=== PATIENT | male | born 1985 | race Hispanic/Latino ===

== ENCOUNTER 2020-02-16 19:15 | Emergency (ER) | payer BC, OTHER ==
--- OUTSIDE RECORDS SUMMARY | 2020-02-16 19:18 | XMS REPORT | Summary of Care ---
:1985 Author Organization [facility] Address [address] [place] [id number] Care Team Providers Name Role Phone Pcp, Does Not Have A Primary Care Provider Reason for Visit Reason Comments Fever All symptoms started Sunday afternoon. Sore Throat Cough Shortness of Breath Chills Headache Fatigue Exposure Pt states he works at the [employer] and was informed yesterday that a whole shift tested positiv e. Encounter Details Date Type Department Care Team Description 02/11/2020 Urgent Care [facility] Family Lucero Berman, LUCIA [address] [place] [address] [place] [address] Fever, unspecified fever cause (Primary Dx); [facility] [place] [address], Acute Care Clinic Sore throat; [address] [place] [address] Cough; Drive SOB (shortness of breath) [place] [address] Allergies Active Allergy Reactions Severity Noted Date Comments Amoxicillin Hives 02/27/2016 Penicillins Hives 02/27/2016 documented as of this encounter (statuses as of 02/11/2020) Medications Medication Sig Dispensed Refills Start Date End Date Status ALBUTEROL INHALE Inhale 2 Puffs as 0 Active needed for Other (Wheezing). traMADOL (ULTRAM) Take 1 tablet by mouth every 6 (six) hours as needed for Pain (scale 4-6). Miguel Johansen PA-C / Nicolás Kellogg MD 20 tablet 0 0 02/27/2016 Active 50 mg tablet [facility]# [id number] [facility]# [id number] Or Lic.# [id number] [facility]# [id number] omeprazole Take 1 capsule by 30 capsule 0 03/06/2016 Active (PRILOSEC) 40 mg mouth daily. capsule benzonatate 200 mg Take 1 capsule by 30 capsule 0 02/11/2020 0 02/21/2020 Active capsuleIndications: mouth 3 (three) Cough times daily as needed for Cough for up to 10 days. albuterol 90 Inhale 2 Puffs 8.5 g 0 02/11/2020 03/12/2020 Active mcg/actuation every 6 (six) inhalerIndications: hours as needed SOB (shortness of for Wheezing or breath) Shortness of Breath for up to 30 days. documented as of this encounter (statuses as of 02/11/2020) Active Problems No known active problemsdocumented as of this encounter (statuses as of 02/11/2020) Social History Tobacco Use Types Packs/Day Years Used Date Never Smoker Smokeless Tobacco: Never Used Sex Assigned at Date Recorded Not on file Job Start Date Occupation Industry Not on file Not on file Not on file Travel History Travel Start Travel End No recent travel history available. COVID-19 Exposure Response Date Recorded In the last month, have you been in contact with Yes 02/11/2020 9:13 AM CDT someone who was confirmed or suspected to have Coronavirus / COVID-19? documented as of this encounter Last Filed Vital Signs Vital Sign Reading Time Taken Comments Blood Pressure 131/85 02/11/2020 9:15 AM CDT Pulse 73 02/11/2020 9:15 AM CDT Temperature 37.2 C (98.9 F) 02/11/2020 9:15 AM CDT Respiratory Rate 20 02/11/2020 9:15 AM CDT Oxygen Saturation 96% 02/11/2020 9:15 AM CDT Inhaled Oxygen Concentration - - Weight 120.2 kg (265 lb) 02/11/2020 9:15 AM CDT Height 170.2 cm (5' 7") 02/11/2020 9:15 AM CDT Body Mass Index 41.5 02/11/2020 9:15 AM CDT documented in this encounter Progress Notes Ana Tavarez MA - 02/11/2020 9:00 AM CDT Zafar Guerin Jr. is a 34 year old male Chief Complaint Patient presents with Fever All symptoms started Sunday afternoon. 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 Vitals: 02/11/20 0915 BP: 131/85 Pulse: 73 Resp: 20 Temp: 37.2 C (98.9 F) SpO2: 96% Weight: 265 lb (120.2 kg) Height: 5' 7" (1.702 m) [email or web address] [id number] - [place] [address] [address] [facility] [email or web address] All Vitals taken, allergies and all medications reviewed, fall risk assessed. Pain level 0. Ana Tavarez MA Patient educated on plan of care for visit, swabbing technique, risks and benefits of test and length of time to receive results. Verbal consent obtained to perform test. CDC Fact Sheet for Patients nCoV Diagnostic Panel dated 11/09/2019 provided. Candy Contreras PA-C - 02/11/2020 9:00 AM CDT Cc: Chief Complaint Patient presents with Fever All symptoms started Sunday afternoon. Sore Throat Cough Shortness of Breath Chills Headache Fatigue Exposure Pt states he works at the [employer] and was informed yesterday that a whole shift tested positive. Zafar Guerin Jr. is a 34 year old male. HPI Patient presents with 4 day hx of cough, sore throat, fever (101.7F), sob, chills, body aches, fatigue, headache and staying about the same. He tried otc meds with relief. He has a hx of asthma, PNA, bronchitis. Has had exposure at work but not sure if in direct contact with positive covid employee Allergies Zafar is allergic to amoxicillin and pcn [penicillins]. Medications Outpatient Medications Prior to Visit Medication Sig Dispense Refill omeprazole (PRILOSEC) 40 mg capsule Take 1 capsule by mouth daily. 30 capsule 0 ALBUTEROL INHALE Inhale 2 Puffs as needed for Other (Wheezing). traMADOL (ULTRAM) 50 mg tablet Take 1 tablet by mouth every 6 (six) hours as needed for Pain (scale 4-6). Miguel Johansen PA-C / Nicolás Kellogg MD [facility]# [id number] [facility]# [id number] Or Lic.# [id number] NPI# [id number] 20 tablet 0 No facility-administered medications prior to visit. Histories History reviewed. No pertinent past medical history. History reviewed. No pertinent surgical history. Social History Socioeconomic History Marital status: Single Spouse name: Not on file Number of children: Not on file Years of education: Not on file Highest education level: Not on file Occupational History Not on file Social Needs Financial resource strain: Not on file Food insecurity: Worry: Not on file Inability: Not on file Transportation needs: Medical: Not on file Non-medical: Not on file Tobacco Use Smoking status: Not on file Substance and Sexual Activity Alcohol use: Not on file Drug use: Not on file Sexual activity: Not on file Lifestyle Physical activity: Days per week: Not on file Minutes per session: Not on file Stress: Not on file Relationships Social connections: Talks on phone: Not on file Gets together: Not on file Attends caodaism service: Not on file Active member of club or organization: Not on file Attends meetings of clubs or organizations: Not on file Relationship status: Not on file Intimate partner violence: Fear of current or ex partner: Not on file Emotionally abused: Not on file Physically abused: Not on file Forced sexual activity: Not on file Other Topics Concern Not on file Social History Narrative Not on file History reviewed. No pertinent family history. Review of Systems Constitutional: Positive for chills and fatigue. Negative for fever. HENT: Positive for sore throat. Negative for ear pain. Respiratory: Positive for cough and shortness of breath. Cardiovascular: Negative for chest pain and palpitations. Gastrointestinal: Negative. Genitourinary: Negative for dysuria and frequency. Musculoskeletal: Negative for myalgias. Skin: Negative for rash. Neurological: Positive for headaches. Psychiatric/Behavioral: The patient is not nervous/anxious. All other systems reviewed and are negative. Vital Signs BP 131/85 | Pulse 73 | Temp 37.2 C (98.9 F) | Resp 20 | Ht 5' 7" (1.702 m) | Wt 265 lb (120.2 kg) | SpO2 96% | BMI 41.50 kg/m Physical Exam Constitutional: He is oriented to person, place, and time. He appears well- developed and well-nourished. HENT: Right Ear: External ear normal. Left Ear: External ear normal. Nose: Nose normal. Mouth/Throat: Oropharynx is clear and moist. No oropharyngeal exudate. Neck: Normal range of motion. Cardiovascular: Normal rate and regular rhythm. Pulmonary/Chest: Effort normal and breath sounds normal. Abdominal: Soft. There is no tenderness. Musculoskeletal: Normal range of motion. Neurological: He is alert and oriented to person, place, and time. Psychiatric: He has a normal mood and affect. His behavior is normal. Judgment and thought content normal. Nursing note and vitals reviewed. Assessment/Plan 1. Fever, unspecified fever cause - COVID-19 (PCR MOLECULAR TESTING) 2. Sore throat - COVID-19 (PCR MOLECULAR TESTING) 3. Cough - COVID-19 (PCR MOLECULAR TESTING) - benzonatate 200 mg capsule; Take 1 capsule by mouth 3 (three) times daily as needed for Cough for up to 10 days. Dispense: 30 capsule; Refill: 0 4. SOB (shortness of breath) - COVID-19 (PCR MOLECULAR TESTING) - albuterol 90 mcg/actuation inhaler; Inhale 2 Puffs every 6 (six) hours as needed for Wheezing or Shortness of Breath for up to 30 days. Dispense: 8.5 g; Refill: 0 ER warnings and home care instructions given Return if symptoms worsen or fail to improve. You visited a COVID 19 clinic today and were tested for COVID 19. We are still awaiting results. At this time, we recommend that you remain in self quarantine along with those in your immediate household until the results are back. This process is taking approximately 72 hours. We will contact you with the results and instructions upon their receipt. Until you receive your results, please follow the advice you received in your AVS and the CDC document on what to do if you are sick with COVID. Please stay inside and preferably in one room. Avoid close contact with your family and neighbors to prevent further spread. Wear a face mask if in the presence of someone else. Do not share household items such as dishes and toiletries. Be sure to clean your space thoroughly and wash your hands frequently. You should self-quarantine until you no longer have a fever without taking fever reducing medications for 3 days and are at least 10 days from your first symptoms. Wear a mask in public subsequently until it has been greater than 14 days from your first symptom. Most people feel better within 7-14 days. If your symptoms are worsening and you feel very short of breath and you have difficulty performing basic tasks such as walking to the bathroom or preparing food, we would like you to contact the [facility] at [phone] or toll free to talk with a nurse or, if your symptoms are urgent, go to the nearest Emergency Room. Please wear a face mask and call prior to going to a healthcare facility. documented in this encounter Plan of Treatment Name Type Priority Associated Diagnoses Order S chedule COVID-19 (PCR MOLECULAR LAB Routine Fever, unspecifie d fever Ordered: 02/11/2020 TESTING) cause Sore throat Cough SOB (shortness of breath) Health Maintenance Due Date Last Done Comments VARICELLA VACCINES (1 of 2 - 1987 2-dose childhood series) DTaP,Tdap,and Td Vaccines ( - 1997 Tdap) Depression Screening 1998 INFLUENZA VACCINE (Season Ended) 2020 PNEUMOCOCCAL 0-64 YEARS COMBINED Aged Out No longer eligible based on SERIES patient's age to complete this topic documented as of this encounter Results Not on filedocumented in this encounter Visit Diagnoses Diagnosis Fever, unspecified fever cause - Primary Sore throat Acute pharyngitis Cough SOB (shortness of breath) Shortness of breath documented in this encounter Insurance Payer Benefit Plan Subscriber ID Effective Dates Phone Address Type / Group [facility] [id number] 2018-Faith [phone] [address] P[place] [id number] [place] [address] [phone] (Work) documented as of this encounter
--- OUTSIDE RECORDS SUMMARY | 2020-02-16 19:18 | XMS REPORT | Continuity of Care Document ---
:1985 Author Organization [facility] t Address [address] [place] [address] Care Team Providers Name Role Phone Pob1, [facility] Attending Clinician Unavailable Problems This patient has no known problems. Allergies, Adverse Reactions, Alerts This patient has no known allergies or adverse reactions. Medications This patient has no known medications. Procedures This patient has no known procedures. Encounters Start End Encounter Admission Attending Care Care Encounter Source Date/Time Date/Time Type Type Clinicians Facility Department ID 2020-02-11 2020-02-11 Urgent Pob1, Acute [facility] [id number] 09:04:57 09:42:48 [facility] [id number] [place] [id number] Mel [phone] [address] Results This patient has no known results.
[2020-02-16] MEDS ORDERED: NA CHLORIDE 0.9% 2,000 ML ONE (19:58)
[2020-02-16 20:34] LABS: Absolute Lymphocytes (CBC) 1.2 K/uL (0.7-4.9); Basophils % 0.6 % (0-1.3); Hematocrit 46.3 % (39.6-49.0); Lymphocytes % 18.6 % (15.3-44.8); MPV 8.3 fL (7.6-11.3); RBC Red Blood Cell Count 5.71 M/uL (4.33-5.43)
[2020-02-16 20:50] LABS: Protime INR 1.11
[2020-02-16 20:56] LABS: ALT/SGPT 94 U/L (12-78); AST/SGOT 58 U/L (15-37); Albumin 3.9 g/dL (3.4-5.0); Alkaline Phosphatase 99 U/L (45-117); BUN Blood Urea Nitrogen 15 mg/dL (7-18); Bicarbonate 26 mmol/L (21-32); Bilirubin Direct < 0.1 mg/dL (0-0.2); Bilirubin Total 0.4 mg/dL (0.2-1.0); CKMB Creatine Kinase MB < 1.0 ng/mL (0.3-3.6); Creatine Phosphokinase 173 U/L (39-308); Ferritin 413.5 ng/mL (26-388); Glucose Level 92 mg/dL (74-106); Lipase 133 U/L (73-393); Potassium 3.7 mmol/L (3.5-5.1); Protein, Total 8.7 g/dL (6.4-8.2); Sodium Level 138 mmol/L (136-145)
--- NOTE | 2020-02-16 21:08 | RAD REPORT ---
EXAM DESCRIPTION: RAD - Chest Single View - 02/16/2020 9:01 pm CLINICAL HISTORY: SOB Chest pain. COMPARISON: CHEST SINGLE VIEW dated 03/25/2010; CHEST PA AND LAT 2 VIEW dated 10/17/2007 FINDINGS: Portable technique limits examination quality. The lungs are grossly clear. The heart is normal in size. No displaced fractures. IMPRESSION: No acute intrathoracic process suspected.
--- NOTE | 2020-02-16 21:50 | EDPHYS ---
Physician Documentation [facility] Name: Zafar uGerin Jr Age: 34 yrs Sex: Male : 1985 Arrival Date: 02/16/2020 Time: 19:21 Bed 6 Private MD: ED Physician David Palomares HPI: 02/15 21:24 This 34 yrs old Male presents to ER via Ambulatory with complaints of snw Breathing Difficulty. 21:24 The patient has shortness of breath at rest. Onset: The symptoms/episode began/occurred snw gradually, 1.5 week(s) ago, and became worse and became persistent. Duration: The symptoms are continuous. Associated signs and symptoms: Pertinent positives: non-productive cough, fever, vomiting. Severity of symptoms: At their worst the symptoms were moderate in the emergency department the symptoms are unchanged. The patient has not experienced similar symptoms in the past. The patient has been recently seen by a physician: with similar presenting complaints, and apparently given a diagnosis of CoVid 19. Historical: - Allergies: 19:38 PENICILLINS; ca1 19:38 Amoxicillin; ca1 - Home Meds: 19:38 benzonatate oral oral [Active]; Albuterol Inhl [Active]; ca1 - PMHx: 19:38 None; ca1 - PSHx: 19:38 None; ca1 - Immunization history:: Adult Immunizations up to date. - Social history:: Smoking status: Patient denies any tobacco usage or history of. ROS: 21:24 Eyes: Negative for injury, pain, redness, and discharge, ENT: Negative for injury, snw pain, and discharge, Neck: Negative for injury, pain, and swelling, Cardiovascular: Negative for chest pain, palpitations, and edema. 21:24 Back: Negative for injury and pain, : Negative for injury, bleeding, discharge, and swelling, MS/Extremity: Negative for injury and deformity, Skin: Negative for injury, rash, and discoloration, Neuro: Negative for headache, weakness, numbness, tingling, and seizure, Psych: Negative for depression, anxiety, suicide ideation, homicidal ideation, and hallucinations. 21:24 Constitutional: Positive for body aches, fatigue, fever, malaise, poor PO intake. 21:24 Respiratory: Positive for cough, dyspnea on exertion, shortness of breath. 21:24 Abdomen/GI: Positive for nausea, vomiting. Exam: 21:22 Head/Face: Normocephalic, atraumatic. Eyes: Pupils equal round and reactive to light, snw extra-ocular motions intact. Lids and lashes normal. Conjunctiva and sclera are non-icteric and not injected. Cornea within normal limits. Periorbital areas with no swelling, redness, or edema. ENT: Nares patent. No nasal discharge, no septal abnormalities noted. Tympanic membranes are normal and external auditory canals are clear. Oropharynx with no redness, swelling, or masses, exudates, or evidence of obstruction, uvula midline. Mucous membranes moist. Neck: Trachea midline, no thyromegaly or masses palpated, and no cervical lymphadenopathy. Supple, full range of motion without nuchal rigidity, or vertebral point tenderness. No Meningismus. Chest/axilla: Normal chest wall appearance and motion. Nontender with no deformity. No lesions are appreciated. 21:22 Back: No spinal tenderness. No costovertebral tenderness. Full range of motion. Skin: Warm, dry with normal turgor. Normal color with no rashes, no lesions, and no evidence of cellulitis. MS/ Extremity: Pulses equal, no cyanosis. Neurovascular intact. Full, normal range of motion. Neuro: Awake and alert, GCS 15, oriented to person, place, time, and situation. Cranial nerves II-XII grossly intact. Motor strength 5/5 in all extremities. Sensory grossly intact. Cerebellar exam normal. Normal gait. Psych: Awake, alert, with orientation to person, place and time. Behavior, mood, and affect are within normal limits. 21:22 Constitutional: The patient appears alert, awake, anxious, febrile, obese, uncomfortable. 21:22 Cardiovascular: Rate: tachycardic, Rhythm: regular. 21:22 Respiratory: the patient does not display signs of respiratory distress, Respirations: shallow respirations, tachypnea, persistent cough, Breath sounds: bronchial sounds, that are moderate, are heard diffusely, Respiratory rate: 24 21:22 Abdomen/GI: Inspection: abdomen appears normal, obese Bowel sounds: normal, Palpation: abdomen is soft and non-tender. Vital Signs: 19:32 BP 123 / 80; Pulse 105; Resp 22; Temp 100.5(O); Pulse Ox 95% on R/A; Weight 120.2 kg ca1 (R); Height 5 ft. 7 in. (170.18 cm) (R); Pain 3/10; 20:26 BP 116 / 66; Pulse 87; Resp 21 S; Pulse Ox 96% on 2 lpm NC; jd3 21:11 BP 110 / 77; Pulse 83; Resp 19 S; Pulse Ox 98% on 2 lpm NC; jd3 21:58 Pulse 85; Resp 19 S; Pulse Ox 98% on R/A; jd3 22:49 Temp 99.0(O); jd3 19:32 Body Mass Index 41.50 (120.20 kg, 170.18 cm) ca1 MDM: 20:22 Patient medically screened. snw 21:25 Data reviewed: vital signs, nurses notes, lab test result(s), radiologic studies. Data snw interpreted: Pulse oximetry: on room air is 98 %. Interpretation: normal. Counseling: I had a detailed discussion with the patient and/or guardian regarding: the historical points, exam findings, and any diagnostic results supporting the discharge/admit diagnosis, lab results, radiology results, the need for outpatient follow up, to return to the emergency department if symptoms worsen or persist or if there are any questions or concerns that arise at home. Response to treatment: the patient's symptoms have mildly improved after treatment. Physician consultation: Ryan Sandhu was called at 21:27, was contacted at 21:27, regarding admission, to the medical/surgical unit. and will see patient in ED, shortly. 02/15 19:48 Order name: Basic Metabolic Panel; Complete Time: 20:58 snw 02/15 19:48 Order name: Blood Culture Adult (2) snw 02/15 19:48 Order name: CBC with Diff; Complete Time: 20:41 snw 02/15 19:48 Order name: Ckmb; Complete Time: 20:58 snw 02/15 19:48 Order name: CPK; Complete Time: 20:58 snw 02/15 19:48 Order name: Lactate; Complete Time: 21:07 snw 02/15 19:48 Order name: LFT's; Complete Time: 20:58 snw 02/15 19:48 Order name: Lipase; Complete Time: 20:58 snw 02/15 19:48 Order name: Procalcitonin; Complete Time: 21:18 snw 02/15 19:48 Order name: Protime (+inr); Complete Time: 20:58 snw 02/15 19:48 Order name: Ptt, Activated; Complete Time: 20:58 snw 02/15 19:48 Order name: Chest Single View XRAY; Complete Time: 21:14 snw 02/15 19:48 Order name: COVID-19 snw 02/15 19:48 Order name: Ferritin; Complete Time: 20:58 snw 02/15 19:48 Order name: Accucheck; Complete Time: 20:22 snw 02/15 19:48 Order name: Cardiac monitoring; Complete Time: 20:22 snw 02/15 19:48 Order name: IV Saline Lock - Large Bore; Complete Time: 20:22 snw 02/15 19:48 Order name: Labs collected and sent; Complete Time: 20:22 snw 02/15 19:48 Order name: O2 Per Protocol; Complete Time: 19:49 snw 02/15 19:48 Order name: O2 Sat Monitoring; Complete Time: 19:49 snw Administered Medications: 19:50 Not Given (Duplicate Order): NS 0.9% (30 ml/kg) 30 ml/kg IV at bolus once; Sepsis snw Protocol 20:22 Drug: NS 0.9% 1000 ml Route: IV; Rate: 1 bolus; Site: right antecubital; jd3 21:20 Follow up: Response: No adverse reaction; IV Status: Completed infusion; IV Intake: jd3 1000ml 20:23 Drug: NS 0.9% 1000 ml Route: IV; Rate: 1 bolus; Site: right antecubital; jd3 22:50 Follow up: Response: No adverse reaction; IV Status: Completed infusion; IV Intake: jd3 1000ml Disposition: 02/16 06:40 Co-signature as Attending Physician, David Palomares MD. [email or web address] Disposition: 02/16/20 21:49 Discharged to Home. Impression: Acute upper respiratory infection, unspecified - CoVid 19 positive, Fever presenting with conditions classified elsewhere. - Condition is Stable. - Discharge Instructions: Upper Respiratory Infection, Adult, Viral Respiratory Infection, Rehydration, Adult. - Work release form, Medication Reconciliation Form, Thank You Letter, Antibiotic Education, Prescription Opioid Use form. - Follow up: Emergency Department; When: As needed; Reason: Trouble breathing, Worsening of condition. Follow up: Private Physician; When: 1 week; Reason: Recheck today's complaints, Continuance of care, Re-evaluation by your physician. - Notes: Continue Issac and Kristin Hughes as directed. Signatures: Dispatcher [employer] EDMS Tsering Garces, PHOTORADIO OPERATOR-C PHOTORADIO OPERATOR-Csnw Beto Lopez RN RN jd3 Miranda Patel MD MD ma2 Michelle Ahuja RN RN ca1 David Palomares MD MD [email or web address] Corrections: (The following items were deleted from the chart) 02/15 20:22 19:48 EKG - Nurse/Tech ordered. snw jd3 22:49 21:49 02/16/2020 21:49 Discharged to Home. Impression: Acute upper respiratory jd3 infection, unspecified - CoVid 19 positive; Fever presenting with conditions classified elsewhere. Condition is Stable. Forms are Medication Reconciliation Form, Thank You Letter, Antibiotic Education, Prescription Opioid Use. Follow up: Emergency Department; When: As needed; Reason: Trouble breathing, Worsening of condition. Follow up: Private Physician; When: 1 week; Reason: Recheck today's complaints, Continuance of care, Re-evaluation by your physician. w
--- NOTE | 2020-02-16 21:50 | ER ---
Nurse's Notes [facility] Name: Zafar Guerin Jr Age: 34 yrs Sex: Male : 1985 Arrival Date: 02/16/2020 Time: 19:21 Bed 6 Private MD: Diagnosis: Acute upper respiratory infection, unspecified-CoVid 19 positive;Fever presenting with conditions classified elsewhere Presentation: 02/15 19:32 Chief complaint: Patient states: "I tested positive for Covid on Sunday. My cough is ca1 getting worse that I throw up, I get really short of breath with exertion, and I am having chest pains and tightness" Reports Htemp 101.7. 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 Coronavirus screen: Surgical mask placed on patient. Patient moved to private room, placed in contact and droplet isolation with eye protection until further assessment. Patient reports a cough. Patient reports shortness of breath or difficulty breathing. Patient reports a measured and/or subjective temperature greater than 100.4F. Patient denies travel on a cruise ship or to a country the [facility] currently lists as an affected area. Patient denies contact with known and/or suspected case of COVID-19. Prior COVID test collected on: Swabbed on February 10. Resulted February 12. Tested at [facility] [place]. Ebola Screen: Patient negative for fever greater than or equal to 101.5 degrees Fahrenheit, and additional compatible Ebola Virus Disease symptoms Patient denies exposure to infectious person. Patient denies travel to an Ebola-affected area in the 21 days before illness onset. No symptoms or risks identified at this time. Initial Sepsis Screen: Does the patient meet any 2 criteria? RR > 20 per min. HR > 90 bpm. Yes Does the patient have a suspected source of infection? Yes: Productive cough/pneumonia. Risk Assessment: Do you want to hurt yourself or someone else? Patient reports no desire to harm self or others. Onset of symptoms was February 16, 2020. 19:32 Method Of Arrival: Ambulatory ca1 19:32 Acuity: NUBIA 2 ca1 Triage Assessment: 20:26 Respiratory: Onset: The symptoms/episode began/occurred at an unknown time. the patient jkalyn has moderate shortness of breath. Historical: - Allergies: 19:38 PENICILLINS; ca1 19:38 Amoxicillin; ca1 - Home Meds: 19:38 benzonatate oral oral [Active]; Albuterol Inhl [Active]; ca1 - PMHx: 19:38 None; ca1 - PSHx: 19:38 None; ca1 - Immunization history:: Adult Immunizations up to date. - Social history:: Smoking status: Patient denies any tobacco usage or history of. Screenin:26 Abuse screen: Denies threats or abuse. Nutritional screening: No deficits noted. jd3 Tuberculosis screening: No symptoms or risk factors identified. Fall Risk Ambulatory Aid- None/Bed Rest/Nurse Assist (0 pts). Gait- Normal/Bed Rest/Wheelchair (0 pts) Mental Status- Oriented to own ability (0 pts). Total Gallagher Fall Scale indicates No Risk (0-24 pts). Assessment: 20:24 General: Appears uncomfortable, Behavior is calm, cooperative, appropriate for age. jd3 Pain: Complains of pain in chest Quality of pain is described as pressure. Neuro: Level of Consciousness is awake, alert, obeys commands, Oriented to person, place, time, situation. Cardiovascular: Capillary refill < 3 seconds Patient's skin is warm and dry. Rhythm is sinus tachycardia. Respiratory: Reports shortness of breath at rest cough that is non-productive, persistent Airway is patent Respiratory effort is labored, Respiratory pattern is symmetrical, tachypnea Breath sounds are diminished bilaterally. GI: Abdomen is round non-distended, Reports nausea, Patient currently denies abdominal pain. : No signs and/or symptoms were reported regarding the genitourinary system. EENT: No signs and/or symptoms were reported regarding the EENT system. Derm: Skin is intact, Skin is dry, Skin is normal, Skin temperature is warm. Musculoskeletal: Circulation, motion, and sensation intact. Range of motion: intact in all extremities. 21:11 Reassessment: Patient appears in no apparent distress at this time. No changes from jd3 previously documented assessment. Patient and/or family updated on plan of care and expected duration. Pain level reassessed. 21:22 Reassessment: hospitalist at bedside, awaiting disposition. jd3 21:57 Reassessment: Patient appears in no apparent distress at this time. Patient and/or [facility] family updated on plan of care and expected duration. Pain level reassessed. Patient is alert, oriented x 3, equal unlabored respirations, skin warm/dry/pink. awaiting fluid infusion prior to discharge Patient states feeling better. Vital Signs: 19:32 BP 123 / 80; Pulse 105; Resp 22; Temp 100.5(O); Pulse Ox 95% on R/A; Weight 120.2 kg ca1 (R); Height 5 ft. 7 in. (170.18 cm) (R); Pain 3/10; 20:26 BP 116 / 66; Pulse 87; Resp 21 S; Pulse Ox 96% on 2 lpm NC; jd3 21:11 BP 110 / 77; Pulse 83; Resp 19 S; Pulse Ox 98% on 2 lpm NC; jd3 21:58 Pulse 85; Resp 19 S; Pulse Ox 98% on R/A; jd3 22:49 Temp 99.0(O); jd3 19:32 Body Mass Index 41.50 (120.20 kg, 170.18 cm) ca1 ED Course: 19:21 Patient arrived in ED. ag3 19:37 Triage completed. ca1 19:38 Arm band placed on right wrist. ca1 19:40 Tsering Garces FNP-C is PHCP. snw 19:40 David Palomares MD is Attending Physician. snw 20:03 Beto Lopez RN is Primary Nurse. jd3 20:23 Inserted saline lock: 18 gauge in right antecubital area, using aseptic technique. jd3 Blood collected. placed by Tsering PALOMO. 20:26 Patient has correct armband on for positive identification. Placed in gown. Bed in low jd3 position. Call light in reach. Side rails up X 1. personnel monitor on. Pulse ox on. NIBP on. 21:02 Chest Single View XRAY In Process Unspecified. EDMS 22:48 No provider procedures requiring assistance completed. IV discontinued, intact, jd3 bleeding controlled, No redness/swelling at site. Pressure dressing applied. Administered Medications: 19:50 Not Given (Duplicate Order): NS 0.9% (30 ml/kg) 30 ml/kg IV at bolus once; Sepsis snw Protocol 20:22 Drug: NS 0.9% 1000 ml Route: IV; Rate: 1 bolus; Site: right antecubital; jd3 21:20 Follow up: Response: No adverse reaction; IV Status: Completed infusion; IV Intake: jd3 1000ml 20:23 Drug: NS 0.9% 1000 ml Route: IV; Rate: 1 bolus; Site: right antecubital; jd3 22:50 Follow up: Response: No adverse reaction; IV Status: Completed infusion; IV Intake: jd3 1000ml Intake: 21:20 IV: 1000ml; Total: 1000ml. jd3 22:50 IV: 1000ml; Total: 2000ml. jd3 Outcome: 21:49 Discharge ordered by MD. collazo 22:48 Discharged to home ambulatory. jd3 22:48 Condition: stable 22:48 Discharge instructions given to patient, Instructed on discharge instructions, follow up and referral plans. Demonstrated understanding of instructions, follow-up care. 22:49 Patient left the ED. jd3 Addendum: 02/24/2020 15:21 Addendum: Other Pt notified of positive COVID result by Dr. Rodríguez. Pt reports this is s s his second positive test and has been in contact with the health department. Signatures: Dispatcher [employer] EDNY Tsering Garces, PER-C TOW PICKER-Connie Metz RN RN ss Beto Lopez RN RN jCarine Foster ag3 Michelle Ahuja RN RN ca1 Corrections: (The following items were deleted from the chart) 02/15 19:37 19:32 Initial Sepsis Screen: Does the patient meet any 2 criteria? No. Patient's ca1 initial sepsis screen is negative. Does the patient have a suspected source of infection? No. Patient's initial sepsis screen is negative. ca1 19:37 19:32 Acuity: NUBIA 3 ca1 ca1
--- NOTE | 2020-02-16 22:36 | P.CNS ---
Date of Consult: 02/16/20 34-year-old presents to the ED with a complaint of coughing spells and shortness of breath. He recently tested positive for Covid 19. His girlfriend has been hospitalized due to Covid infection. Patient reports an episode of fever this morning. Chest x-ray in the ED shows no acute infiltrate. Patient reported his symptoms had improved after a few hours in the ED. He is not requiring oxygen. His oxygen saturations 98% on room air. He is not septic. Benefit of hospitalization is very minimal at this time. His clinical condition does not warrant admission at this time.
[2020-02-16 23:21] VITALS: BP 110/77; O2SAT 98
[2020-02-16 23:23] VITALS: TEMP 99
== END 2020-02-16 22:49 | disposition home or self-care (01) ==
LOC: ER 19:15
DX: U07.1 COVID-19 (principal); J06.9 Acute upper respiratory infection, unspecified; Z88.0 Allergy status to penicillin; Z88.1 Allergy status to other antibiotic agents
CPT/HCPCS: 96361; 87040 ×2; 85025; 80048; 36415; 82550; 85610; 80076; 83605; 85730; 82553; 82728; 83690; 84145; 71045; 96360; 99284; U0002; J7030

== ENCOUNTER 2021-06-18 07:31 | Emergency (ER) | payer BC, SELFPAY ==
[2021-06-18] MEDS ORDERED: LIDOCAINE 1% MPF 5 ML VIAL ONE (08:21)
[2021-06-18] MEDS ORDERED: BUPIVACAINE 0.5% PF 10 ML VIAL ONE (08:21)
--- NOTE | 2021-06-18 08:28 | EDPHYS ---
Physician Documentation [facility] Name: Zafar Guerin Jr Age: 35 yrs Sex: Male : 1985 Arrival Date: 06/18/2021 Time: 07:33 Bed 13 Private MD: ED Physician Miranda Patel HPI: 06/18 07:50 This 35 yrs old Male presents to ER via Ambulatory with complaints of Foreign cp Body - In Toe. 07:50 The patient or guardian reports the patient has a suspected foreign body, of the right cp foot. The reported likely foreign body is sliver of wood. 07:50 Onset: The symptoms/episode began/occurred 2 day(s) ago. cp 07:50 Current symptoms: pain, in the area of the foreign body. Treatment Prior to Arrival: cp none. Historical: - Allergies: 07:41 Amoxicillin; aa5 07:41 PENICILLINS; aa5 - PMHx: 07:41 Asthma; aa5 - PSHx: 07:41 Ear tubes; aa5 - Immunization history:: Client reports having NOT received the Covid vaccine. Last tetanus immunization: unknown. - Social history:: Smoking status: Patient denies any tobacco usage or history of. ROS: 07:10 Constitutional: Negative for fever. cp 07:10 Skin: Positive for foreign body sensation plantar surface of right small toe. 07:10 All other systems are negative. Exam: 07:15 Constitutional: The patient appears in no acute distress, alert, awake, non-toxic, well cp developed, well nourished. 07:15 Head/Face: Normocephalic, atraumatic. cp 07:15 Chest/axilla: Inspection: normal. 07:15 Cardiovascular: Rate: normal. 07:15 Respiratory: the patient does not display signs of respiratory distress, Respirations: normal. 07:15 Skin: superficial wooden sliver noted plantar surface at base of right fifth toe. Vital Signs: 07:40 Pulse 84; Resp 18 S; Temp 97.2(TE); Pulse Ox 97% on R/A; Weight 126.1 kg (R); Height 5 aa5 ft. 7 in. (170.18 cm) (R); 07:44 BP 153 / 106; Pulse 85; Resp 16; Pulse Ox 100% on R/A; dh3 07:40 Body Mass Index 43.54 (126.10 kg, 170.18 cm) aa5 Procedures: 08:30 Foreign Body Removal: sliver of wood, from the plantar surface base of right fifth toe, cp by using a hemostat, needle. MDM: 07:42 Patient medically screened. cp 08:28 Data reviewed: vital signs, nurses notes, and as a result, I will discharge patient. cp 08:28 Counseling: I had a detailed discussion with the patient and/or guardian regarding: the cp historical points, exam findings, and any diagnostic results supporting the discharge/admit diagnosis, to return to the emergency department if symptoms worsen or persist or if there are any questions or concerns that arise at home. Special discussion: I discussed in detail with the patient the higher chance of wound infection based on his presenting history. 06/18 07:43 Order name: Dressing - Wound; Complete Time: 08:09 cp 06/18 07:43 Order name: Gloves, Sterile; Complete Time: 08:09 cp 06/18 07:43 Order name: Setup Suture Tray; Complete Time: 08:02 cp Administered Medications: No medications were administered Disposition: 08:30 Chart complete. cp 17:31 Co-signature as Attending Physician, Miranda Patel MD PA/DOCUMENT PHOTOGRAPHER's history reviewed, ma2 patient interviewed, and examined. I agree with assessment and care plan and confirm the diagnosis (es) above. Disposition Summary: 06/18/21 08:28 Discharge Ordered Location: Home cp Problem: new cp Symptoms: have improved cp Condition: Stable cp Diagnosis - Superficial foreign body of toe - splinter, right fifth toe cp Followup: cp - With: Private Physician - When: 1 - 2 days - Reason: Worsening of condition Discharge Instructions: - Discharge Summary Sheet cp - Hand or Foot Foreign Body, Adult cp Forms: - Medication Reconciliation Form cp - Thank You Letter cp - Antibiotic Education cp - Prescription Opioid Use cp - Work release form eb Prescriptions: - Cephalexin 500 mg Oral Capsule - take 1 capsule by ORAL route every 8 hours for 10 days; 30 capsule; Refills: 0, cp Product Selection Permitted - Ibuprofen 800 mg Oral Tablet - take 1 tablet by ORAL route every 8 hours As needed take with food; 30 tablet; cp Refills: 0, Product Selection Permitted Signatures: Tiffanie Jensen RN RN aa5 Richard Lewis PA PA cp Miranda Patel MD MD ma2 Corrections: (The following items were deleted from the chart) 17:06/17 07:10 Skin: Positive for foreign body sensation plantar surface of right small cp toe, cp 06/18 17:06/17 07:10 Constitutional: Negative for fever, cp cp 06/18 17:06/17 07:10 All other systems are negative, cp cp
--- NOTE | 2021-06-18 08:28 | ER ---
Nurse's Notes [facility] Name: Zafar Guerin Jr Age: 35 yrs Sex: Male : 1985 Arrival Date: 06/18/2021 Time: 07:33 Bed 13 Private MD: Diagnosis: Superficial foreign body of toe-splinter, right fifth toe Presentation: 06/18 07:39 Chief complaint: Patient states: "I had a splinter on my boot and when I went to step aa5 it got into my toe and it's been there for about 2 days now". Reports FB to right foot. Onset of symptoms was May 2021. 07:39 Acuity: NUBIA 4 aa5 07:40 Coronavirus screen: At this time, the client does not indicate any symptoms associated aa5 with coronavirus-19. Ebola Screen: No symptoms or risks identified at this time. Initial Sepsis Screen: Does the patient meet any 2 criteria? No. Patient's initial sepsis screen is negative. Does the patient have a suspected source of infection? No. Patient's initial sepsis screen is negative. Risk Assessment: Do you want to hurt yourself or someone else? Patient reports no desire to harm self or others. 07:40 Method Of Arrival: Ambulatory aa5 Historical: - Allergies: 07:41 Amoxicillin; aa5 07:41 PENICILLINS; aa5 - PMHx: 07:41 Asthma; aa5 - PSHx: 07:41 Ear tubes; aa5 - Immunization history:: Client reports having NOT received the Covid vaccine. Last tetanus immunization: unknown. - Social history:: Smoking status: Patient denies any tobacco usage or history of. Vital Signs: 07:40 Pulse 84; Resp 18 S; Temp 97.2(TE); Pulse Ox 97% on R/A; Weight 126.1 kg (R); Height 5 aa5 ft. 7 in. (170.18 cm) (R); 07:44 BP 153 / 106; Pulse 85; Resp 16; Pulse Ox 100% on R/A; dh3 07:40 Body Mass Index 43.54 (126.10 kg, 170.18 cm) aa5 ED Course: 07:33 Patient arrived in ED. ds1 07:37 Richard Lewis PA is PHCP. cp 07:37 Miranda Patel MD is Attending Physician. cp 07:39 Arm band placed on. aa5 07:40 Triage completed. aa5 07:51 Ross Lord, RN is Primary Nurse. ae4 Administered Medications: No medications were administered Outcome: 08:28 Discharge ordered by . cp 08:55 Patient left the ED. ae4 Signatures: Ghada Good ds1 Tiffanie Jensen, RN RN aa5 Richard Lewis PA PA Radha Prater [facility] Ross Lord, RN RN ae4
[2021-06-18 08:58] VITALS: TEMP 97.2
[2021-06-18 09:00] VITALS: BP 153/106; O2SAT 100
== END 2021-06-18 08:55 | disposition home or self-care (01) ==
LOC: ER 07:31
DX: S90.454A Superficial foreign body, right lesser toe(s), initial encounter (principal); X58.XXXA Exposure to other specified factors, initial encounter; Y93.9 Activity, unspecified; Y92.9 Unspecified place or not applicable; Z88.0 Allergy status to penicillin; Z88.1 Allergy status to other antibiotic agents
CPT/HCPCS: 99281

== ENCOUNTER 2022-05-16 13:28 | Emergency (ER) | payer SELFPAY ==
--- OUTSIDE RECORDS SUMMARY | 2022-05-16 13:34 | XMS REPORT | Continuity of Care Document ---
:1985 Author Organization [facility] t Address [address] [place] [address] Care Team Providers Name Role Phone Pcp, Patient Does Not Have A Primary Care Physician [phone] HAWA MCGEE Attending Clinician Unavailable Radha Hughes RN Attending Clinician Unavailable Only, Jose Db Test Attending Clinician Unavailable Enrique Thorne MD Attending Clinician ENRIQUE THORNE Attending Clinician Unavailable Hawa Mcgee MD Attending Clinician Peg Mooney Attending Clinician Doctor Unassigned, [place] Attending Clinician Unavailable Broderick RYAN, Marisel Ng Attending Clinician Unavailable Campos Bermudez MD Attending Clinician Chris Downey MD Attending Clinician Monty Milner MD Attending Clinician Brenda Perez Attending Clinician Corona Reed DO Attending Clinician Provider, [facility] Attending Clinician Unavailable Aneyesenia ALBARADO Brenda Attending Clinician BRENDA HILL Attending Clinician Unavailable [facility] Attending Clinician Unavailable Jaimee Alejo Attending Clinician JAIMEE MANDUJANO Attending Clinician Unavailable HAWA MCGEE Admitting Clinician Unavailable Juanah MD, Monty Admitting Clinician Payers Payer Name Policy Type Policy Number Effective Date Expiration Date Elicia bach [facility] [id number] 2018 00:00:00 Problems Condition Condition Condition Status Onset Resolution Last Treating Co mments Source Name Details Category Date Date Treatment Clinician Date IBD IBD Disease Active Univers (inflammat (inflammat 03-01 it [place] disease[place] disease[place] 00 Med[place] Branch Acute Acute Disease Active Univers appendicit appendicit 02-28 it y of is is 00:00: 00 Medical Branch Morbid Morbid Disease Active Univers obesity obesity 02-28 [place] of with body with body [place] mass index mass index 00 Me dical of of Branch 40.0-49.9 40.0-49.9 No known No known Disease Unive rs active active ity of problems problems [facility] [place] [facility] Allergies, Adverse Reactions, Alerts Allergy Allergy Status Severity Reaction(s) Onset Inactive Treating Comm ents Source Name Type Date Date Clinician IODINE Drug Active Hives Univers AND Class 7-05 ity of IODIDE 00:00: [place] CONTAINI 00 Medical Branch PRODUCTS Iodine Propensi Active Hives Univers And ty to 02-28 ity of Iodide adverse 00:00: [place] Containi reaction 00 Medica l s Branch Products AMOXICIL DRUG Active Hives Univers AMANDO INGREDI - ity of 00:00: [place] 00 Medical Branch PENICILL Drug Active Hives Univers INS Class 7-03 ity of 00:00: [place] 00 Medical Branch Amoxicil Propensi Active Hives Univer s amando ty to 02-26 ity of adverse 00:00: [place] reaction 00 Medical s Branch Penicill Propensi Active Hives Univer s ins ty to 02-26 ity of adverse 00:00: [place] reaction 00 Medical s Branch Social History Social Habit Start Date Stop Date Quantity Comments Source Exposure to Yes University of SARS-CoV-2 [place] [facility] (event) Branch Tobacco use and 2021-04-14 2021-04-14 Never used Universit y of exposure 00:00:00 00:00:00 [facility] [place] [facility] Alcohol intake 2021-04-14 2021-04-14 Current drinker Unive rsity of 00:00:00 00:00:00 of alcohol [place] [facility] (finding) Branch History SDOH 2021-02-28 2021-02-28 21 University o f Education 00:00:00 00:00:00 [facility] [place] [facility] Sex [birth year] Universit y of 00:00:00 00:00:00 [facility] [place] [facility] Smoking Status Start Date Stop Date Source Never smoker [facility] Branch Medications Ordered Filled Start Stop Current Ordering Indication Dosage Frequency Signature Comments Components Source Medication Medication Date Date Medication? Clinician (SIG) Name Name predniSONE 2020- No [id number] 40mg Take 2 Univers 20 mg 03-04- tablets by ity of tablet 00:00: 04:59 mouth [place] 00 :00 daily for Medical 4 days. Branch predniSONE 2020- No [id number] 40mg Take 2 Univers 20 mg 03-04-14 tablets by ity of tablet 00:00: 04:59 mouth [place] 00 :00 daily for Medical 4 days. Branch predniSONE 2020- No [id number] 40mg Take 2 Univers 20 mg 03-04-14 tablets by ity of tablet 00:00: 04:59 mouth [place] 00 :00 daily for Medical 4 days. Branch ALBUTEROL Yes 2{puff} Inhale 2 U nivers INHALE 7-08 Puffs as ity of 20:37: needed for [place] [address] Other Medical (Wheezing) Branch . ALBUTEROL Yes 2{puff} Inhale 2 U nivers INHALE 7-08 Puffs as ity of 20:37: needed for [place] [address] Other Medical (Wheezing) Branch . ALBUTEROL Yes 2{puff} Inhale 2 U nivers INHALE 7-08 Puffs as ity of 20:37: needed for [place] [address] Other Medical (Wheezing) Branch . ALBUTEROL Yes 2{puff} Inhale 2 U nivers INHALE 7-08 Puffs as ity of 20:37: needed for [place] [address] Other Medical (Wheezing) Branch . ALBUTEROL Yes 2{puff} Inhale 2 U nivers INHALE 7-08 Puffs as ity of 20:37: needed for [place] 21 Other Medical (Wheezing) Branch . ALBUTEROL Yes 2{puff} Inhale 2 U nivers INHALE 7-08 Puffs as ity of 20:37: needed for [place] 21 Other Medical (Wheezing) Branch . ALBUTEROL Yes 2{puff} Inhale 2 U nivers INHALE 7-08 Puffs as ity of 20:37: needed for [place] 21 Other Medical (Wheezing) Branch . ALBUTEROL Yes 2{puff} Inhale 2 U nivers INHALE 7-08 Puffs as ity of 20:37: needed for [place] 21 Other Medical (Wheezing) Branch . ALBUTEROL Yes 2{puff} Inhale 2 U nivers INHALE 7-08 Puffs as ity of 20:37: needed for [place] 21 Other Medical (Wheezing) Branch . ALBUTEROL Yes 2{puff} Inhale 2 U nivers INHALE 7-08 Puffs as ity of 20:37: needed for [place] 21 Other Medical (Wheezing) Branch . ALBUTEROL Yes 2{puff} Inhale 2 U nivers INHALE 7-08 Puffs as ity of 20:37: needed for [place] 21 Other Medical (Wheezing) Branch . ciprofloxac 2020- No [id number] 500mg Take 1 Univers in HCl 500 7-16 tablet by ity of mg tablet 00:00: 04:59 mouth [place] 00 :00 every 12 Medical (twelve) Branch hours for 7 days. ciprofloxac 2020- No [id number] 500mg Take 1 Univers in HCl 500 03-03-16 tablet by ity of mg tablet 00:00: 04:59 mouth [place] 00 :00 every 12 Medical (twelve) Branch hours for 7 days. ciprofloxac 2020- No [id number] 500mg Take 1 Univers in HCl 500 7-16 tablet by ity of mg tablet 00:00: 04:59 mouth [place] 00 :00 every 12 Medical (twelve) Branch hours for 7 days. ciprofloxac 2020- No [id number] 500mg Take 1 Univers in HCl 500 708 07-16 tablet by ity of mg tablet 00:00: 04:59 mouth [place] 00 :00 every 12 Medical (twelve) Branch hours for 7 days. ciprofloxac 2020- No [id number] 500mg Take 1 Univers in HCl 500 03-03-16 tablet by ity of mg tablet 00:00: 04:59 mouth [place] 00 :00 every 12 Medical (twelve) Branch hours for 7 days. ciprofloxac 2020- No [id number] 500mg Take 1 Univers in HCl 500 03-0316 tablet by ity of mg tablet 00:00: 04:59 mouth [place] 00 :00 every 12 Medical (twelve) Branch hours for 7 days. predniSONE 2020-2020- No [id number] 30mg Take 3 Univers 10 mg 03-03-14 tablets by ity of tablet 00:00: 04:59 mouth [place] 00 :00 daily for Medical 5 days. [place] predniSONE 2020- No [id number] 20mg Take 1 Univers 20 mg 03-03-14 tablet by ity of tablet 00:00: 04:59 mouth [place] 00 :00 daily for Medical 5 days. Branch predniSONE 2020- No [id number] 10mg Take 1 Univers 10 mg 03-03-14 tablet by ity of tablet 00:00: 04:59 mouth [place] 00 :00 daily for Medical 5 days. [place] predniSONE 2020- No [id number] 30mg Take 3 Univers 10 mg 03-03-14 tablets by ity of tablet 00:00: 04:59 mouth [place] 00 :00 daily for Medical 5 days. Branch predniSONE 2020- No [id number] 20mg Take 1 Univers 20 mg 03-03-14 tablet by ity of tablet 00:00: 04:59 mouth [place] 00 :00 daily for Medical 5 days. Branch predniSONE 2020- No [id number] 10mg Take 1 Univers 10 mg -04 02-14 tablet by ity of tablet 00:00: 04:59 mouth [place] 00 :00 daily for Medical 5 days. Branch predniSONE 2020- No [id number] 30mg Take 3 Univers 10 mg -04 02-14 tablets by ity of tablet 00:00: 04:59 mouth [place] 00 :00 daily for Medical 5 days. Branch predniSONE 2020- No [id number] 20mg Take 1 Univers 20 mg 03-03 tablet by ity of tablet 00:00: 04:59 mouth [place] 00 :00 daily for Medical 5 days. Branch predniSONE 2020- No [id number] 10mg Take 1 Univers 10 mg 03-03 tablet by ity of tablet 00:00: 04:59 mouth [place] 00 :00 daily for Medical 5 days. Branch predniSONE Yes 40mg 40 mg, Unive rs (DELTASONE) 7-07 Oral, ity of tablet 40 20:15: DAILY, [place] mg 00 First dose Medical on Sun03/02/21 at 1515, Until Discontinu ed, Routine morpHINE Yes 4mg 4 mg, Slow Uni vers injection 4 03-02 IV Push, ity of mg 02:04: Q4HPRN, [place] 31 Starting Medical 03/01/21 Branch at 2104, Until Discontinu ed, Routine, Pain (scale 7-10) pantoprazol Yes 40mg 40 mg, Univ ers e 7-06 Oral, ity of (PROTONIX) 14:00: DAILY, [place] EC tablet 00 First dose Medi alison 40 mg on Sun03/01/21 at 0900, Until Discontinu ed, Routine NaCl 0.9% Yes 1000mL at 125 [facility] ers (NS) IV 7-06 mL/hr, IV ity of infusion 01:15: Infusion, [place] 1,000 mL 00 CONTINUOUS Medic al , Starting [place] Sun02/28/21 at 2015, Until Discontinu ed, Routine ondansetron Yes 4mg 4 mg, Slow Univers (ZOFRAN 7- IV Push, ity of (PF)) 01:03: Q6HPRN, [place] injection 4 59 Starting Medi alison mg Sun02/28/21 Branch at 2002, Until Discontinu ed, Routine, Nausea and Vomiting (N/V) morpHINE 2020- No 4mg 4 mg, Slow Un neil injection 4 03-01 07-07 IV Push, ity of mg 01:03: 01:02 Q4RN, [place] 56 :56 Starting Medical [facility] 02/28/21 Branch at 2002, Until Sun03/01/21 at 2001, Routine, Pain (scale 7-10) HYDROcodone 2020- No 1{tbl} 1 tablet, Univers -acetaminop 03-01 Oral, ity of hen (NORCO 01:03: 01:02 Q6HPRN, [place] 5) 5-325 mg 51 :51 Starting Medi alison tablet 1 Sun02/28/21 Branc h tablet at 2002, Until Sun03/02/21 at 2001, Routine, Pain (scale 4-6) acetaminoph Yes 650mg 650 mg, Un neil en 03-01 Oral, ity of (TYLENOL) 01:03: Q6HPRN, [place] tablet 650 47 Starting Medic al mg Sun02/28/21 Branch at 2002, Until Discontinu ed, Routine, Pain (scale 1-3) metroNIDAZO Yes 500mg 500 mg, IV Univers LE in NaCl 03-01 Infusion, ity of (iso-os) 01:00: Q8H ABX, [place] (FLAGYL 00 First dose Medica l I.V.) RTU on Sun [place] IV infusion 02/28/21 at 500 mg 1999, Until Discontinu ed, 100 mL
Reas on for Anti-Infec tive: Documented Infection< br>Documen lien Infection Site: Abdominal< br>Dura tion of Therapy: Other (see Comments) ciprofloxac Yes 400mg 400 mg, IV Univers in in 5 % 03-01 Piggyback, ity of dextrose 01:00: Administer [place] (CIPRO) 00 over 60 Medical piggyback Minutes, Branch 400 mg Q12H ABX, First dose on Sun02/28/21 at 1999, Until Discontinu ed, MERI
Re ason for Anti-Infec tive: Documented Infection< br>Documen lien Infection Site: Abdominal< br>Duratio n of Therapy: Other (see Comments) diphenhydrA 2020- No 25mg 25 mg, Uni vers MINE 02-28 07-05 Slow IV ity of (BENADRYL) 22:11: 22:11 Push, [place] injection 00 :00 ONCE, 1 Medical 25 mg dose, [facility] 02/28/21 at 1715, STAT methylpredn 2020- No 125mg 125 mg, U nivers isolone sod 02-28 Slow IV ity of succ 22:10: 22:11 Push, [place] (SOLU-MEDRO 00 :00 ONCE, 1 Medic al L) dose, [facility] injection 02/28/21 at 125 mg 1715, STAT iopamidol 2020- No [id number] 120mL 120 mL, Univers (ISOVUE 02-28 Intravenou ity o f 370-500 mL) 21:51: 21:51 s, ONCE, 1 [place] injection 00 :00 dose, Mon Medic al 120 mL 02/28/21 at Branch 1700, Routine ondansetron 2020- No 4mg 4 mg, Slow Univers (ZOFRAN 02-02 IV Push, ity of (PF)) 01:15: 00:15 ONCE, 1 [place] injection 4 00 :00 dose, Tue Med ical mg 02/01/21 at Branch 2015, MERI NaCl 0.9% 2020- No 1000mL at 999 Uni vers (NS) bolus 02-02- mL/hr, ity of infusion 00:15: 01:09 1,000 mL, [place] 1,000 mL 00 :00 IV Medical Infusion, [place] ONCE, 1 dose, 02/01/21 at 1915, MERI ondansetron 2020-0 Yes [id number] 4mg Take 1 Univers (ZOFRAN -08 tablet by ity of ODT) 4 mg 00:00: mouth [place] disintegrat 00 every 8 Medic al ing tablet (eight) Branch hours as needed for Nausea and Vomiting (N/V). ondansetron 2020- No [id number] 4mg Take 1 Univers (ZOFRAN 02-01-08 tablet by ity of ODT) 4 mg 00:00: 00:00 mouth [place] disintegrat 00 :00 every 8 Medic al ing tablet (eight) Branch hours as needed for Nausea and Vomiting (N/V). methylPREDN 2020-0 Yes [id number] Take by Univers ISolone 5-25 mouth ity of (MEDROL, 00:00: SEE-INSTRU [place] SAMUEL,) 4 mg 00 CTIONS. Medica l tablets follow Branch package directions polymyxin B 2020-0 Yes [id number] 1[drp] Place 1 Univers sulf-trimet 5-25 Drop in ity o f hoprim 00:00: right eye [place] 10,000 00 every 4 Medical unit- 1 (four) Branch mg/mL hours. ophthalmic drops methylPREDN 2020-0 Yes [id number] Take by Univers ISolone 5-25 mouth ity of (MEDROL, 00:00: SEE-INSTRU [place] SAMUEL,) 4 mg 00 CTIONS. Medica l tablets follow Branch package directions polymyxin B 2020-0 Yes [id number] 1[drp] Place 1 Univers sulf-trimet 5-25 Drop in ity o f hoprim 00:00: right eye [place] 10,000 00 every 4 Medical unit- 1 (four) Branch mg/mL hours. ophthalmic drops polymyxin B 2020-0 Yes [id number] 1[drp] Place 1 Univers sulf-trimet 5-25 Drop in ity o f hoprim 00:00: right eye [place] 10,000 00 every 4 Medical unit- 1 (four) Branch mg/mL hours. ophthalmic drops polymyxin B 2020-0 Yes [id number] 1[drp] Place 1 Univers sulf-trimet 5-25 Drop in ity o f hoprim 00:00: right eye [place] 10,000 00 every 4 Medical unit- 1 (four) Branch mg/mL hours. ophthalmic drops polymyxin B 2020-0 Yes [id number] 1[drp] Place 1 Univers sulf-trimet 5-25 Drop in ity o f hoprim 00:00: right eye [place] 10,000 00 every 4 Medical unit- 1 (four) Branch mg/mL hours. ophthalmic drops polymyxin B 2020-0 Yes [id number] 1[drp] Place 1 Univers sulf-trimet 5-25 Drop in ity o f hoprim 00:00: right eye [place] 10,000 00 every 4 Medical unit- 1 (four) Branch mg/mL hours. ophthalmic drops polymyxin B 2021-0 Yes [id number] 1[drp] Place 1 Univers sulf-trimet 5-25 Drop in ity o f hoprim 00:00: right eye [place] 10,000 00 every 4 Medical unit- 1 (four) Branch mg/mL hours. ophthalmic drops polymyxin B 2020-0 Yes [id number] 1[drp] Place 1 Univers sulf-trimet 5-25 Drop in ity o f hoprim 00:00: right eye [place] 10,000 00 every 4 Medical unit- 1 (four) Branch mg/mL hours. ophthalmic drops polymyxin B 2020-0 Yes [id number] 1[drp] Place 1 Univers sulf-trimet 5-25 Drop in ity o f hoprim 00:00: right eye [place] 10,000 00 every 4 Medical unit- 1 (four) Branch mg/mL hours. ophthalmic drops polymyxin B 2020-0 Yes [id number] 1[drp] Place 1 Univers sulf-trimet 5-25 Drop in ity o f hoprim 00:00: right eye [place] 10,000 00 every 4 Medical unit- 1 (four) Branch mg/mL hours. ophthalmic drops polymyxin B 2020-0 Yes [id number] 1[drp] Place 1 Univers sulf-trimet 5-25 Drop in ity o f hoprim 00:00: right eye [place] 10,000 00 every 4 Medical unit- 1 (four) Branch mg/mL hours. ophthalmic drops polymyxin B 2020- Yes [id number] 1[drp] Place 1 Univers sulf-trimet 5-25 Drop in ity o f hoprim 00:00: right eye [place] 10,000 00 every 4 Medical unit- 1 (four) Branch mg/mL hours. ophthalmic drops polymyxin B 2020-0 Yes [id number] 1[drp] Place 1 Univers sulf-trimet 5-25 Drop in ity o f hoprim 00:00: right eye [place] 10,000 00 every 4 Medical unit- 1 (four) Branch mg/mL hours. ophthalmic drops methylPREDN 2020- No [id number] Take by Univers ISolone 5-25 07-08 mouth ity of (MEDROL, 00:00: 00:00 [place]INSTRU [place] SAM[place]EL,) 4 mg 00 :00 CTIONS. Medica l tablets follow Branch package directions clindamycin 2020- No [id number] 300mg Take 2 Univers 150 mg 5-25 06-02 capsules ity of capsule 00:00: 04:59 by mouth 4 [place] 00 :00 (four) Medical times Branch daily for 7 days. olopatadine 2019-08 2020- No [id number] 1[drp] Place 1 Univers (PATANOL) 09-01 Drop in ity of 0.1 % 00:00: 05:59 both eyes [place] ophthalmic 00 :00 2 (two) Medica l solution times Branch daily for 30 days. levocetiriz 2019-08- No [id number] 5mg Take 1 Univers ine 5 mg 09-01 tablet by ity o f tablet 00:00: 05:59 mouth [place] 00 :00 every Medical evening Branch for 30 days. fluticasone 2019-08- No [id number] 2{spray Use 2 Univers propionate 09-01 } Sprays in ity of 50 00:00: 05:59 each [place] mcg/actuati 00 :00 nostril Medic al on nasal daily for Branch spray 30 days. ALBUTEROL 2019-0 Yes 2{puff} Inhale 2 U nivers INHALE 6-17 Puffs as ity of 14:17: needed for [place] [address] Other Medical (Wheezing) Branch . ALBUTEROL 2019-0 Yes 2{puff} Inhale 2 U nivers INHALE 6-17 Puffs as ity of 14:17: needed for [place] [address] Other Medical (Wheezing) Branch . ALBUTEROL 2019-0 Yes 2{puff} Inhale 2 U nivers INHALE 6-17 Puffs as ity of 14:17: needed for [place] [address] Other Medical (Wheezing) Branch . ALBUTEROL 2020-0 Yes 2{puff} Inhale 2 U nivers INHALE 6-17 Puffs as ity of 14:17: needed for [place] [address] Other Medical (Wheezing) Branch . ALBUTEROL 2020-0 Yes 2{puff} Inhale 2 U nivers INHALE 6-17 Puffs as ity of 14:17: needed for [place] [address] Other Medical (Wheezing) Branch . albuterol 2019- 2020- No [id number] 2{puff} Inhale 2 Univers 90 6-17 07-18 Puffs ity of mcg/actuati 00:00: 04:59 every 6 [place] on inhaler 00 :00 (six) Medical hours as Branch needed for Wheezing or Shortness of Breath for up to 30 days. benzonatate 0 2020- No [id number] 200mg Take 1 Univers 200 mg 6-17 06-28 capsule by ity of capsule 00:00: 04:59 mouth 3 [place] 00 :00 (three) Medical times Branch daily as needed for Cough for up to 10 days. omeprazole 2015-0 Yes 40mg Take 1 Unive rs (PRILOSEC) 7-11 capsule by ity of 40 mg 00:00: mouth [place] capsule 00 daily. Medical Branch omeprazole 0 Yes 40mg Take 1 Unive rs (PRILOSEC) 7-11 capsule by ity of 40 mg 00:00: mouth [place] capsule 00 daily. Medical Branch omeprazole 0 Yes 40mg Take 1 Unive rs (PRILOSEC) 7-11 capsule by ity of 40 mg 00:00: mouth [place] capsule 00 daily. Medical Branch omeprazole 0 Yes 40mg Take 1 Unive rs (PRILOSEC) 7-11 capsule by ity of 40 mg 00:00: mouth [place] capsule 00 daily. Medical Branch omeprazole 0 Yes 40mg Take 1 Unive rs (PRILOSEC) 7-11 capsule by ity of 40 mg 00:00: mouth [place] capsule 00 daily. Medical Branch omeprazole 0 Yes 40mg Take 1 Unive rs (PRILOSEC) 7-11 capsule by ity of 40 mg 00:00: mouth [place] capsule 00 daily. Medical Branch omeprazole 0 Yes 40mg Take 1 Unive rs (PRILOSEC) 7-11 capsule by ity of 40 mg 00:00: mouth [place] capsule 00 daily. Medical Branch omeprazole 0 Yes 40mg Take 1 Unive rs (PRILOSEC) 7-11 capsule by ity of 40 mg 00:00: mouth [place] capsule 00 daily. Medical Branch omeprazole 2015-0 Yes 40mg Take 1 Unive rs (PRILOSEC) 7-11 capsule by ity of 40 mg 00:00: mouth [place] capsule 00 daily. Medical Branch omeprazole 0 Yes 40mg Take 1 Unive rs (PRILOSEC) 7-11 capsule by ity of 40 mg 00:00: mouth [place] capsule 00 daily. Medical Branch omeprazole 2015-0 Yes 40mg Take 1 Unive rs (PRILOSEC) 7-11 capsule by ity of 40 mg 00:00: mouth [place] capsule 00 daily. Medical Branch omeprazole 2016-0 Yes 40mg Take 1 Unive rs (PRILOSEC) 7-11 capsule by ity of 40 mg 00:00: mouth [place] capsule 00 daily. Medical Branch omeprazole [id number] Yes 40mg Take 1 Unive rs (PRILOSEC) 7-11 capsule by ity of 40 mg 00:00: mouth [place] capsule 00 daily. Medical Branch omeprazole 0 Yes 40mg Take 1 Unive rs (PRILOSEC) 7-11 capsule by ity of 40 mg 00:00: mouth [place] capsule 00 daily. Medical Branch omeprazole 0 Yes 40mg Take 1 Unive rs (PRILOSEC) 7-11 capsule by ity of 40 mg 00:00: mouth [place] capsule 00 daily. Medical Branch omeprazole 0 Yes 40mg Take 1 Unive rs (PRILOSEC) 7-11 capsule by ity of 40 mg 00:00: mouth [place] capsule 00 daily. Medical Branch traMADOL 0 Yes 50mg Take 1 Univers (ULTRAM) 50 7-03 tablet by ity of mg tablet 00:00: mouth [place] 00 every 6 Medical (six) Branch hours as needed for Pain (scale 4-6). Miguel Johansen PA-C / Nicolás Kellogg MD VIVIANA# [id number] DPS# [id number] x Lic.# [id number] NPI# [id number] traMADOL 2016-0 Yes 50mg Take 1 Univers (ULTRAM) 50 7-03 tablet by ity of mg tablet 00:00: mouth [place] 00 every 6 Medical (six) Branch hours as needed for Pain (scale 4-6). Miguel Johansen PA-C / Nicolás Kellogg MD VIVIANA# [id number] DPS# [id number] x Lic.# [id number] NPI# [id number] traMADOL 2016-0 Yes 50mg Take 1 Univers (ULTRAM) 50 7-03 tablet by ity of mg tablet 00:00: mouth [place] 00 every 6 Medical (six) Branch hours as needed for Pain (scale 4-6). Miguel Johansen PA-C / Nicolás Kellogg MD VIVIANA# [id number] DPS# [id number] x Lic.# [id number] NPI# [id number] traMADOL 2016-0 Yes 50mg Take 1 Univers (ULTRAM) 50 7-03 tablet by ity of mg tablet 00:00: mouth [place] 00 every 6 Medical (six) Branch hours as needed for Pain (scale 4-6). Miguel Johansen PA-C / Nicolás Kellogg MD VIVIANA# [id number] DPS# [id number] x Lic.# [id number] NPI# [id number] traMADOL 2016-0 Yes 50mg Take 1 Univers (ULTRAM) 50 7-03 tablet by ity of mg tablet 00:00: mouth [place] 00 every 6 Medical (six) Branch hours as needed for Pain (scale 4-6). Miguel Johansen PA-C / Nicolás Kellogg MD VIVIANA# [id number] DPS# [id number] x Lic.# [id number] NPI# [id number] traMADOL 2016-0 Yes 50mg Take 1 Univers (ULTRAM) 50 7-03 tablet by ity of mg tablet 00:00: mouth [place] 00 every 6 Medical (six) Branch hours as needed for Pain (scale 4-6). Miguel Johansen PA-C / Nicolás Kellogg MD VIVIANA# [id number] DPS# [id number] x Lic.# [id number] NPI# [id number] traMADOL 2016-0 Yes 50mg Take 1 Univers (ULTRAM) 50 7-03 tablet by ity of mg tablet 00:00: mouth [place] 00 every 6 Medical (six) Branch hours as needed for Pain (scale 4-6). Miguel Johansen PA-C / Nicolás Kellogg MD VIVIANA# [id number] DPS# [id number] x Lic.# [id number] NPI# [id number] traMADOL 2016-0 Yes 50mg Take 1 Univers (ULTRAM) 50 7-03 tablet by ity of mg tablet 00:00: mouth [place] 00 every 6 Medical (six) Branch hours as needed for Pain (scale 4-6). Miguel Johansen PA-C / Nicolás Kellogg MD VIVIANA# [id number] DPS# [id number] x Lic.# [id number] NPI# [id number] traMADOL 2016-0 Yes 50mg Take 1 Univers (ULTRAM) 50 7-03 tablet by ity of mg tablet 00:00: mouth [place] 00 every 6 Medical (six) Branch hours as needed for Pain (scale 4-6). Miguel Johansen PA-C / Nicolás Kellogg MD VIVIANA# [id number] DPS# [id number] x Lic.# [id number] NPI# [id number] traMADOL 2016-0 Yes 50mg Take 1 Univers (ULTRAM) 50 7-03 tablet by ity of mg tablet 00:00: mouth [place] 00 every 6 Medical (six) Branch hours as needed for Pain (scale 4-6). Miguel Johansen PA-C / Nicolás Kellogg MD VIVIANA# [id number] DPS# [id number] x Lic.# [id number] NPI# [id number] traMADOL 2016-0 Yes 50mg Take 1 Univers (ULTRAM) 50 7-03 tablet by ity of mg tablet 00:00: mouth [place] 00 every 6 Medical (six) Branch hours as needed for Pain (scale 4-6). Miguel Johansen PA-C / Nicolás Kellogg MD VIVIANA# [id number] DPS# [id number] x Lic.# [id number] NPI# [id number] traMADOL 2016-0 Yes 50mg Take 1 Univers (ULTRAM) 50 7-03 tablet by ity of mg tablet 00:00: mouth [place] 00 every 6 Medical (six) Branch hours as needed for Pain (scale 4-6). Nicolás Zelaya PA-C, MD VIVIANA# [id number] DPS# [id number] x Lic.# [id number] NPI# [id number] traMADOL 2016-0 Yes 50mg Take 1 Univers (ULTRAM) 50 7-03 tablet by ity of mg tablet 00:00: mouth [place] 00 every 6 Medical (six) Branch hours as needed for Pain (scale 4-6). Miguel Johansen PA-C / Nicolás Kellogg MD VIVIANA# [id number] DPS# [id number] x Lic.# [id number] NPI# [id number] traMADOL 2016-0 Yes 50mg Take 1 Univers (ULTRAM) 50 7-03 tablet by ity of mg tablet 00:00: mouth [place] 00 every 6 Medical (six) Branch hours as needed for Pain (scale 4-6). Miguel Johansen PA-C / Nicolás Kellogg MD VIVIANA# [id number] DPS# [id number] x Lic.# [id number] NPI# [id number] traMADOL 2016-0 Yes 50mg Take 1 Univers (ULTRAM) 50 7-03 tablet by ity of mg tablet 00:00: mouth [place] 00 every 6 Medical (six) Branch hours as needed for Pain (scale 4-6). iMguel Johansen PA-C / Nicolás Kellogg MD VIVIANA# [id number] DPS# [id number] x Lic.# [id number] NPI# [id number] traMADOL 2016-0 Yes 50mg Take 1 Univers (ULTRAM) 50 7-03 tablet by ity of mg tablet 00:00: mouth [place] 00 every 6 Medical (six) Branch hours as needed for Pain (scale 4-6). Miguel Johansen PA-C / Nicolás Kellogg MD VIVIANA# [id number] DPS# [id number] x Lic.# [id number] NPI# [id number] Vital Signs Vital Name Observation Time Observation Value Comments Source Systolic blood 2021-03-10 130 mm[Hg] University of pressure 14:31:00 [facility] [place] [facility] Diastolic blood 2021-03-10 88 mm[Hg] [place] o pressure 14:31:00 [place] [facility] Heart rate 2021-03-10 80 /min University 14:31:00 [facility] Body temperature 2021-03-10 36.78 Tami [facility] 14:31:00 [facility] Respiratory rate 2021-03-10 20 /min University 14:31:00 [facility] Body height 2021-03-10 167.6 cm University 14:31:00 [facility] Body weight 2021-03-10 128.549 kg University 14:31:00 [facility] BMI 2021-03-10 45.74 kg/m2 [facility] 14:31:00 [facility] Oxygen saturation 2021-03-10 98 /min [facility] Arterial blood 14:31:00 [facility] by Pulse oximetry Branch Systolic blood 2021-03-03 132 mm[Hg] University of pressure 17:20:00 [facility] Diastolic blood 2021-03-03 94 mm[Hg] University o f pressure 17:20:00 [facility] Heart rate 2021-03-03 73 /min University of 17:20:00 [facility] Body temperature 2021-03-03 36.17 Tami University of 17:20:00 [facility] Respiratory rate 2021-03-03 20 /min University of 17:20:00 [facility] Oxygen saturation 2021-03-03 95 /min University of in Arterial blood 17:20:00 [facility] by Pulse oximetry Branch Body height 2021-03-01 170 cm University of 02:44:00 [facility] Body weight 2021-03-01 127 kg University of 02:44:00 [facility] BMI 2021-03-01 43.94 kg/m2 University of 02:44:00 [facility] Systolic blood 2021-02-02 137 mm[Hg] University of pressure 00:20:00 [facility] Diastolic blood 2021-02-02 84 mm[Hg] University o f pressure 00:20:00 [facility] Heart rate 2021-02-02 80 /min University of 00:20:00 [facility] Respiratory rate 2021-02-02 16 /min University of 00:20:00 [facility] Oxygen saturation 2021-02-02 97 /min [place] of in Arterial blood 00:20:00 [facility] by Pulse oximetry [place] Body temperature 2021-02-01 37.28 Tami University of 23:52:00 [facility] Body height 2021-02-01 172.7 cm University of 23:52:00 [facility] Body weight 2021-02-01 120.203 kg University of 23:52:00 [facility] BMI 2021-02-01 40.29 kg/m2 University of 23:52:00 [facility] Systolic blood 2021-01-18 184 mm[Hg] Just got done University o f pressure 14:52:00 drinking a [facility] Diastolic blood 2021-01-18 103 mm[Hg] Just got done University of pressure 14:52:00 drinking a [facility] Heart rate 2021-01-18 71 /min University of 14:52:00 [facility] Body temperature 2021-01-18 36.78 Tami University of 14:52:00 [facility] Respiratory rate 2021-01-18 18 /min University of 14:52:00 [facility] Body weight 2021-01-18 124.739 kg University of 14:52:00 [facility] BMI 2021-01-18 43.07 kg/m2 University of 14:52:00 [facility] Oxygen saturation 2021-01-18 100 /min University of in Arterial blood 14:52:00 [facility] Systolic blood 2020-07-02 140 mm[Hg] University of pressure 14:31:00 [facility] Diastolic blood 2020-07-02 99 mm[Hg] University o f pressure 14:31:00 [facility] Heart rate 2020-07-02 66 /min University of 14:29:00 [facility] Body temperature 2020-07-02 36.83 Tami University of 14:29:00 [facility] Respiratory rate 2020-07-02 18 /min University of 14:29:00 [facility] Body height 2020-07-02 170.2 cm University of 14:29:00 [facility] Body weight 2020-07-02 124.739 kg University of 14:29:00 [facility] BMI 2020-07-02 43.07 kg/m2 University of 14:29:00 [facility] Oxygen saturation 2020-07-02 97 /min University of in Arterial blood 14:29:00 [place] [facility] Systolic blood 2020-07-02 140 mm[Hg] University of pressure 14:31:00 [facility] Diastolic blood 2020-07-02 99 mm[Hg] University o f pressure 14:31:00 [facility] Heart rate 2020-07-02 66 /min University of 14:29:00 [facility] Body temperature 2020-07-02 36.83 Tami University of 14:29:00 [facility] Respiratory rate 2020-07-02 18 /min University of 14:29:00 [facility] Body height 2020-07-02 170.2 cm University of 14:29:00 [facility] Body weight 2020-07-02 124.739 kg University of 14:29:00 [facility] BMI 2020-07-02 43.07 kg/m2 University of 14:29:00 [facility] Oxygen saturation 2020-07-02 97 /min University of in Arterial blood 14:29:00 [place] [facility] Systolic blood 2020-02-11 131 mm[Hg] University of pressure 14:15:00 [facility] Diastolic blood 2020-02-11 85 mm[Hg] University o f pressure 14:15:00 [facility] Heart rate 2020-02-11 73 /min University of 14:15:00 [facility] Body temperature 2020-02-11 37.17 Tami University of 14:15:00 [facility] Respiratory rate 2020-02-11 20 /min University of 14:15:00 [facility] Body height 2020-02-11 170.2 cm University of 14:15:00 [facility] Body weight 2020-02-11 120.203 kg University of 14:15:00 [facility] BMI 2020-02-11 41.50 kg/m2 University of 14:15:00 [facility] Oxygen saturation 2020-02-11 96 /min University of in Arterial blood 14:15:00 [facility]ison by Pulse oximetry Branch Systolic blood 2020-02-11 131 mm[Hg] University of pressure 14:15:00 [facility] Diastolic blood 2020-02-11 85 mm[Hg] University o f pressure 14:15:00 [facility] Heart rate 2020-02-11 73 /min University of 14:15:00 [facility] Body temperature 2020-02-11 37.17 Tami University of 14:15:00 [facility] Respiratory rate 2020-02-11 20 /min University of 14:15:00 [facility] Body height 2020-02-11 170.2 cm University of 14:15:00 [facility] Body weight 2020-02-11 120.203 kg University of 14:15:00 [facility] BMI 2020-02-11 41.50 kg/m2 University of 14:15:00 [facility] Oxygen saturation 2020-02-11 96 /min University of in Arterial blood 14:15:00 [facility] Pulse oximetry Branch Procedures Procedure Date / Time Performing Clinician Source Performed WORKERS COMPENSATION 2021-03-10 05:01:00 Doctor Unassigned, [facility] [place] [facility] BASIC METABOLIC PANEL 2021-03-03 08:44:00 Pamela Lindsey [facility] (NA, K, CL, CO2, GLUCOSE, Medica l Branch BUN, CREATININE, CA) CBC WITH DIFF 2021-03-03 08:44:00 Pamela Lindsey [place] o [facility] COMP. METABOLIC PANEL 2021-03-02 08:30:00 Pamela Lindsey [facility] ([id number]) Medical [place] CBC WITH DIFF 2021-03-02 08:30:00 Conchita Lindseyherine [facility] FECES CULTURE 2021-03-01 19:10:00 Suki [facility] OCCULT (GUAIAC) BLOOD 2021-03-01 19:10:00 Suki [facility] FECAL LEUKOCYTES 2021-03-01 19:10:00 Suki [facility] LIPID PANEL ([id number])(TOTAL 2021-03-01 07:28:00 Shayan [facility] CHOLESTEROL, [facility] TRIGLYCERIDES, HDL) GLYCOSYLATED HEMOGLOBIN 2021-03-01 07:28:00 Shayan [facility] (A1C) [facility] HEPATITIS B SURFACE 2021-03-01 07:28:00 [facility] ANT[facility]ODY [facility] HEPATITIS B SURFACE 2021-03-01 07:28:00 [facility] ANTIGEN [facility] HCV ANTIBODY 2021-03-01 07:28:00 Shayan [facility] HAV ANTIBODY (IGG AND 2021-03-01 07:28:00 [facility] IGM) [facility] HEPATIC FUNCTION PANEL 2021-03-01 07:03:00 [facility] ([id number] (ALB,T.PRO,BILI Medical Branch T,BU/BC,ALT,AST,ALK PHOS) BASIC METABOLIC PANEL 2021-03-01 07:03:00 Shayan [facility] (NA, K, CL, CO2, GLUCOSE, Medica l Branch BUN, CREATININE, CA) CBC WITH DIFF 2021-03-01 07:03:00 Shayan [facility] PROTHROMBIN TIME / INR 2021-03-01 07:03:00 [facility] 2021-03-01 07:03:00 Shayan [facility] THRMPLAS PENNY Medical Branch COVID-19 (ID NOW RAPID 2021-02-28 23:45:00 Campos Bermudez [facility] TESTING) Medical Branch LAB ONLY COVID 2021-02-28 23:45:00 Campos Bermudez [facility] INTERPRETATION [facility] CT ABDOMEN PELVIS W 2021-02-28 21:59:05 Campos Bermudez [facility] CONTRAST Medical Branch CBC WITH DIFF 2021-02-28 21:23:00 Campos Bermudez [facility] URINALYSIS 2021-02-28 21:23:00 Aidan Campos [facility] LIPASE 2021-02-28 21:22:00 Aidan [facility] HEPATIC FUNCTION PANEL 2021-02-28 21:22:00 Campos Bermudez [facility] ([id number]) (ALB,T.PRO,BILI Medical Branch T,BU/BC,ALT,AST,ALK PHOS) BASIC METABOLIC PANEL 2021-02-28 21:22:00 Campos Bermudez [facility] (NA, K, CL, CO2, GLUCOSE, Medica l Branch BUN, CREATININE, CA) CONSENT/REFUSAL FOR 2021-02-28 20:18:27 Doctor Dane [facility] DIAGNOSIS AND TREATMENT [place] [facility] LIPASE 2021-02-02 00:14:00 Brenda Cristobal [facility] MAGNESIUM 2021-02-02 00:14:00 Brenda Cristobal [facility] COMP. METABOLIC PANEL 2021-02-02 00:14:00 Brenda Cristobal [facility] ([id number]) Medical Branch CBC WITH DIFF 2021-02-02 00:14:00 Brenda Cristobal [facility] CONSENT/REFUSAL FOR 2021-02-01 23:47:04 Doctor Dane [facility] DIAGNOSIS AND TREATMENT [place] [facility] CONSENT/REFUSAL FOR 2021-01-18 14:48:47 Doctor Dane [facility] DIAGNOSIS AND TREATMENT [place] [facility] Encounters Start End Encounter Admission Attending Care Care Encounter Source Date/Time Date/Time Type Type Clinicians Facility Department ID 2021-06-27 Outpatient EVERARDO [facility] [id number] Univers 10:31:32 HAWA itstar [facility] 2021-06-27 Emergency [facility] [id number] Univers 06:04:08 ity of [facility] 2021-06-26 Emergency [facility] [id number] Univers 23:59:53 ity of [facility] 2021-06-26 Emergency [facility] [id number] Univers 21:06:42 ity [facility] 2021-05-02 2021-05-02 Telephone RANULFO Hughes [id number] Univers 00:00:00 00:00:00 Radha RAMIREZ [id number] i ty of [facility] 4.2.7.2.686 Aron as [phone] [address] 2021-05-01 2021-05-01 Laboratory Only, Ang Db Test [facility] 1.2.8 40.114 [id number] Univers 19:42:58 19:52:58 Only Enrique Thorne [facility] [id number] ity [facility] 4.2.7.2.686 Aron as Cassius?Blea [phone] [address] Medical Office Building 2021-05-01 2021-05-01 Outpatient [facility] [id number] Univers 19:40:00 19:40:00 [id number] [facility] 2021-05-01 2021-05-01 [facility] [id number] Univers 19:40:00 19:40:00 ENRIQUE [facility] 2021-04-15 2021-04-15 Outpatient [facility] [id number] Univers 08:30:00 08:30:00 [id number] [facility] 2021-04-15 2021-04-15 Outpatient R [facility] [id number] Univers 08:30:00 08:30:00 HAWA star [facility] 2021-04-15 2021-04-15 Telephone Everardo [facility] 1.2.840.114 [id number] Univers 00:00:00 00:00:00 Hawa Sharpe 350.1.13.10 i [place] [phone] Ms dical nal [address] [facility] 2021-03-14 2021-03-14 Prep For [facility] 1.2.840.114 [id number] Univers 00:00:00 00:00:00 Surgery Peg [place] [id number] [place]y [place] [phone] Ms dical nal [address] [facility] 2021-03-10 2021-03-10 Office [facility] [id number] Univers 08:49:19 09:34:06 Visit Hawa Sharpe 350.1.13.10 i [place] [phone] [facility] [address] [facility] 2021-03-10 2021-03-10 Outpatient [facility] [id number] Univers 08:30:00 08:30:00 HAWA [id number] [facility] 2021-03-10 2021-03-10 Outpatient R [facility] [id number] Univers 08:30:00 08:30:00 HAWA [facility] 2021-03-10 2021-03-10 Orders Doctor RANULFO 1.2.840.114 [id number] Univers 00:00:00 00:00:00 Only Unassigned, ASHLEY 350.1.13.10 ity of [place] [facility] 4.2.7.2.686 Aron as [phone] [address] 2021-03-07 2021-03-07 Telephone [facility] 1.2.840.114 [id number] Univers 00:00:00 00:00:00 Hawa Sharpe 350.1.13.10 i [place] [phone] Ms dical nal [address] [facility] 2021-03-04 2021-03-04 Transition Amy Villafana 1.2.840.114 [id number] Univers 00:00:00 00:00:00 of Care Marisel Cabreray 350.1.13.10 i ty of [place] 4.2.7.2.686 [place] [id number] [facility] 403 Branch 2021-02-28 2021-03-03 Hospital Campos Bermudez [facility] 1.2.840.1 [id number] Univers 15:32:00 15:20:00 Encounter Chris Downey 350.1.13.10 ity of JuanalexaMonty [place] 4.2.7.2.[address] [facility] [id number] [facility] 081 Branch 2021-02-01 2021-02-01 [facility] [id number] Univers 18:54:00 20:11:00 Brenda Sharpe 350.1.13.10 i ty of [place] 4.2.7.2.686 [facility] [id number] [facility] 084 [place] 2021-01-18 2021-01-18 Emergency Singer [facility] [id number] Univers 09:51:00 10:57:00 Corona Sharpe 350.1.13.10 i ty of [place] 4.2.7.2.686 [facility] [phone] [place] [id number] [place] 2021-01-18 2021-01-18 Orders Doctor RANULFO 1.2.840.114 [id number] Univers 00:00:00 00:00:00 Only Unassigned, ASHLEY 350.1.13.10 ity of [place] [facility] 4.2.7.2.686 Aron as [phone] [facility] 009 Branch 2020-07-02 2020-07-02 Urgent Provider, [facility] 1.2.840.114 [id number] Univers 08:10:50 08:30:50 Care Brenda Hill 350.1.13.10 ity of [place] 4.2.7.2.686 Aron as Mel [phone] [facility] 044 Branch Office Building One 2020-07-02 2020-07-02 Urgent Provider, [facility] [id number] 08:10:50 08:30:50 Care [facility] 350.1.13.10 Care [place] 4.2.7.2.686 Professio [phone] [place] [address] Office [address] 2020-07-02 2020-07-02 Outpatient R [facility] [id number] Univers 08:00:00 08:00:00 [id number] [facility] 2020-07-02 2020-07-02 Outpatient [facility] [id number] Univers 08:00:00 08:00:00 BRENDA [facility] 2020-02-11 2020-02-11 Urgent Pob1, Acute Care Clinic [facility] 1. 2.840.114 [id number] Univers 09:04:57 09:42:48 [facility] 350.1.13.10 [facility] 4.2.7.2.686 Aron as Professio [phone] Ms dical [address] Office [facility] 2020-02-11 2020-02-11 Urgent Pob1, Acute [facility] 1.2.840.114 [id number] 09:04:57 09:42:48 [facility] 350.1.13.10 [place] 4.2.7.2.686 Professio [phone] [place] [address] Office [facility] 2020-02-11 2020-02-11 Outpatient R [facility] [id number] Univers 09:00:00 09:00:00 JAIMEE [facility] Results Test Description Test Time Test Comments Results Result Comments Source BASIC METABOLIC PANEL (NA, K, CL, CO2, GLUCOSE, BUN, 2021-02 12:00:45 CREATININE, CA) Test Item Value Reference Range Interpretation Comme nts NA (test code = 0809465567) 137 mmol/L 135-145 K (test code = 3215131103) 4.0 mmol/L 3.5-5.0 CL (test code = 5505578179) 105 mmol/L 98-108 CO2 TOTAL (test code = 29 mmol/L 23-31 9590605378) AGAP (test code = 9181788749) 2-16 BUN (test code = 7046483934) 13 mg/dL 7-23 GLUCOSE (test code = 8939337155) 95 mg/dL 70-110 CREATININE (test code = 0.74 mg/dL 0.60-1.25 9917638346) CALCIUM (test code = 8940834845) 9.2 mg/dL 8.6-10.6 eGFR (test code = 8894610571) mL/min/1.73m2 MERVAT (test code = MERVAT) Association of Glomerular Filtration Rate (GFR) and Staging of Kidney Disease* + +--------- + ----+| GFR (mL/min/1.73 m2) ?| With Kidney Damage ?| ?Without Kidney Damage+ +--- + +| ?>90 ?| ?Stage one ?| ? Normal ?+ +-------- + -----+| ?60-89 ?| ?Stage two ?| ? Decreased GFR ? + +--------- + ----+| ?30-59 ?| ?Stage three ?| ? Stage three ? + +--------- + ----+| ?15-29 ?| ?Stage four ? | ? Stage four ?+ +-------- + -----+| ?<15 (or dialysis) ? ?| ?Stage five ? | ? Stage five ?+ +-------- + -----+ *Each stage assumes the associated GFR level has been in effect for at least three months. ?Stages 1 to 5, with or without kidney disease, indicate chronic kidney disease. Notes: Determination of stages one and two (with eGFR >59mL/min/1.73 m2) requires estimation of kidney damage for at least three months as defined by structural or functional abnormalities of the kidney, manifested by either:Pathological abnormalities or Markers of kidney damage (including abnormalities in the composition of the blood or urine or abnormalities in imaging tests). [facility] WITH [id number] 11:43:23 Test Item Value Reference Range Interpretation Comments WBC (test code = See_Comment H [Automated 0154-2) message] The system which generated this result transmit lien reference range : 4.20 - 10.70 10*3/?L. The reference range was not used to interpret this result as normal/abnormal . RBC (test code = See_Comment [Automated 979-8) message] The system which generated this result transmit lien reference range : 4.26 - 5.52 10*6/?L. The reference range was not used to interpret this result as normal/abnormal . HGB (test code = 13.8 g/dL 12.2-16.4 718-7) HCT (test code = 41.7 % 38.4-49.3 4544-3) MCV (test code = 83.4 fL 81.7-95.6 787-2) MCH (test code = 27.6 pg 26.1-32.7 785-6) MCHC (test code = 33.1 g/dL 31.2-35.0 786-4) RDW-SD (test code = 39.7 fL 38.5-51.6 01270-4) RDW-CV (test code = 13.2 % 12.1-15.4 788-0) PLT (test code = See_Comment [Automated 777-3) message] The system which generated this result transmit lien reference range : 150 - 328 10*3/ ?L. The reference range was not u sed to interpret th is result as normal/abnormal . MPV (test code = 9.8 fL 9.8-13.0 28198-1) NRBC/100 WBC (test See_Comment [Automat ed code = 6529015413) message] The system which generated this result transmit lien reference range : 0.0 - 10.0 /100 WBCs. The reference range was not used to interpret this result as normal/abnormal . NRBC x10^3 (test code <0.01 See_Comment [Auto mated = 4551646789) message] The system which generated this result transmit lien reference range : 10*3/?L. The reference range was not used to interpret this result as normal/abnormal . GRAN MAT (NEUT) % 83.6 % (test code = 770-8) IMM GRAN % (test code 0.60 % = 9180890655) LYMPH % (test code = 10.6 % 736-9) MONO % (test code = 4.9 % 5905-5) EOS % (test code = 0.0 % 713-8) BASO % (test code = 0.3 % 706-2) GRAN MAT x10^3(ANC) 13.34 10*3/uL 1.99-6.95 H (test code = 4124515966) IMM GRAN x10^3 (test 0.10 10*3/uL 0.00-0.06 H code = 8340446194) LYMPH x10^3 (test code 1.69 10*3/uL 1.09-3.23 = 731-0) MONO x10^3 (test code 0.78 10*3/uL 0.36-1.02 = 742-7) EOS x10^3 (test code = <0.03 0.06-0.53 L 711-2) BASO x10^3 (test code 0.04 10*3/uL 0.01-0.09 = 704-7) Lab Interpretation Abnormal (test code = 81327-7) [facility] [id number] 19:22:00 Test Item Value Reference Range Interpretation Comments Occult (guaiac) Blood (test code = Negative Negative 2335-8) Lab Interpretation (test code = Normal 77278-2) [facility] COVID [id number] 15:53:57COVID DMT InterpretationInterpretation/Recommendations:Molecular NAAT Tests for Active Infection with the SARS-CoV-2 Virus:The patient has currently tested negative for the SARS-CoV-2 virus that causesCOVID-19 illness. This most likely indicates that the patient does not have an active infection withthe SARS-CoV-2 virus at this time. However, infection is not completely ruled out as the false negative rate for molecular NAAT testing using a nasopharyngeal sample can be up to 30%, mostly dependent on the timing of sample collection in relation to illness onset and any deficiencies in sampling techniques. If the patient has symptoms concerning for COVID-19 illness, a repeat NAAT test (PCR, Rapid ID Now, etc.) should be performed, at which time the SARS-CoV-2 virus - if present - may have reached a detectable viral load (usually peaking by the end of the first week of symptoms). Tests for IgM and/or IgG Antibodies to the SARS-CoV-2 Virus:Testing for IgM and IgG antibodies approximately 3 weeks after illness onset will likely indicate whether the patient has produced antibodies to the UDDW-SvP-1gkwau. However, some patients may take longer to develop detectable antibodies, while some patients who were infected with SARS-CoV-2 may never develop antibodies. While antibodies to SARS-CoV-2 may provide some degree of immunity, at this time the strength and duration of the antibody response is unknown. Interpretation Result Comments:These interpretation comments are based upon all COVID-19 testing the patient has had at [facility], including molecular NAAT testing (more commonly known as PCR testing and Rapid ID Now testing) andantibody testing. It does not take into account any testing that a patient has had outside of the [facility] medical record. [facility] LABORATORY SERVICESCOVID BenbafjZAZP-ByK-5 NAAT (no units) ? ? Date ? Value ? 07/02/2020 ? Not Detected ? ? ? 02/11/2020 ? Positive (A) ? SARS-CoV-2 Rapid ID NOW (no units) ? ? Date ? Value ? 02/28/2021 ? Not Detected ? [facility]Un[facility] METABOLIC PANEL (62956)2021-03-02 09:26:09 Test Item Value Reference Range Interpretation Comments NA (test code = 136 mmol/L 135-145 8321406479) K (test code = 4.1 mmol/L 3.5-5.0 0818100236) CL (test code = 103 mmol/L 98-108 2859539398) CO2 TOTAL (test code = 27 mmol/L 23-31 9044559776) AGAP (test code = 2-16 9478497227) BUN (test code = 17 mg/dL 7-23 1567039243) GLUCOSE (test code = 128 mg/dL 70-110 H 7993342298) CREATININE (test code = 0.79 mg/dL 0.60-1.25 9983107840) TOTAL BILI (test code = 0.7 mg/dL 0.1-1.3 6586263774) CALCIUM (test code = 9.3 mg/dL 8.6-10.6 0268056285) T PROTEIN (test code = 6.6 g/dL 6.3-8.2 2944184182) ALBUMIN (test code = 3.9 g/dL 3.5-5.0 8942821494) ALK PHOS (test code = 77 U/L 34-122 2132477000) ALTv (test code = 57 U/L 5-50 H 1742-6) AST(SGOT) (test code = 29 U/L 13-40 [id number]) eGFR (test code = mL/min/1.73m2 9859570996) MERVAT (test code = MERVAT) Association of Glomerular Filtration Rate (GFR) and Staging of Kidney Disease* + --+ --+ ------+| GFR (mL/min/1.73 m2) ?| With Kidney Damage ?| ?Without Kidney Damage+ --------+ --------+ +| ?>90 ?| ?Stage one ?| ? Normal ?+ ---+ ---+ -------+| ?60-89 ?| ?Stage two ?| ? Decreased GFR ? + --+ --+ ------+| ?30-59 ?| ?Stage three ?| ? Stage three ? + --+ --+ ------+| ?15-29 ?| ?Stage four ? | ? Stage four ?+ ---+ ---+ -------+| ?<15 (or dialysis) ? ?| ?Stage five ? | ? Stage five ?+ ---+ ---+ -------+ *Each stage assumes the associated GFR level has been in effect for at least three months. ?Stages 1 to 5, with or without kidney disease, indicate chronic kidney disease. Notes: Determination of stages one and two (with eGFR >59mL/min/1.73 m2) requires estimation of kidney damage for at least three months as defined by structural or functional abnormalities of the kidney, manifested by either:Pathological abnormalities or Markers of kidney damage (including abnormalities in the composition of the blood or urine or abnormalities in imaging tests). Lab Interpretation Abnormal (test code = 49643-2) [facility] WITH [id number] 08:46:58 Test Item Value Reference Range Interpretation Comments WBC (test code = See_Comment H [Automated 1790-2) message] The system which generated this result transmit lien reference range : 4.20 - 10.70 10*3/?L. The reference range was not used to interpret this result as normal/abnormal . RBC (test code = See_Comment [Automated 789-8) message] The system which generated this result transmit lien reference range : 4.26 - 5.52 10*6/?L. The reference range was not used to interpret this result as normal/abnormal . HGB (test code = 15.2 g/dL 12.2-16.4 718-7) HCT (test code = 45.4 % 38.4-49.3 4544-3) MCV (test code = 83.0 fL 81.7-95.6 787-2) MCH (test code = 27.8 pg 26.1-32.7 785-6) MCHC (test code = 33.5 g/dL 31.2-35.0 786-4) RDW-SD (test code = 39.4 fL 38.5-51.6 60393-8) RDW-CV (test code = 13.2 % 12.1-15.4 788-0) PLT (test code = See_Comment [Automated 777-3) message] The system which generated this result transmit lien reference range : 150 - 328 10*3/ ?L. The reference range was not u sed to interpret th is result as normal/abnormal . MPV (test code = 9.4 fL 9.8-13.0 L 84261-2) NRBC/100 WBC (test See_Comment [Automat ed code = 9136980675) message] The system which generated this result transmit lien reference range : 0.0 - 10.0 /100 WBCs. The reference range was not used to interpret this result as normal/abnormal . NRBC x10^3 (test code <0.01 See_Comment [Auto mated = 5350291517) message] The system which generated this result transmit lien reference range : 10*3/?L. The reference range was not used to interpret this result as normal/abnormal . GRAN MAT (NEUT) % 83.3 % (test code = 770-8) IMM GRAN % (test code 0.30 % = 3802211739) LYMPH % (test code = 11.0 % 736-9) MONO % (test code = 5.0 % 5905-5) EOS % (test code = 0.1 % 713-8) BASO % (test code = 0.3 % 706-2) GRAN MAT x10^3(ANC) 12.88 10*3/uL 1.99-6.95 H (test code = 0059813642) IMM GRAN x10^3 (test 0.04 10*3/uL 0.00-0.06 code = 3781634497) LYMPH x10^3 (test code 1.70 10*3/uL 1.09-3.23 = 731-0) MONO x10^3 (test code 0.78 10*3/uL 0.36-1.02 = 742-7) EOS x10^3 (test code = <0.03 0.06-0.53 L 711-2) BASO x10^3 (test code 0.05 10*3/uL 0.01-0.09 = 704-7) Lab Interpretation Abnormal (test code = 35670-4) [facility]EC[facility] [id number] 00:37:23 Test Item Value Reference Range Interpretation Comments Fecal Leukocytes (test code = Positive Negative A 9637198856) Lab Interpretation (test code = Abnormal 15522-5) [facility]inteHEPATITIS B SURFACE [id number] 17:59:51 Test Item Value Reference Range Interpretation Comments HBsAB (test code = Negative 7629930412) HBsAb mIU/mL Semi-Quantitative (test code = 2118695563) MERVAT (test code = Interpretation: MERVAT) ?Hepatitis B Surface Antibody ? Negative - Patient is considered to be not immune to infection with HBV. ? ? Positive - Anti-HBs detected at greater than or equal to 12 mIU/mL. ?Patient is considered to be immune to infection with HBV. ? [facility]inteH[facility] ANTIBODY (IGG AND IGM)2021-03-01 17:59:51 Test Item Value Reference Range Interpretation Comments HAV Total (test code = 1991278164) Negative HAVT Semi-Quantitative (test code = 8696722370) [facility]inteHCV [id number] 17:59:50 Test Item Value Reference Range Interpretation Comments HCV Ab (test code = 71009-2) Negative HCV Semi-Quantitative (test code = 74371-0) [facility]AT[facility] SURFACE [id number] 17:43:34 Test Item Value Reference Range Interpretation Comments HBsAg Semi-Quantitative (test code = Negative Negative 5195-3) [facility]inteCBC with [id number] 11:40:35 Test Item Value Reference Range Interpretation Comments WBC (test code = See_Comment H [Automated 4790-2) message] The sy stem which generated this result transmitted reference range : 4.20 - 10.70 10*3/?L. The reference range was not used to interpret this result as normal/abnormal . RBC (test code = See_Comment [Automated 189-8) message] The sy stem which generated this result transmitted reference range : 4.26 - 5.52 10*6/?L. The reference range was not used to interpret this result as normal/abnormal . HGB (test code = 14.4 g/dL 12.2-16.4 718-7) HCT (test code = 42.7 % 38.4-49.3 4544-3) MCV (test code = 82.4 fL 81.7-95.6 787-2) MCH (test code = 27.8 pg 26.1-32.7 785-6) MCHC (test code = 33.7 g/dL 31.2-35.0 786-4) RDW-SD (test code = 38.5 fL 38.5-51.6 92913-9) RDW-CV (test code = 12.9 % 12.1-15.4 788-0) PLT (test code = See_Comment [Automated 777-3) message] The sy stem which generated this result transmitted reference range : 150 - 328 10*3/ ?L. The reference r catalina was not used to interpret this result as normal/abnormal . MPV (test code = 10.2 fL 9.8-13.0 06220-4) IPF % (test code = 2.4 % 1.2-10.7 Platelet count 9818234384) measured by fluorescence method. NRBC/100 WBC (test See_Comment [Automat ed code = 7846674039) message] The system which generated this result transmitted reference range : 0.0 - 10.0 /100 WBCs. The refer ence range was not u sed to interpret th is result as normal/abnormal . NRBC x10^3 (test code <0.01 See_Comment [Auto mated = 6657248334) message] The s ystem which generated this result transmitted reference range : 10*3/?L. The reference range was not used to interpret this result as normal/abnormal . GRAN MAT (NEUT) % 91.2 % (test code = 770-8) IMM GRAN % (test code 0.50 % = 9869068716) LYMPH % (test code = 7.2 % 736-9) MONO % (test code = 0.9 % 5905-5) EOS % (test code = 0.0 % 713-8) BASO % (test code = 0.2 % 706-2) GRAN MAT x10^3(ANC) 13.95 10*3/uL 1.99-6.95 H (test code = 1517265313) IMM GRAN x10^3 (test 0.07 10*3/uL 0.00-0.06 H code = 5827225743) LYMPH x10^3 (test 1.10 10*3/uL 1.09-3.23 code = 731-0) MONO x10^3 (test code 0.14 10*3/uL 0.36-1.02 L = 742-7) EOS x10^3 (test code <0.03 0.06-0.53 L = 711-2) BASO x10^3 (test code 0.03 10*3/uL 0.01-0.09 = 704-7) SLICK (test code = Present See_Comment A [Auto mated 7797-4) message] The sy stem which generated this result transmitted reference range : (none). The reference range was not used to interpret this result as normal/abnormal . Lab Interpretation Abnormal (test code = 45793-8) [facility] PointeLIPID PANEL (90247)(TOTAL CHOLESTEROL, TRIGLYCERIDES, HDL)2021-03-01 10:18:25 Test Item Value Reference Range Interpretation Comments CHOL (test code = 187 mg/dL 120-200 6861983383) HDL (test code = 38 mg/dL >40 L 8706973749) HDLC RATIO (test code = See_Comment [Au tomated message] 8855574327) The system [employer] generated this result transmit lien reference range : <=5.0. The refe rence range was not u sed to interpret th is result as normal/abnormal . TRIG (test code = 91 mg/dL 30-170 6937344740) LDL CHOL (test code = 131 mg/dL See_Comment [Auto mated message] 23846-0) The system [employer] generated this result transmit lien reference range : <=160. The refe rence range was not u sed to interpret th is result as normal/abnormal . VLDL (test code = 18 mg/dL 5-60 4038246415) Lab Interpretation (test Abnormal code = 41254-6) [facility] Metabolic Panel (NA, K, CL, CO2, GLUCOSE, BUN, CREATININE, CA)2021-03-01 10:17:39 Test Item Value Reference Range Interpretation Comments NA (test code = 138 mmol/L 135-145 9864763963) K (test code = 4.2 mmol/L 3.5-5.0 2614090188) CL (test code = 102 mmol/L 98-108 8502793836) CO2 TOTAL (test code = 27 mmol/L 23-31 7321329459) AGAP (test code = 2-16 0039306172) BUN (test code = 15 mg/dL 7-23 9109105356) GLUCOSE (test code = 144 mg/dL 70-110 H 5708055383) CREATININE (test code = 0.66 mg/dL 0.60-1.25 7416378821) CALCIUM (test code = 9.8 mg/dL 8.6-10.6 7603779685) eGFR (test code = mL/min/1.73m2 7955262140) MERVAT (test code = MERVAT) Association of Glomerular Filtration Rate (GFR) and Staging of Kidney Disease* + --+ --+ ------+| GFR (mL/min/1.73 m2) ?| With Kidney Damage ?| ?Without Kidney Damage+ --------+ --------+ +| ?>90 ?| ?Stage one ?| ? Normal ?+ ---+ ---+ -------+| ?60-89 ?| ?Stage two ?| ? Decreased GFR ? + --+ --+ ------+| ?30-59 ?| ?Stage three ?| ? Stage three ? + --+ --+ ------+| ?15-29 ?| ?Stage four ? | ? Stage four ?+ ---+ ---+ -------+| ?<15 (or dialysis) ? ?| ?Stage five ? | ? Stage five ?+ ---+ ---+ -------+ *Each stage assumes the associated GFR level has been in effect for at least three months. ?Stages 1 to 5, with or without kidney disease, indicate chronic kidney disease. Notes: Determination of stages one and two (with eGFR >59mL/min/1.73 m2) requires estimation of kidney damage for at least three months as defined by structural or functional abnormalities of the kidney, manifested by either:Pathological abnormalities or Markers of kidney damage (including abnormalities in the composition of the blood or urine or abnormalities in imaging tests). Lab Interpretation Abnormal (test code = 94532-1) [facility]inteHEPATIC FUNCTION PANEL (98653) (ALB,T.PRO,BILI T,BU/BC,ALT,AST,ALK PHOS)2021-03-01 10:17:38 Test Item Value Reference Range Interpretation Comments TOTAL BILI (test code = 3344819962) 0.6 mg/dL 0.1-1.1 BILI UNCON (test code = 8430909981) 0.4 mg/dL 0.1-1.1 BILI CONJ (test code = 8649991321) 0.0 mg/dL 0.0-0.3 T PROTEIN (test code = 6386331759) 7.5 g/dL 6.3-8.2 ALBUMIN (test code = 2011208803) 4.2 g/dL 3.5-5.0 ALK PHOS (test code = 1062544078) 88 U/L 34-122 ALTv (test code = 1742-6) 76 U/L 5-50 H AST(SGOT) (test code = 8763593590) 41 U/L 13-40 H Lab Interpretation (test code = Abnormal 86468-9) [facility]inteGLYCOSYLATED HEMOGLOBIN (A1C)2021-03-01 09:37:27 Test Item Value Reference Range Interpretation Comments HGB A1C (test code = 5.8 % 4.0-5.7 H 4548-4) MERVAT (test code = MERVAT) Reference RangesNormal: <5.7%Prediabetes: 5.7 - 6.4%Diabetes: > 6.5% Lab Interpretation (test Abnormal code = 74490-4) [facility] PointeaPTT2021-07-06 09:25:53 Test Item Value Reference Range Interpretation Comments APTT Patient (test See_Comment [Automat ed code = 3173-2) message] The system which generated this result transmitted reference range : 23 - 38 Seconds . The reference range was not used to interpr et this result as normal/abnormal . MERVAT (test code = MERVAT) The [facility] patient population mean normal value for aPTT is 30 seconds. Lab Interpretation Normal (test code = 65027-1) [facility] PointeProthrombin Time / [id number] 09:23:36 Test Item Value Reference Range Interpretation Comments PROTIME PATIENT (test See_Comment [Auto mated message] code = 5964-2) The system wh ich generated this result transmitted ref erence range: 12.0 - 1 4.7 Seconds. The re ference range was not u sed to interpret this result as normal/abnor mal. INR (test code = 6301-6) Nor mal INR <1.1; Warfarin Therap eutic range 2.0 to 3. 0 or 2.5 to 3.5, dep ending upon the indica tions. Lab Interpretation (test Normal code = 29924-6) [facility]OVID-[facility] (ID NOW RAPID TESTING)2021-03-01 00:25:13 Test Item Value Reference Range Interpretation Comments SARS-CoV-2 Rapid ID NOW Not Detected Not Detected (test code = 12463-0) MERVAT (test code = MERVAT) ID NOW COVID-19 Assay is an isothermal nucleic acid amplification test intended for the qualitative detection of nucleic acid from SARS-CoV-2 viral RNA in nasopharyngeal ([employer]IL[employer] WORKER) specimens. It is used under Emergency Use Authorization (EUA) by FDA. The limit of detection (LOD) of the assay is 125 Genome Equivalents/mL. A positive result is indicative of the presence of SARS-CoV-2 RNA. ?Clinical correlation with patient history and other diagnostic information is necessary to determine patient infection status. A negative (Not Detected) result does not preclude SARS-CoV-2 infection. In patients with clinical symptoms and other tests that are consistent with SARS-CoV-2 infection, negative results should be treated as presumptive negative and a new specimen should be tested with alternative PCR molecular test. Invalid: Please collect a new specimen for repeat patient testing if clinically indicated. Lab Interpretation Normal (test code = 28512-9) [facility] PointeCT ABDOMEN PELVIS W [id number] 00:23:52 Acute inflammation involving the cecum and extending into the ostium of theappendix. Right lower quadrant mesentery shows fat stranding and prominentreactive lymph nodes. No evidence of perforation orabscess formation. Preliminary Report Dictated by Resident: Mihaela Williamson ?MD. Marlene, have reviewed this study and agree with theabove report.EXAM: CT ABDOMEN AND PELVIS WITH CONTRAST HISTORY: 35 years -old Male with Abdominal distension and pain COMPARISON: None available. TECHNIQUE AND FINDINGS: Contiguous axial imaging was performed from thelung bases to the proximal femurs after the ad ministration of intravenousOmnipaque contrast in the portal venous phase. Coronal and sagittalreconstructions were obtained.Auto mA and/or iterative reconstruction were used to reduce radiation dose. FINDINGS: LOWER THORAX: Minimal dependent atelectasis. The lung bases are otherwiseclear. LIVER: No foc al hepatic lesions. ?Normal contour. No intrahepatic ductaldilatation. The portal veins are patent. GALLBLADDER AND BILIARY TREE: No extrahepatic biliary ductal dilation. ?Nohyperdense stones. No gallbladder wall thickening. SPLEEN: No splenomegaly. PANCREAS: No ductal dilation or masses. ADRENAL GLANDS: No adrenal nodules. KIDNEYS: The kidneys enhance symmetrically. No hydronephrosis, stones, ormasses. PERITONEUM AND RETROPERITONEUM: No free air or fluid. LYMPH NODES: Multiple prominent lymph nodesseen in the right lowerquadrant, along the appendix and cecum, measuring up to 1.0 cm. GI TRACT: Significant mucosal hyperenhancement and submucosal edema seenthroughout the cecum and inferior portion of the ascending colon withsurrounding fat stranding. The inflammatory changes extending to theproximal/ostium of the appendix. Right lower quadrant mesenteric lymphnodes are seen. No evidence of extraluminal free air or fluid collection. PELVIS/BLADDER: The urinary bladder appears normal. VESSELS: Unre markable. BONES AND SOFT TISSUES: No suspicious lytic or sclerotic bony lesions. [facility], Radiant Results Inft User - 02/28/2021 7:24 PM CDT EXAM: CT ABDOMEN AND PELVIS WITH CONTRASTHISTORY: 35 years -old Male with Abdominal distension and painCO MPARISON: None available.TECHNIQUE AND FINDINGS: Contiguous axial imaging was performed from thelungbases to the proximal femurs after the administration of intravenousOmnipaque contrast in the portalvenous phase. Coronal and sagittalreconstructions were obtained.Auto mA and/or iterative reconstruction were used to reduce radiation dose.FINDINGS:LOWER THORAX: Minimal dependent atelectasis. The lungbases are otherwiseclear. LIVER: No focal hepatic lesions. Normal contour. No intrahepatic ductaldilatation. The portal veins are patent.GALLBLADDER AND BILIARY TREE: No extrahepatic biliary ductal dilation. Nohyperdense stones. No gallbladder wall thickening.SPLEEN: No splenomegaly.PANCREAS: No ductal dilation or masses.ADRENAL GLANDS: No adrenal nodules.KIDNEYS: The kidneys enhance symmetrically. No hydronephrosis, stones, ormasses.PERITONEUM AND RETROPERITONEUM: No free air or fluid.LYMPH NODES: M ultiple prominent lymph nodes seen in the right lowerquadrant, along the appendix and cecum, measuring up to 1.0 cm. GI TRACT: Significant mucosal hyperenhancement and submucosal edema seenthroughout the cecum and inferior portion of the ascending colon withsurrounding fat stranding. The inflammatory c hanges extending to theproximal/ostium of the appendix. Right lower quadrant mesenteric lymphnodes are seen. No evidence of extraluminal free air or fluid collection.PELVIS/BLADDER: The urinary bladderappears normal.VESSELS: Unremarkable.BONES AND SOFT TISSUES: No suspicious lytic or sclerotic bony le sions.IMPRESSIONAcute inflammation involving the cecum and extending into the ostium of theappendix.Right lower quadrant mesentery shows fat stranding and prominentreactive lymph nodes. No evidence ofperforation or abscess formation.Preliminary Report Dictated by Resident: Mihaela Rivas MD., have reviewed this study and agree with theabove report.[facility] (NA, K, CL, CO2, GLUCOSE, BUN, CREATININE, CA)2021-02-28 21:48:21 Test Item Value Reference Range Interpretation Comments NA (test code = 142 mmol/L 135-145 3160741476) K (test code = 3.7 mmol/L 3.5-5.0 6837700621) CL (test code = 103 mmol/L 98-108 4634861568) CO2 TOTAL (test code = 32 mmol/L 23-31 H 4988465601) AGAP (test code = 2-16 9180225548) BUN (test code = 16 mg/dL 7-23 8433654626) GLUCOSE (test code = 109 mg/dL 70-110 3662234833) CREATININE (test code = 0.82 mg/dL 0.60-1.25 1280897986) CALCIUM (test code = 9.5 mg/dL 8.6-10.6 0134875930) eGFR (test code = mL/min/1.73m2 3787988868) MERVAT (test code = MERVAT) Association of Glomerular Filtration Rate (GFR) and Staging of Kidney Disease* + --+ --+ ------+| GFR (mL/min/1.73 m2) ?| With Kidney Damage ?| ?Without Kidney Damage+ --------+ --------+ +| ?>90 ?| ?Stage one ?| ? Normal ?+ ---+ ---+ -------+| ?60-89 ?| ?Stage two ?| ? Decreased GFR ? + --+ --+ ------+| ?30-59 ?| ?Stage three ?| ? Stage three ? + --+ --+ ------+| ?15-29 ?| ?Stage four ? | ? Stage four ?+ ---+ ---+ -------+| ?<15 (or dialysis) ? ?| ?Stage five ? | ? Stage five ?+ ---+ ---+ -------+ *Each stage assumes the associated GFR level has been in effect for at least three months. ?Stages 1 to 5, with or without kidney disease, indicate chronic kidney disease. Notes: Determination of stages one and two (with eGFR >59mL/min/1.73 m2) requires estimation of kidney damage for at least three months as defined by structural or functional abnormalities of the kidney, manifested by either:Pathological abnormalities or Markers of kidney damage (including abnormalities in the composition of the blood or urine or abnormalities in imaging tests). Lab Interpretation Abnormal (test code = 39282-8) [facility] Function Panel (ALB, T.PRO, BILI T, BU/BC, ALT, AST, ALK PHOS)2021-02-28 21:48:20 Test Item Value Reference Range Interpretation Comments TOTAL BILI (test code = 4739093015) 0.5 mg/dL 0.1-1.1 BILI UNCON (test code = 6286960808) 0.3 mg/dL 0.1-1.1 BILI CONJ (test code = 5448310442) 0.0 mg/dL 0.0-0.3 T PROTEIN (test code = 3651027662) 7.8 g/dL 6.3-8.2 ALBUMIN (test code = 3614021043) 4.2 g/dL 3.5-5.0 ALK PHOS (test code = 4196392245) 95 U/L 34-122 ALTv (test code = 1742-6) 86 U/L 5-50 H AST(SGOT) (test code = 7783961336) 50 U/L 13-40 H Lab Interpretation (test code = Abnormal 15503-4) [facility] PointeLipase [id number] 21:47:55 Test Item Value Reference Range Interpretation Comments LIPASE (test code = 7053329325) 192 U/L 0-220 Lab Interpretation (test code = Normal 43798-4) [facility] PointeUrinalysis2021-07-05 21:47:39 Test Item Value Reference Range Interpretation Comments APPEARANCE (test code Clear Clear = 2663861396) COLOR (test code = Yellow Yellow 2829337715) PH (test code = 4.8-8.0 1488632459) SP GRAVITY (test code 1.003-1.030 = 3836160641) GLU U QUAL (test code Normal Normal = 1541205371) BLOOD (test code = Negative Negative 6753585156) KETONES (test code = Negative Negative 1520198965) PROTEIN (test code = Negative Negative 2887-8) UROBILIN (test code = Normal Normal 3504758737) BILIRUBIN (test code = Negative Negative 4696893360) NITRITE (test code = Negative Negative 8811842150) LEUK SHAREE (test code Negative Negative = 7403697795) RBC/HPF (test code = See_Comment [Autom ated message] 0780193903) The system [employer] generated this result transmitted ref erence range: 0 - 3 HP F. The reference range was not used to interpr et this result as normal/abnormal . WBC/HPF (test code = See_Comment [Autom ated message] 2240632099) The system [employer] generated this result transmitted ref erence range: 0 - 5 HP F. The reference range was not used to interpr et this result as normal/abnormal . BACTERIA (test code = Negative Negative 3862603222) SQ EPITH (test code = <1 HPF 4965068005) [facility] with [id number] 21:37:14 Test Item Value Reference Range Interpretation Comments WBC (test code = See_Comment H [Automated 6690-2) message] The sy stem which generated this result transmitted reference range : 4.20 - 10.70 10*3/?L. The reference range was not used to interpret this result as normal/abnormal . RBC (test code = See_Comment [Automated 789-8) message] The sy stem which generated this result transmitted reference range : 4.26 - 5.52 10*6/?L. The reference range was not used to interpret this result as normal/abnormal . HGB (test code = 15.0 g/dL 12.2-16.4 718-7) HCT (test code = 45.7 % 38.4-49.3 4544-3) MCV (test code = 84.5 fL 81.7-95.6 787-2) MCH (test code = 27.7 pg 26.1-32.7 785-6) MCHC (test code = 32.8 g/dL 31.2-35.0 786-4) RDW-SD (test code = 40.2 fL 38.5-51.6 11356-2) RDW-CV (test code = 13.2 % 12.1-15.4 788-0) PLT (test code = See_Comment [Automated 777-3) message] The sy stem which generated this result transmitted reference range : 150 - 328 10*3/ ?L. The reference r catalina was not used to interpret this result as normal/abnormal . MPV (test code = 9.6 fL 9.8-13.0 L 52101-5) NRBC/100 WBC (test See_Comment [Automat ed code = 8059199895) message] The system which generated this result transmitted reference range : 0.0 - 10.0 /100 WBCs. The refer ence range was not u sed to interpret th is result as normal/abnormal . NRBC x10^3 (test code <0.01 See_Comment [Auto mated = 3516717406) message] The s ystem which generated this result transmitted reference range : 10*3/?L. The reference range was not used to interpret this result as normal/abnormal . GRAN MAT (NEUT) % 74.7 % (test code = 770-8) IMM GRAN % (test code 0.50 % = 6786006524) LYMPH % (test code = 17.6 % 736-9) MONO % (test code = 5.7 % 5905-5) EOS % (test code = 0.9 % 713-8) BASO % (test code = 0.6 % 706-2) GRAN MAT x10^3(ANC) 8.24 10*3/uL 1.99-6.95 H (test code = 4764469276) IMM GRAN x10^3 (test 0.05 10*3/uL 0.00-0.06 code = 9770623006) LYMPH x10^3 (test code 1.94 10*3/uL 1.09-3.23 = 731-0) MONO x10^3 (test code 0.63 10*3/uL 0.36-1.02 = 742-7) EOS x10^3 (test code = 0.10 10*3/uL 0.06-0.53 711-2) BASO x10^3 (test code 0.07 10*3/uL 0.01-0.09 = 704-7) Lab Interpretation Abnormal (test code = 31015-0) [facility]inteCOM. METABOLIC PANEL (66578)2021-02-02 00:42:09 Test Item Value Reference Range Interpretation Comments NA (test code = 139 mmol/L 135-145 1199973810) K (test code = 3.8 mmol/L 3.5-5.0 0151879148) CL (test code = 101 mmol/L 98-108 5582175947) CO2 TOTAL (test code = 30 mmol/L 23-31 6916635404) AGAP (test code = 2-16 4085395026) BUN (test code = 17 mg/dL 7-23 6069204834) GLUCOSE (test code = 93 mg/dL 70-110 2433175055) CREATININE (test code = 0.92 mg/dL 0.60-1.25 5531395657) TOTAL BILI (test code = 0.8 mg/dL 0.1-1.5 2131721166) CALCIUM (test code = 9.6 mg/dL 8.6-10.6 9075324186) T PROTEIN (test code = 7.9 g/dL 6.3-8.2 0564579971) ALBUMIN (test code = 4.5 g/dL 3.5-5.0 5368354853) ALK PHOS (test code = 95 U/L 34-122 1619656531) ALTv (test code = 104 U/L 5-50 H 1742-6) AST(SGOT) (test code = 55 U/L 13-40 H 8421993874) eGFR (test code = mL/min/1.73m2 1103880732) MERVAT (test code = MERVAT) Association of Glomerular Filtration Rate (GFR) and Staging of Kidney Disease* + --+ --+ ------+| GFR (mL/min/1.73 m2) ?| With Kidney Damage ?| ?Without Kidney Damage+ --------+ --------+ +| ?>90 ?| ?Stage one ?| ? Normal ?+ ---+ ---+ -------+| ?60-89 ?| ?Stage two ?| ? Decreased GFR ? + --+ --+ ------+| ?30-59 ?| ?Stage three ?| ? Stage three ? + --+ --+ ------+| ?15-29 ?| ?Stage four ? | ? Stage four ?+ ---+ ---+ -------+| ?<15 (or dialysis) ? ?| ?Stage five ? | ? Stage five ?+ ---+ ---+ -------+ *Each stage assumes the associated GFR level has been in effect for at least three months. ?Stages 1 to 5, with or without kidney disease, indicate chronic kidney disease. Notes: Determination of stages one and two (with eGFR >59mL/min/1.73 m2) requires estimation of kidney damage for at least three months as defined by structural or functional abnormalities of the kidney, manifested by either:Pathological abnormalities or Markers of kidney damage (including abnormalities in the composition of the blood or urine or abnormalities in imaging tests). Lab Interpretation Abnormal (test code = 09801-3) [facility]09 Test Item Value Reference Range Interpretation Comments MAGNESIUM (test code = 8245349384) 2.0 mg/dL 1.7-2.4 Lab Interpretation (test code = Normal 54639-2) [facility]41:48 Test Item Value Reference Range Interpretation Comments LIPASE (test code = 3500284159) 101 U/L 0-220 Lab Interpretation (test code = Normal 15329-2) [facility] WITH [id number] 00:33:27 Test Item Value Reference Range Interpretation Comments WBC (test code = See_Comment [Automated 9387-2) message] The sy stem which generated this result transmitted reference range : 4.20 - 10.70 10*3/?L. The reference range was not used to interpret this result as normal/abnormal . RBC (test code = See_Comment H [Automated 399-8) message] The sy stem which generated this result transmitted reference range : 4.26 - 5.52 10*6/?L. The reference range was not used to interpret this result as normal/abnormal . HGB (test code = 15.7 g/dL 12.2-16.4 718-7) HCT (test code = 47.0 % 38.4-49.3 4544-3) MCV (test code = 82.6 fL 81.7-95.6 787-2) MCH (test code = 27.6 pg 26.1-32.7 785-6) MCHC (test code = 33.4 g/dL 31.2-35.0 786-4) RDW-SD (test code = 39.3 fL 38.5-51.6 88444-2) RDW-CV (test code = 13.2 % 12.1-15.4 788-0) PLT (test code = See_Comment [Automated 777-3) message] The sy stem which generated this result transmitted reference range : 150 - 328 10*3/ ?L. The reference r catalina was not used to interpret this result as normal/abnormal . MPV (test code = 9.3 fL 9.8-13.0 L 19079-6) NRBC/100 WBC (test See_Comment [Automat ed code = 9244126146) message] The system which generated this result transmitted reference range : 0.0 - 10.0 /100 WBCs. The refer ence range was not u sed to interpret th is result as normal/abnormal . NRBC x10^3 (test code <0.01 See_Comment [Auto mated = 5372964104) message] The s ystem which generated this result transmitted reference range : 10*3/?L. The reference range was not used to interpret this result as normal/abnormal . GRAN MAT (NEUT) % 73.6 % (test code = 770-8) IMM GRAN % (test code 0.20 % = 9677995040) LYMPH % (test code = 18.7 % 736-9) MONO % (test code = 6.2 % 5905-5) EOS % (test code = 0.8 % 713-8) BASO % (test code = 0.5 % 706-2) GRAN MAT x10^3(ANC) 7.22 10*3/uL 1.99-6.95 H (test code = 5364382627) IMM GRAN x10^3 (test <0.03 0.00-0.06 code = 9515138086) LYMPH x10^3 (test code 1.84 10*3/uL 1.09-3.23 = 731-0) MONO x10^3 (test code 0.61 10*3/uL 0.36-1.02 = 742-7) EOS x10^3 (test code = 0.08 10*3/uL 0.06-0.53 711-2) BASO x10^3 (test code 0.05 10*3/uL 0.01-0.09 = 704-7) Lab Interpretation Abnormal (test code = 64896-0) [facility]"
--- NOTE | 2022-05-16 15:38 | RAD REPORT ---
EXAM DESCRIPTION: Pat Single View05/16/2022 2:59 pm CLINICAL HISTORY: cough COMPARISON: 2019 FINDINGS: The lungs appear clear of acute infiltrate. The heart is normal size IMPRESSION: No acute abnormalities displayed
[2022-05-16 15:55] LABS: Absolute Lymphocytes (CBC) 2.8 K/uL (0.7-4.9); Hematocrit 47.5 % (39.6-49.0); Lymphocytes % 25.8 % (15.3-44.8); MCV 82.7 fL (80-100); MPV 7.8 fL (7.6-11.3); RBC Red Blood Cell Count 5.75 M/uL (4.33-5.43)
[2022-05-16 15:59] LABS: Protime INR 1.01
[2022-05-16 16:11] LABS: Albumin 3.6 g/dL (3.4-5.0); Bilirubin Total 0.3 mg/dL (0.2-1.0); Potassium 3.4 mmol/L (3.5-5.1); Protein, Total 7.8 g/dL (6.4-8.2)
[2022-05-16] MEDS ORDERED: NA CHLORIDE 0.9% 250 ML ONE (16:45)
[2022-05-16] MEDS ORDERED: NA CHLORIDE 0.9% 100 ML ONE (16:45)
[2022-05-16] MEDS ORDERED: AZITHROMYCIN 500 MG INJ IVPB ONE (16:45)
[2022-05-16] MEDS ORDERED: CEFTRIAXONE 1000 MG/VIAL ONE (16:45)
[2022-05-16] MEDS ORDERED: NA CHLORIDE 0.9% 2,000 ML ONE (16:45)
[2022-05-16] MEDS ORDERED: HYDROCODONE/APAP 5/325 MG TAB ONE (17:23)
[2022-05-16] MEDS ORDERED: POTASSIUM 25 MEQ EFFERV TAB ONE (17:23)
[2022-05-16] MEDS ORDERED: FAMOTIDINE 20 MG/2 ML VIAL IV ONE (17:40)
[2022-05-16] MEDS ORDERED: ONDANSETRON 4 MG/2 ML VIAL ONE (17:40)
--- NOTE | 2022-05-16 19:05 | ER ---
Nurse's Notes [facility] Name: Zafar Guerin Jr Age: 36 yrs Sex: Male : 1985 Arrival Date: 05/16/2022 Time: 13:29 Bed 10 Private MD: Diagnosis: Unspecified bacterial pneumonia;Dehydration;Cough variant asthma Presentation: 05/16 14:26 Chief complaint: Patient states: coughing, shortness of breath, coughing up phlegm, jh5 sweating with cold chills x4 days. Coronavirus screen: Vaccine status: Patient reports being unvaccinated. Client denies travel out of the [place] in the last 14 days. Ebola Screen: Patient negative for fever greater than or equal to 101.5 degrees Fahrenheit, and additional compatible Ebola Virus Disease symptoms Patient denies exposure to infectious person. Patient denies travel to an Ebola-affected area in the 21 days before illness onset. Initial Sepsis Screen: Does the patient meet any 2 criteria? No. Patient's initial sepsis screen is negative. Does the patient have a suspected source of infection? No. Patient's initial sepsis screen is negative. Risk Assessment: Do you want to hurt yourself or someone else? Patient reports no desire to harm self or others. Onset of symptoms was May 13, 2022. 14:26 Method Of Arrival: Ambulatory [facility] 14:26 Acuity: NUBIA 3 jh5 Triage Assessment: 14:28 General: Appears in no apparent distress. uncomfortable, obese, well groomed, Behavior jh5 is calm, cooperative, appropriate for age. Pain: Denies pain. Respiratory: Historical: - Allergies: 14:28 Amoxicillin; 5 14:28 PENICILLINS; jh5 15:22 Iodine (Hives); snw - PMHx: 14:28 Asthma; jh5 - PSHx: 14:28 ear tubes; jh5 - Immunization history:: Adult Immunizations up to date. - Social history:: Smoking status: Patient denies any tobacco usage or history of. Screenin:30 Abuse screen: Denies threats or abuse. Denies injuries from another. Nutritional jh5 screening: No deficits noted. Tuberculosis screening: No symptoms or risk factors identified. Fall Risk None identified. Assessment: 16:47 General: Appears ill, Behavior is calm, cooperative, appropriate for age. Pain: Denies ap3 pain. Neuro: Level of Consciousness is awake, alert, obeys commands, Oriented to person, place, time, situation. Cardiovascular: Patient's skin is warm and dry. Respiratory: Reports cough that is Airway is patent Respiratory effort is even, unlabored. Vital Signs: 14:26 BP 111 / 59; Pulse 100; Resp 22; Temp 98.6; Pulse Ox 98% ; Weight 142.88 kg; Height 5 jh5 ft. 7 in. (170.18 cm); Pain 4/10; 16:09 BP 113 / 68 RA Sitting (auto/lg); Pulse 82 RA; Resp 18 S; Temp 99.0(O); Pulse Ox 97% on kc6 R/A; 16:47 BP 130 / 80; Pulse 81; Pulse Ox 100% on R/A; ap3 20:25 BP 133 / 80; Pulse 79; Resp 18 S; Pulse Ox 100% on R/A; as6 14:26 Body Mass Index 49.34 (142.88 kg, 170.18 cm) [facility] ED Course: 13:29 Patient arrived in ED. mr 14:28 Triage completed. jh5 14:28 Arm band placed on right wrist. jh5 14:30 Patient has correct armband on for positive identification. jh5 14:30 No provider procedures requiring assistance completed. jh5 14:39 Tsering More FNP-C is [facility]. snw 14:39 Donna Lawrence MD is Attending Physician. snw 15:01 Chest Single View XRAY In Process Unspecified. EDMS 16:02 Blood Culture Adult (2) Sent. [facility] 16:02 CBC with Diff Sent. kc6 16:02 CMP Sent. kc6 16:02 Lactate Sent. kc6 16:02 Inserted saline lock: 20 gauge in right antecubital area, using aseptic technique. kc6 Blood collected. 16:29 Giovanna Wright, SHELBY is Primary Nurse. ap3 20:26 IV discontinued, intact, bleeding controlled, No redness/swelling at site. Pressure as6 dressing applied. Administered Medications: 16:47 Drug: NS 0.9% (20 ml/kg) 20 ml/kg Route: IV; Rate: 1 bolus; Site: right antecubital; ap3 20:24 Follow up: Response: No adverse reaction; IV Status: Completed infusion; IV Intake: as6 2857.6ml 16:48 Drug: Rocephin (cefTRIAXone) 1 grams Route: IV; Rate: calculated rate; Site: right ap3 antecubital; 17:21 Follow up: IV Status: Completed infusion; IV Intake: 100ml ap3 17:20 Drug: Potassium Effervescent Tablet 50 mEq Route: PO; ap3 17:54 Follow up: Response: No adverse reaction ap3 17:20 Drug: [place] (HYDROcodone-acetaminophen) 5 mg-325 mg 1 tabs Route: PO; ap3 17:54 Follow up: Response: No adverse reaction; Pain is decreased ap3 17:21 Drug: Zithromax (azithromycin) 500 mg Route: IVPB; Infused Over: 1 hrs; Site: right ap3 antecubital; 18:33 Follow up: IV Status: Completed infusion; IV Intake: 250ml ap3 17:37 Drug: Zofran (Ondansetron) 4 mg Route: IVP; Site: right antecubital; ap3 17:54 Follow up: Response: No adverse reaction; Nausea is decreased ap3 17:37 Drug: Pepcid (famotidine) 20 mg Route: IVP; Site: right antecubital; ap3 17:54 Follow up: Response: No adverse reaction ap3 Medication: 16:47 VIS not applicable for this client. ap3 Intake: 17:21 IV: 100ml; Total: 100ml. ap3 18:33 IV: 250ml; Total: 350ml. ap3 20:24 IV: 2858ml; Total: 3208ml. as6 Outcome: 19:04 Discharge ordered by MD. collazo 20:26 Discharged to home ambulatory. as6 20:26 Condition: stable 20:26 Discharge instructions given to patient, Instructed on discharge instructions, follow up and referral plans. medication usage, Demonstrated understanding of instructions, follow-up care, medications, Prescriptions given X 5 20:26 Patient left the ED. as6 Signatures: Dispatcher [employer] EDMS Tsering More, CHERYL SOFIAP-Sharron Thierno Moira mr WrightGiovanna, RN RN ap3 Vy Holt, RN RN 5 Fly Chavez RN RN as6 Beatrice Garcia
--- NOTE | 2022-05-16 19:05 | EDPHYS ---
Physician Documentation [facility] Name: Zafar Guerin Jr Age: 36 yrs Sex: Male : 1985 Arrival Date: 05/16/2022 Time: 13:29 Bed 10 Private MD: ED Physician Donna Lawrence HPI: 05/16 19:10 This 36 yrs old Male presents to ER via Ambulatory with complaints of Cough, snw Congestion, Wheezing. 19:10 The patient or guardian reports airway noise, cough, flu symptoms. Onset: The snw symptoms/episode began/occurred gradually, 4 day(s) ago, and became worse and became persistent. Severity of symptoms: At their worst the symptoms were moderate, severe. Associated signs and symptoms: The patient has no apparent associated signs or symptoms. bronchitis and pneumonia a few times. The patient has not recently seen a physician. Historical: - Allergies: 14:28 Amoxicillin; jh5 14:28 PENICILLINS; jh5 15:22 Iodine (Hives); snw - PMHx: 14:28 Asthma; jh5 - PSHx: 14:28 ear tubes; jh5 - Immunization history:: Adult Immunizations up to date. - Social history:: Smoking status: Patient denies any tobacco usage or history of. ROS: 19:09 Eyes: Negative for injury, pain, redness, and discharge, ENT: Negative for injury, snw pain, and discharge, Neck: Negative for injury, pain, and swelling, Cardiovascular: Negative for chest pain, palpitations, and edema. 19:09 Back: Negative for injury and pain, : Negative for injury, bleeding, discharge, and swelling, MS/Extremity: Negative for injury and deformity, Skin: Negative for injury, rash, and discoloration, Neuro: Negative for headache, weakness, numbness, tingling, and seizure, Psych: Negative for depression, anxiety, suicide ideation, homicidal ideation, and hallucinations. 19:09 Constitutional: Positive for body aches, fatigue, malaise. 19:09 Respiratory: Positive for cough, shortness of breath. 19:09 Abdomen/GI: Positive for vomiting. Exam: 15:49 Constitutional: This is a well developed, well nourished patient who is awake, alert, snw and in mild resp distress 2nd to paroxysmal cough Head/Face: Normocephalic, atraumatic. Eyes: Pupils equal round and reactive to light, extra-ocular motions intact. Lids and lashes normal. Conjunctiva and sclera are non-icteric and not injected. Cornea within normal limits. Periorbital areas with no swelling, redness, or edema. ENT: Nares patent. No nasal discharge, no septal abnormalities noted. Tympanic membranes are normal and external auditory canals are clear. Oropharynx with no redness, swelling, or masses, exudates, or evidence of obstruction, uvula midline. Mucous membranes moist. Neck: Trachea midline, no thyromegaly or masses palpated, and no cervical lymphadenopathy. Supple, full range of motion without nuchal rigidity, or vertebral point tenderness. No Meningismus. Chest/axilla: Normal chest wall appearance and motion. Nontender with no deformity. No lesions are appreciated. 15:49 Abdomen/GI: Soft, non-tender, with normal bowel sounds. No distension or tympany. No guarding or rebound. No evidence of tenderness throughout. Back: No spinal tenderness. No costovertebral tenderness. Full range of motion. Skin: Warm, dry with normal turgor. Normal color with no rashes, no lesions, and no evidence of cellulitis. MS/ Extremity: Pulses equal, no cyanosis. Neurovascular intact. Full, normal range of motion. Neuro: Awake and alert, GCS 15, oriented to person, place, time, and situation. Cranial nerves II-XII grossly intact. Motor strength 5/5 in all extremities. Sensory grossly intact. Cerebellar exam normal. Normal gait. Psych: Awake, alert, with orientation to person, place and time. Behavior, mood, and affect are within normal limits. 15:49 Cardiovascular: Rate: tachycardic, Rhythm: regular, Pulses: no pulse deficits are appreciated, Heart sounds: normal, Edema: is not appreciated. 15:49 Respiratory: mild respiratory distress is noted, Respirations: accessory muscle usage, shallow respirations, tachypnea, Breath sounds: bronchial sounds, that are moderate, are heard diffusely. Vital Signs: 14:26 BP 111 / 59; Pulse 100; Resp 22; Temp 98.6; Pulse Ox 98% ; Weight 142.88 kg; Height 5 jh5 ft. 7 in. (170.18 cm); Pain 4/10; 16:09 BP 113 / 68 RA Sitting (auto/lg); Pulse 82 RA; Resp 18 S; Temp 99.0(O); Pulse Ox 97% on kc6 R/A; 16:47 BP 130 / 80; Pulse 81; Pulse Ox 100% on R/A; ap3 20:25 BP 133 / 80; Pulse 79; Resp 18 S; Pulse Ox 100% on R/A; as6 14:26 Body Mass Index 49.34 (142.88 kg, 170.18 cm) [facility] MDM: 15:16 Patient medically screened. snw 19:07 Data reviewed: vital signs, nurses notes, lab test result(s), radiologic studies. Data snw interpreted: Pulse oximetry: on room air is 100 %. Interpretation: normal. Counseling: I had a detailed discussion with the patient and/or guardian regarding: the historical points, exam findings, and any diagnostic results supporting the discharge/admit diagnosis, the presence of at least one elevated blood pressure reading (>120/80) during this emergency department visit, lab results, radiology results, the need for outpatient follow up, for definitive care, to return to the emergency department if symptoms worsen or persist or if there are any questions or concerns that arise at home. Response to treatment: the patient's symptoms have markedly improved after treatment. Special discussion: I have referred the patient to see his PCP for further evaluation of high blood pressure. Based on the history and exam findings, there is no indication for further emergent testing or inpatient evaluation. I discussed with the patient/guardian the need to see the primary care provider for further evaluation of the symptoms. 05/16 14:32 Order name: SARS-COV-2 RT PCR (Document "Date of Onset" if Symptomatic); Complete Time: sd 16:57 05/16 14:32 Order name: Influenza Screen (a \\T\\ B); Complete Time: 15:44 sd2 05/16 14:40 Order name: Blood Culture Adult (2) snw 05/16 14:40 Order name: CBC with Diff; Complete Time: 16:05 w 05/16 14:40 Order name: CMP; Complete Time: 16:19 w 05/16 14:40 Order name: Lactate; Complete Time: 16:22 w 05/16 14:40 Order name: Protime (+inr); Complete Time: 16:05 w 05/16 14:40 Order name: Ptt, Activated; Complete Time: 16:05 snw 05/16 14:40 Order name: Chest Single View XRAY; Complete Time: 15:39 snw 05/16 20:13 Order name: Lactate Sepsis 2 HR Follow-up; Complete Time: 20:24 EDMS 05/16 14:40 Order name: Accucheck; Complete Time: 16:18 snw 05/16 14:40 Order name: EKG - Nurse/Tech; Complete Time: 15:16 snw 05/16 14:40 Order name: IV Saline Lock - Large Bore; Complete Time: 16:01 snw 05/16 14:40 Order name: Labs collected and sent; Complete Time: 16:02 snw 05/16 14:40 Order name: O2 Per Protocol; Complete Time: 16:48 snw 05/16 14:40 Order name: O2 Sat Monitoring; Complete Time: 16:48 snw 05/16 15:21 Order name: Recheck Vital Signs; Complete Time: 16:09 snw EC:49 Rate is 94 beats/min. Rhythm is regular. QRS [place] is Normal. VA interval is normal. QRS snw interval is normal. T waves are Flattened. Clinical impression: NSR w/ Non-specific ST/T Changes. Administered Medications: 16:47 Drug: NS 0.9% (20 ml/kg) 20 ml/kg Route: IV; Rate: 1 bolus; Site: right antecubital; ap3 20:24 Follow up: Response: No adverse reaction; IV Status: Completed infusion; IV Intake: as6 2857.6ml 16:48 Drug: Rocephin (cefTRIAXone) 1 grams Route: IV; Rate: calculated rate; Site: right ap3 antecubital; 17:21 Follow up: IV Status: Completed infusion; IV Intake: 100ml ap3 17:20 Drug: Potassium Effervescent Tablet 50 mEq Route: PO; ap3 17:54 Follow up: Response: No adverse reaction ap3 17:20 Drug: [place] (HYDROcodone-acetaminophen) 5 mg-325 mg 1 tabs Route: PO; ap3 17:54 Follow up: Response: No adverse reaction; Pain is decreased ap3 17:21 Drug: Zithromax (azithromycin) 500 mg Route: IVPB; Infused Over: 1 hrs; Site: right ap3 antecubital; 18:33 Follow up: IV Status: Completed infusion; IV Intake: 250ml ap3 17:37 Drug: Zofran (Ondansetron) 4 mg Route: IVP; Site: right antecubital; ap3 17:54 Follow up: Response: No adverse reaction; Nausea is decreased ap3 17:37 Drug: Pepcid (famotidine) 20 mg Route: IVP; Site: right antecubital; ap3 17:54 Follow up: Response: No adverse reaction ap3 Disposition Summary: 05/16/22 19:04 Discharge Ordered Location: Home snw Condition: Stable snw Diagnosis - Unspecified bacterial pneumonia snw - Dehydration snw - Cough variant asthma snw Followup: snw - With: Emergency Department - When: As needed - Reason: Worsening of condition Followup: snw - With: Private Physician - When: 2 - 3 days - Reason: Recheck today's complaints, Continuance of care, Re-evaluation by your physician Discharge Instructions: - Discharge Summary Sheet snw - Asthma, Adult snw - Dehydration, Adult snw - Community-Acquired Pneumonia, Adult snw - Rehydration, Adult snw Forms: - Medication Reconciliation Form snw - Thank You Letter snw - Work release form snw - Antibiotic Education snw - Prescription Opioid Use snw Prescriptions: - albuterol sulfate 90 mcg/actuation Inhalation HFA aerosol inhaler - inhale 2 puff by INHALATION route every 4-6 hours; 1 Inhaler; Refills: 0, snw Product Selection Permitted - Pepcid 20 mg Oral Tablet - take 1 tablet by ORAL route every 12 hours for 5 days; 10 tablet; Refills: 0, snw Product Selection Permitted - Zyrtec 10 mg Oral Tablet - take 1 tablet by ORAL route once daily As needed; 20 tablet; Refills: 0, snw Product Selection Permitted - Prednisone 20 mg Oral Tablet - take 2 tablets by ORAL route once daily for 5 days; 10 tablet; Refills: 0, snw Product Selection Permitted - Zithromax 500 mg Oral Tablet - take 1 tablet by ORAL route once daily for 5 days; 5 tablet; Refills: 0, snw Product Selection Permitted Signatures: Dispatcher [employer] EDTsering Maurice FNP-C RN OBGYN-Csnw Giovanna Wright RN RN ap3 yV Holt RN RN jh5 Fly Chavez RN as6 Corrections: (The following items were deleted from the chart) 17:50 14:40 Cardiac monitoring ordered. w ap3 20:13 19:19 LACTATE+C.LAB.BRZ ordered. EDMS EDMS
[2022-05-18 03:09] VITALS: BP 130/80; O2SAT 100
[2022-05-18 03:16] VITALS: TEMP 99
--- NOTE | 2022-05-18 13:42 | EKG ---
Test Date: 2022-05-16 Test Time: 15:16:21 Cop Examiner: MEASUREMENT RESULTS: Intervals: Rate: 94 RI: 152 QRSD: 82 QT: 340 QTc: 425 [place]: P: 46 RI: 152 QRS: 49 T: 24 INTERPRETIVE STATEMENTS: Normal sinus rhythm Nonspecific T wave abnormality Abnormal ECG Compared to ECG 03/25/2010 13:51:00 T-wave abnormality now present Sinus arrhythmia no longer present Electronically Signed On 05-18-22 13:39:00 CDT by Shamar Coyle
== END 2022-05-16 20:26 | disposition home or self-care (01) ==
LOC: ER 13:28
DX: J15.9 Unspecified bacterial pneumonia (principal); J45.991 Cough variant asthma; E86.0 Dehydration; Z88.0 Allergy status to penicillin; Z88.1 Allergy status to other antibiotic agents; Z91.048 Other nonmedicinal substance allergy status
CPT/HCPCS: 36415; 71045; 80053; 83605; 85025; 85610; 85730; 87040; 87804; 93005; 96361; 96365; 96367; 96375; 99284; J0456; J2405; J7030; J7050; U0003

== ENCOUNTER 2022-05-29 18:16 | Emergency (ER) | payer SELFPAY ==
--- OUTSIDE RECORDS SUMMARY | 2022-05-29 18:23 | XMS REPORT | Continuity of Care Document ---
:1985 Author Organization [facility] t Address [address] [place] [address] Care Team Providers Name Role Phone Pcp, Patient Does Not Have A Primary Care Physician +[id number] HAWA MCGEE Attending Clinician Unavailable Radha Hughes RN Attending Clinician Unavailable Only, Jose Db Test Attending Clinician Unavailable Enrique Thorne MD Attending Clinician ENRIQUE THORNE Attending Clinician Unavailable Hawa Mcgee MD Attending Clinician Peg Mooney Attending Clinician Doctor Unassigned, [place] Attending Clinician Unavailable Broderick RYAN, Marisel Ng [...] Number Effective Date Expiration Date Elicia bach [facility] [id number] 2018 00:00:00 Problems Condition Condition Condition Status [...] rs active active ity of problems problems [facility] Allergies, Adverse Reactions, Alerts Allergy Allergy Status [...] Source Exposure to Yes University of SARS-CoV-2 [place] [facility] (event) Branch Tobacco use and 2021-04-14 2021-04-14 Never used Universit y of exposure 00:00:00 00:00:00 [facility] Alcohol intake 2021-04-14 2021-04-14 Current drinker Unive rsity of 00:00:00 00:00:00 of alcohol [place] [facility] (finding) Branch History SDOH 2021-02-28 2021-02-28 21 University o f Education 00:00:00 00:00:00 [facility] Sex Ass[birth year] At [birth year] Universit y of 00:00:00 00:00:00 [facility] Smoking Status Start Date Stop Date Source Never smoker [facility] Branch Medications Ordered Filled Start Stop Current Ordering Indication Dosage Frequency Signature Comments Components Source Medication Medication Date Date Medication? Clinician (SIG) Name Name predniSONE 2020- No [id number] 40mg Take 2 Univers 20 mg 03-04- tablets by ity of tablet 00:00: 04:59 mouth [place] 00 :00 daily for Medical 4 days. Branch predniSONE 2020- No [id number] 40mg Take 2 Univers 20 mg 03-04-14 tablets by ity of tablet 00:00: 04:59 mouth [place] 00 :00 daily for Medical 4 days. Branch predniSONE 2020- No [id number] 40mg Take 2 Univers 20 mg 03-04-14 tablets by ity of tablet 00:00: 04:59 mouth [place] 00 :00 daily for Medical 4 days. Branch ALBUTEROL Yes 2{puff} Inhale 2 U nivers INHALE 7-08 Puffs as ity of 20:37: needed for [place] [address] Other Medical (Wheezing) Branch . ALBUTEROL Yes 2{puff} Inhale 2 U nivers INHALE 7-08 Puffs as ity of 20:37: needed for [place] [address] Other Medical (Wheezing) Branch . ALBUTEROL Yes 2{puff} Inhale 2 U nivers INHALE 7-08 Puffs as ity of 20:37: needed for [place] [address] Other Medical (Wheezing) Branch . ALBUTEROL Yes 2{puff} Inhale 2 U nivers INHALE 7-08 Puffs as ity of 20:37: needed for [place] [address] Other Medical (Wheezing) Branch . ALBUTEROL Yes 2{puff} Inhale 2 U nivers INHALE 7-08 Puffs as ity of 20:37: needed for [place] 21 Other Medical (Wheezing) Branch . ALBUTEROL Yes 2{puff} Inhale 2 U nivers INHALE 7-08 Puffs as ity of 20:37: needed for [place] 21 Other Medical (Wheezing) Branch . ALBUTEROL Yes 2{puff} Inhale 2 U nivers INHALE 7-08 Puffs as ity of 20:37: needed for [place] 21 Other Medical (Wheezing) Branch . ALBUTEROL Yes 2{puff} Inhale 2 U nivers INHALE 7-08 Puffs as ity of 20:37: needed for [place] 21 Other Medical (Wheezing) Branch . ALBUTEROL Yes 2{puff} Inhale 2 U nivers INHALE 7-08 Puffs as ity of 20:37: needed for [place] 21 Other Medical (Wheezing) Branch . ALBUTEROL Yes 2{puff} Inhale 2 U nivers INHALE 7-08 Puffs as ity of 20:37: needed for [place] 21 Other Medical (Wheezing) Branch . ALBUTEROL Yes 2{puff} Inhale 2 U nivers INHALE 7-08 Puffs as ity of 20:37: needed for [place] 21 Other Medical (Wheezing) Branch . ciprofloxac 2020- No [id number] 500mg Take 1 Univers in HCl 500 7-16 tablet by ity of mg tablet 00:00: 04:59 mouth [place] 00 :00 every 12 Medical (twelve) Branch hours for 7 days. ciprofloxac 2020- No [id number] 500mg Take 1 Univers in HCl 500 03-03-16 tablet by ity of mg tablet 00:00: 04:59 mouth [place] 00 :00 every 12 Medical (twelve) Branch hours for 7 days. ciprofloxac 2020- No [id number] 500mg Take 1 Univers in HCl 500 7-16 tablet by ity of mg tablet 00:00: 04:59 mouth [place] 00 :00 every 12 Medical (twelve) Branch hours for 7 days. ciprofloxac 2020- No [id number] 500mg Take 1 Univers in HCl 500 708 07-16 tablet by ity of mg tablet 00:00: 04:59 mouth [place] 00 :00 every 12 Medical (twelve) Branch hours for 7 days. ciprofloxac 2020- No [id number] 500mg Take 1 Univers in HCl 500 03-03-16 tablet by ity of mg tablet 00:00: 04:59 mouth [place] 00 :00 every 12 Medical (twelve) Branch hours for 7 days. ciprofloxac 2020- No [id number] 500mg Take 1 Univers in HCl 500 03-0316 tablet by ity of mg tablet 00:00: 04:59 mouth [place] 00 :00 every 12 Medical (twelve) Branch hours for 7 days. predniSONE 2020-2020- No [id number] 30mg Take 3 Univers 10 mg 03-03-14 tablets by ity of tablet 00:00: 04:59 mouth [place] 00 :00 daily for Medical 5 days. [place] predniSONE 2020- No [id number] 20mg Take 1 Univers 20 mg 03-03-14 tablet by ity of tablet 00:00: 04:59 mouth [place] 00 :00 daily for Medical 5 days. Branch predniSONE 2020- No [id number] 10mg Take 1 Univers 10 mg 03-03-14 tablet by ity of tablet 00:00: 04:59 mouth [place] 00 :00 daily for Medical 5 days. [place] predniSONE 2020- No [id number] 30mg Take 3 Univers 10 mg 03-03-14 tablets by ity of tablet 00:00: 04:59 mouth [place] 00 :00 daily for Medical 5 days. Branch predniSONE 2020- No [id number] 20mg Take 1 Univers 20 mg 03-03-14 tablet by ity of tablet 00:00: 04:59 mouth [place] 00 :00 daily for Medical 5 days. Branch predniSONE 2020- No [id number] 10mg Take 1 Univers 10 mg -04 02-14 tablet by ity of tablet 00:00: 04:59 mouth [place] 00 :00 daily for Medical 5 days. Branch predniSONE 2020- No [id number] 30mg Take 3 Univers 10 mg -04 02-14 tablets by ity of tablet 00:00: 04:59 mouth [place] 00 :00 daily for Medical 5 days. Branch predniSONE 2020- No [id number] 20mg Take 1 Univers 20 mg 03-03 tablet by ity of tablet 00:00: 04:59 mouth [place] 00 :00 daily for Medical 5 days. Branch predniSONE 2020- No [id number] 10mg Take 1 Univers 10 mg 03-03 [...] IV Push, ity of mg 02:04: Q4HPRN, [place] 31 Starting Medical 03/01/21 Branch at 2104, Until Discontinu ed, Routine, Pain (scale 7-10) pantoprazol Yes 40mg 40 mg, Univ ers e 7-06 Oral, ity of (PROTONIX) 14:00: DAILY, [place] EC tablet 00 First dose Medi alison 40 mg on Sun03/01/21 at 0900, Until Discontinu ed, Routine NaCl 0.9% Yes 1000mL at 125 [facility] ers (NS) IV 7-06 mL/hr, IV ity of infusion 01:15: [place]fusion, [place] 1[place]000 mL 00 CONTINUOUS Medic al , Starting [place] Sun02/28/21 at 2015, Until Discontinu ed, Routine ondansetron Yes 4mg 4 mg, Slow Univers (ZOFRAN 7- IV Push, ity of (PF)) 01:03: Q6HPRN, [place] injection 4 59 Starting Medi alison mg Sun02/28/21 Branch at 2002, Until Discontinu ed, Routine, Nausea and Vomiting (N/V) morpHINE 2020- No 4mg 4 mg, Slow Un neil injection 4 03-01 07-07 IV Push, ity of mg 01:03: 01:02 Q4RN, [place] 56 :56 Starting Medical [facility] 02/28/21 Branch at 2002, Until Sun03/01/21 at [...] 03-01 Oral, ity of (TYLENOL) 01:03: Q6HPRN, [place] tablet 650 47 Starting Medic al mg Sun02/28/21 Branch at 2002, Until Discontinu ed, Routine, Pain (scale 1-3) metroNIDAZO Yes 500mg 500 mg, IV Univers LE in NaCl 03-01 Infusion, ity of (iso-os) 01:00: Q8H ABX, [place] (FLAGYL 00 First dose Medica l I.V.) RTU on Sun [place] IV infusion 02/28/21 at 500 mg 1999, [...] :00 ONCE, 1 Medical 25 mg dose, [facility] 02/28/21 at 1715, STAT methylpredn 2020- No 125mg 125 mg, U nivers isolone sod 02-28 Slow IV ity of succ 22:10: 22:11 Push, [place] (SOLU-MEDRO 00 :00 ONCE, 1 Medic al L) dose, [facility] injection 02/28/21 at 125 mg 1715, STAT iopamidol 2020- No [id number] 120mL 120 mL, Univers (ISOVUE 02-28 Intravenou [...] 1,000 mL 00 :00 IV Medical Infusion, [place] ONCE, 1 dose, 02/01/21 at 1915, MERI ondansetron 2020-0 Yes [id number] 4mg Take 1 Univers (ZOFRAN -08 tablet by ity of ODT) 4 mg 00:00: mouth [place] disintegrat 00 every 8 Medic al ing tablet (eight) Branch hours as needed for Nausea and Vomiting (N/V). ondansetron 2020- No [id number] 4mg Take 1 Univers (ZOFRAN 02-01-08 tablet by ity of ODT) 4 mg 00:00: 00:00 mouth [place] disintegrat 00 :00 every 8 Medic al ing tablet (eight) Branch hours as needed for Nausea and Vomiting (N/V). methylPREDN 2020-0 Yes [id number] Take by Univers ISolone 5-25 mouth ity of (MEDROL, 00:00: SEE-INSTRU [place] SAMUEL,) 4 mg 00 CTIONS. Medica l tablets follow Branch package directions polymyxin B 2020-0 Yes [id number] 1[drp] Place 1 Univers sulf-trimet 5-25 Drop in ity o f hoprim 00:00: right eye [place] 10,000 00 every 4 Medical unit- 1 (four) Branch mg/mL hours. ophthalmic drops methylPREDN 2020-0 Yes [id number] Take by Univers ISolone 5-25 mouth ity of (MEDROL, 00:00: SEE-INSTRU [place] SAMUEL,) 4 mg 00 CTIONS. Medica l tablets follow Branch package directions polymyxin B 2020-0 Yes [id number] 1[drp] Place 1 Univers sulf-trimet 5-25 Drop in ity o f hoprim 00:00: right eye [place] 10,000 00 every 4 Medical unit- 1 (four) Branch mg/mL hours. ophthalmic drops polymyxin B 2020-0 Yes [id number] 1[drp] Place 1 Univers sulf-trimet 5-25 Drop in ity o f hoprim 00:00: right eye [place] 10,000 00 every 4 Medical unit- 1 (four) Branch mg/mL hours. ophthalmic drops polymyxin B 2020-0 Yes [id number] 1[drp] Place 1 Univers sulf-trimet 5-25 Drop in ity o f hoprim 00:00: right eye [place] 10,000 00 every 4 Medical unit- 1 (four) Branch mg/mL hours. ophthalmic drops polymyxin B 2020-0 Yes [id number] 1[drp] Place 1 Univers sulf-trimet 5-25 Drop in ity o f hoprim 00:00: right eye [place] 10,000 00 every 4 Medical unit- 1 (four) Branch mg/mL hours. ophthalmic drops polymyxin B 2020-0 Yes [id number] 1[drp] Place 1 Univers sulf-trimet 5-25 Drop in ity o f hoprim 00:00: right eye [place] 10,000 00 every 4 Medical unit- 1 (four) Branch mg/mL hours. ophthalmic drops polymyxin B 2021-0 Yes [id number] 1[drp] Place 1 Univers sulf-trimet 5-25 Drop in ity o f hoprim 00:00: right eye [place] 10,000 00 every 4 Medical unit- 1 (four) Branch mg/mL hours. ophthalmic drops polymyxin B 2020-0 Yes [id number] 1[drp] Place 1 Univers sulf-trimet 5-25 Drop in ity o f hoprim 00:00: right eye [place] 10,000 00 every 4 Medical unit- 1 (four) Branch mg/mL hours. ophthalmic drops polymyxin B 2020-0 Yes [id number] 1[drp] Place 1 Univers sulf-trimet 5-25 Drop in ity o f hoprim 00:00: right eye [place] 10,000 00 every 4 Medical unit- 1 (four) Branch mg/mL hours. ophthalmic drops polymyxin B 2020-0 Yes [id number] 1[drp] Place 1 Univers sulf-trimet 5-25 Drop in ity o f hoprim 00:00: right eye [place] 10,000 00 every 4 Medical unit- 1 (four) Branch mg/mL hours. ophthalmic drops polymyxin B 2020-0 Yes [id number] 1[drp] Place 1 Univers sulf-trimet 5-25 Drop in ity o f hoprim 00:00: right eye [place] 10,000 00 every 4 Medical unit- 1 (four) Branch mg/mL hours. ophthalmic drops polymyxin B 2020- Yes [id number] 1[drp] Place 1 Univers sulf-trimet 5-25 Drop in ity o f hoprim 00:00: right eye [place] 10,000 00 every 4 Medical unit- 1 (four) Branch mg/mL hours. ophthalmic drops polymyxin B 2020-0 Yes [id number] 1[drp] Place 1 Univers sulf-trimet 5-25 Drop in ity o f hoprim 00:00: right eye [place] 10,000 00 every 4 Medical unit- 1 (four) Branch mg/mL hours. ophthalmic drops methylPREDN 2020- No [id number] Take by Univers ISolone 5-25 07-08 mouth ity of (MEDROL, 00:00: 00:00 [place]-INSTRU [place] SAMUEL,) 4 mg 00 :00 CTIONS. Medica l tablets follow Branch package directions clindamycin 2020- No [id number] 300mg Take 2 Univers 150 mg 5-25 06-02 capsules ity of capsule 00:00: 04:59 by mouth 4 [place] 00 :00 (four) Medical times Branch daily for 7 days. olopatadine 2019-08 2020- No [id number] 1[drp] Place 1 Univers (PATANOL) 09-01 Drop in ity of 0.1 % 00:00: 05:59 both eyes [place] ophthalmic 00 :00 2 (two) Medica l solution times Branch daily for 30 days. levocetiriz 2019-08- No [id number] 5mg Take 1 Univers ine 5 mg 09-01 tablet by ity o f tablet 00:00: 05:59 mouth [place] 00 :00 every Medical evening Branch for 30 days. fluticasone 2019-08- No [id number] 2{spray Use 2 Univers propionate 09-01 } Sprays in ity of 50 00:00: 05:59 each [place] mcg/actuati 00 :00 nostril Medic al on nasal daily for Branch spray 30 days. ALBUTEROL 2019-0 Yes 2{puff} Inhale 2 U nivers INHALE 6-17 Puffs as ity of 14:17: needed for [place] [address] Other Medical (Wheezing) Branch . ALBUTEROL 2019-0 Yes 2{puff} Inhale 2 U nivers INHALE 6-17 Puffs as ity of 14:17: needed for [place] [address] Other Medical (Wheezing) Branch . ALBUTEROL 2019-0 Yes 2{puff} Inhale 2 U nivers INHALE 6-17 Puffs as ity of 14:17: needed for [place] [address] Other Medical (Wheezing) Branch . ALBUTEROL 2020-0 Yes 2{puff} Inhale 2 U nivers INHALE 6-17 Puffs as ity of 14:17: needed for [place] [address] Other Medical (Wheezing) Branch . ALBUTEROL 2020-0 Yes 2{puff} Inhale 2 U nivers INHALE 6-17 Puffs as ity of 14:17: needed for [place] [address] Other Medical (Wheezing) Branch . albuterol 2019- 2020- No [id number] 2{puff} Inhale 2 Univers 90 6-17 07-18 Puffs ity of mcg/actuati 00:00: 04:59 every 6 [place] on inhaler 00 :00 (six) Medical hours as Branch needed for Wheezing or Shortness of Breath for up to 30 days. benzonatate 0 2020- No [id number] 200mg Take 1 Univers 200 mg 6-17 [...] Johansen PA-C / Nicolás Kellogg MD VIVIANA# [id number] DPS# [id number] x Lic.# [id number] NPI# [id number] traMADOL 2016-0 Yes 50mg Take 1 Univers (ULTRAM) 50 7-03 tablet by ity of mg tablet 00:00: mouth [place] 00 every 6 Medical (six) Branch hours as needed for Pain (scale 4-6). Miguel Johansen PA-C / Nicolás Kellogg MD VIVIANA# [id number] DPS# [id number] x Lic.# [id number] NPI# [id number] traMADOL 2016-0 Yes 50mg Take 1 Univers (ULTRAM) 50 7-03 tablet by ity of mg tablet 00:00: mouth [place] 00 every 6 Medical (six) Branch hours as needed for Pain (scale 4-6). Miguel Johansen PA-C / Nicolás Kellogg MD VIVIANA# [id number] DPS# [id number] x Lic.# [id number] NPI# [id number] traMADOL 2016-0 Yes 50mg Take 1 Univers (ULTRAM) 50 7-03 tablet by ity of mg tablet 00:00: mouth [place] 00 every 6 Medical (six) Branch hours as needed for Pain (scale 4-6). Miguel Johansen PA-C / Nicolás Kellogg MD VIVIANA# [id number] DPS# [id number] x Lic.# [id number] NPI# [id number] traMADOL 2016-0 Yes 50mg Take 1 Univers (ULTRAM) 50 7-03 tablet by ity of mg tablet 00:00: mouth [place] 00 every 6 Medical (six) Branch hours as needed for Pain (scale 4-6). Miguel Johansen PA-C / Nicolás Kellogg MD VIVIANA# [id number] DPS# [id number] x Lic.# [id number] NPI# [id number] traMADOL 2016-0 Yes 50mg Take 1 Univers (ULTRAM) 50 7-03 tablet by ity of mg tablet 00:00: mouth [place] 00 every 6 Medical (six) Branch hours as needed for Pain (scale 4-6). Miguel Johansen PA-C / Nicolás Kellogg MD VIVIANA# [id number] DPS# [id number] x Lic.# [id number] NPI# [id number] traMADOL 2016-0 Yes 50mg Take 1 Univers (ULTRAM) 50 7-03 tablet by ity of mg tablet 00:00: mouth [place] 00 every 6 Medical (six) Branch hours as needed for Pain (scale 4-6). Miguel Johansen PA-C / Nicolás Kellogg MD VIVIANA# [id number] DPS# [id number] x Lic.# [id number] NPI# [id number] traMADOL 2016-0 Yes 50mg Take 1 Univers (ULTRAM) 50 7-03 tablet by ity of mg tablet 00:00: mouth [place] 00 every 6 Medical (six) Branch hours as needed for Pain (scale 4-6). Miguel Johansen PA-C / Nicolás Kellogg MD VIVIANA# [id number] DPS# [id number] x Lic.# [id number] NPI# [id number] traMADOL 2016-0 Yes 50mg Take 1 Univers (ULTRAM) 50 7-03 tablet by ity of mg tablet 00:00: mouth [place] 00 every 6 Medical (six) Branch hours as needed for Pain (scale 4-6). Miguel Johansen PA-C / Nicolás Kellogg MD VIVIANA# [id number] DPS# [id number] x Lic.# [id number] NPI# [id number] traMADOL 2016-0 Yes 50mg Take 1 Univers (ULTRAM) 50 7-03 tablet by ity of mg tablet 00:00: mouth [place] 00 every 6 Medical (six) Branch hours as needed for Pain (scale 4-6). Miguel Johansen PA-C / Nicolás Kellogg MD VIVIANA# [id number] DPS# [id number] x Lic.# [id number] NPI# [id number] traMADOL 2016-0 Yes 50mg Take 1 Univers (ULTRAM) 50 7-03 tablet by ity of mg tablet 00:00: mouth [place] 00 every 6 Medical (six) Branch hours as needed for Pain (scale 4-6). Miguel Johansen PA-C / Nicolás Kellogg MD VIVIANA# [id number] DPS# [id number] x Lic.# [id number] NPI# [id number] traMADOL 2016-0 Yes 50mg Take 1 Univers (ULTRAM) 50 7-03 tablet by ity of mg tablet 00:00: mouth [place] 00 every 6 Medical (six) Branch hours as needed for Pain (scale 4-6). Nicolás Zelaya PA-C, MD VIVIANA# [id number] DPS# [id number] x Lic.# [id number] NPI# [id number] traMADOL 2016-0 Yes 50mg Take 1 Univers (ULTRAM) 50 7-03 tablet by ity of mg tablet 00:00: mouth [place] 00 every 6 Medical (six) Branch hours as needed for Pain (scale 4-6). Miguel Johansen PA-C / Nicolás Kellogg MD VIVIANA# [id number] DPS# [id number] x Lic.# [id number] NPI# [id number] traMADOL 2016-0 Yes 50mg Take 1 Univers (ULTRAM) 50 7-03 tablet by ity of mg tablet 00:00: mouth [place] 00 every 6 Medical (six) Branch hours as needed for Pain (scale 4-6). Miguel Johansen PA-C / Nicolás Kellogg MD VIVIANA# [id number] DPS# [id number] x Lic.# [id number] NPI# [id number] traMADOL 2016-0 Yes 50mg Take 1 Univers (ULTRAM) 50 7-03 tablet by ity of mg tablet 00:00: mouth [place] 00 every 6 Medical (six) Branch hours as needed for Pain (scale 4-6). Miguel Johansen PA-C / Nicolás Kellogg MD VIVIANA# [id number] DPS# [id number] x Lic.# [id number] NPI# [id number] traMADOL 2016-0 Yes 50mg Take 1 Univers (ULTRAM) 50 7-03 tablet by ity of mg tablet 00:00: mouth [place] 00 every 6 Medical (six) Branch hours as needed for Pain (scale 4-6). Miguel Johansen PA-C / Nicolás Kellogg MD VIVIANA# [id number] DPS# [id number] x Lic.# [id number] NPI# [id number] Vital Signs Vital Name Observation Time Observation Value Comments Source Systolic blood 2021-03-10 130 mm[Hg] University of pressure 14:31:00 [facility] Diastolic blood 2021-03-10 88 mm[Hg] [place] o pressure 14:31:00 [facility] Heart rate 2021-03-10 80 /min University 14:31:00 [facility] Body temperature 2021-03-10 36.78 Tami University 14:31:00 [facility] Respiratory rate 2021-03-10 20 /min University 14:31:00 [facility] Body height 2021-03-10 167.6 cm University 14:31:00 [facility] Body weight 2021-03-10 128.549 kg University 14:31:00 [facility] BMI 2021-03-10 45.74 kg/m2 [facility] 14:31:00 [facility] Oxygen saturation 2021-03-10 98 /min [facility] Arterial blood 14:31:00 [facility] by Pulse oximetry Branch Systolic blood 2021-03-03 132 mm[Hg] University of pressure 17:20:00 [facility] Diastolic blood 2021-03-03 94 mm[Hg] University o f pressure 17:20:00 [facility] Heart rate 2021-03-03 73 /min University of 17:20:00 [facility] Body temperature 2021-03-03 36.17 Tami University of 17:20:00 [facility] Respiratory rate 2021-03-03 20 /min University of 17:20:00 [facility] Oxygen saturation 2021-03-03 95 /min University of in Arterial blood 17:20:00 [facility] by Pulse oximetry Branch Body height 2021-03-01 170 cm University of 02:44:00 [facility] Body weight 2021-03-01 127 kg University of 02:44:00 [facility] BMI 2021-03-01 43.94 kg/m2 University of 02:44:00 [facility] Systolic blood 2021-02-02 137 mm[Hg] University of pressure 00:20:00 [facility] Diastolic blood 2021-02-02 84 mm[Hg] University o f pressure 00:20:00 [facility] Heart rate 2021-02-02 80 /min University of 00:20:00 [facility] Respiratory rate 2021-02-02 16 /min University of 00:20:00 [facility] Oxygen saturation 2021-02-02 97 /min [place] of in Arterial blood 00:20:00 [facility] by Pulse oximetry [place] Body temperature 2021-02-01 37.28 Tami University of 23:52:00 [facility] Body height 2021-02-01 172.7 cm University of 23:52:00 [facility] Body weight 2021-02-01 120.203 kg University of 23:52:00 [facility] BMI 2021-02-01 40.29 kg/m2 University of 23:52:00 [facility] Systolic blood 2021-01-18 184 mm[Hg] Just got done University o f pressure 14:52:00 drinking a [facility] Diastolic blood 2021-01-18 103 mm[Hg] Just got done University of pressure 14:52:00 drinking a [facility] Heart rate 2021-01-18 71 /min University of 14:52:00 [facility] Body temperature 2021-01-18 36.78 Tami University of 14:52:00 [facility] Respiratory rate 2021-01-18 18 /min University of 14:52:00 [facility] Branch Body weight 2021-01-18 124.739 kg University of 14:52:00 [facility] Branch BMI 2021-01-18 43.07 kg/m2 University of 14:52:00 [facility] Branch Oxygen saturation 2021-01-18 100 /min University of in Arterial blood 14:52:00 [place] Medi alison by Pulse oximetry Branch Systolic blood 2020-07-02 140 mm[Hg] University of pressure 14:31:00 [facility] Branch Diastolic blood 2020-07-02 99 mm[Hg] University o f pressure 14:31:00 [facility] Branch Heart rate 2020-07-02 66 /min University of 14:29:00 [facility] Body temperature 2020-07-02 36.83 Tami University of 14:29:00 [facility] Branch Respiratory rate 2020-07-02 18 /min University of 14:29:00 [facility] Body height 2020-07-02 170.2 cm University of 14:29:00 [facility] Body weight 2020-07-02 124.739 kg University of 14:29:00 [facility] BMI 2020-07-02 43.07 kg/m2 University of 14:29:00 [facility] Oxygen saturation 2020-07-02 97 /min University of in Arterial blood 14:29:00 [place] Medi alison by Pulse oximetry Branch Systolic blood 2020-07-02 140 mm[Hg] University of pressure 14:31:00 [facility] Branch Diastolic blood 2020-07-02 99 mm[Hg] University o f pressure 14:31:00 [facility] Heart rate 2020-07-02 66 /min University of 14:29:00 [facility] Body temperature 2020-07-02 36.83 Tami University of 14:29:00 [facility] Branch Respiratory rate 2020-07-02 18 /min University of 14:29:00 [facility] Branch Body height 2020-07-02 170.2 cm University of 14:29:00 [facility] Body weight 2020-07-02 124.739 kg University of 14:29:00 [facility] BMI 2020-07-02 43.07 kg/m2 University of 14:29:00 [facility] Oxygen saturation 2020-07-02 97 /min University of in Arterial blood 14:29:00 [place] Medi alison by Pulse oximetry Branch Systolic blood 2020-02-11 131 mm[Hg] University of pressure 14:15:00 [facility] Diastolic blood 2020-02-11 85 mm[Hg] University o f pressure 14:15:00 [facility] Heart rate 2020-02-11 73 /min University of 14:15:00 [facility] Body temperature 2020-02-11 37.17 Tami University of 14:15:00 [facility] Respiratory rate 2020-02-11 20 /min University [facility] 14:15:00 [facility] Body height 2020-02-11 170.2 cm University of 14:15:00 [facility] Body weight 2020-02-11 120.203 kg University of 14:15:00 [facility] BMI 2020-02-11 41.50 kg/m2 University of 14:15:00 [facility] Oxygen saturation 2020-02-11 96 /min University of in Arterial blood 14:15:00 [facility] alison by Pulse oximetry Branch Systolic blood 2020-02-11 131 mm[Hg] University of pressure 14:15:00 [facility] Diastolic blood 2020-02-11 85 mm[Hg] University o f pressure 14:15:00 [facility] Heart rate 2020-02-11 73 /min University of 14:15:00 [facility] Body temperature 2020-02-11 37.17 Tami University of 14:15:00 [facility] Respiratory rate 2020-02-11 20 /min University of 14:15:00 [facility] Body height 2020-02-11 170.2 cm University of 14:15:00 [facility] Body weight 2020-02-11 120.203 kg University of 14:15:00 [facility] BMI 2020-02-11 41.50 kg/m2 University of 14:15:00 [facility] Oxygen saturation 2020-02-11 96 /min University of in Arterial blood 14:15:00 [facility] by Pulse oximetry Branch Procedures Procedure Date / Time Performing Clinician Source Performed WORKERS COMPENSATION 2021-03-10 05:01:00 Doctor Unassigned, [facility] [place] Medical Branch BASIC METABOLIC PANEL 2021-03-03 08:44:00 Pamela Lindsey [facility] (NA, K, CL, CO2, GLUCOSE, Medica l Branch BUN, CREATININE, CA) CBC WITH DIFF 2021-03-03 08:44:00 Pamela Lindsey [place] o f [facility] COMP. METABOLIC PANEL 2021-03-02 08:30:00 Pamela Lindsey [facility] ([id number]) Medical [place] CBC WITH DIFF 2021-03-02 08:30:00 Conchita Lindseyherine [facility] FECES CULTURE 2021-03-01 19:10:00 Suki [facility] OCCULT (GUAIAC) BLOOD 2021-03-01 19:10:00 Suki [facility] FECAL LEUKOCYTES 2021-03-01 19:10:00 Suki [facility] LIPID PANEL ([id number])(TOTAL 2021-03-01 07:28:00 Shayan Chris [facility] CHOLESTEROL, [facility] TRIGLYCERIDES, HDL) GLYCOSYLATED HEMOGLOBIN 2021-03-01 07:28:00 Shayan [facility] (A1C) [facility] HEPATITIS B SURFACE 2021-03-01 07:28:00 Shayan [facility] ANTIBODY [facility] HEPATITIS B SURFACE 2021-03-01 07:28:00 Shayan [facility] ANTIGEN [facility] HCV ANTIBODY 2021-03-01 07:28:00 Shayan [facility] HAV ANTIBODY (IGG AND 2021-03-01 07:28:00 [facility] IGM) [facility] HEPATIC FUNCTION PANEL 2021-03-01 07:03:00 Shayan [facility] ([id number]) (ALB,T.PRO,BILI Medical Branch T,BU/BC,ALT,AST,ALK PHOS) BASIC METABOLIC PANEL 2021-03-01 07:03:00 Shayan [facility] (NA, K, CL, CO2, GLUCOSE, Medica l Branch BUN, CREATININE, CA) CBC WITH DIFF 2021-03-01 07:03:00 Shayan [facility] PROTHROMBIN TIME / INR 2021-03-01 07:03:00 [facility] 2021-03-01 07:03:00 Shayan [facility] THRMPLAS PENNY Medical Branch COVID-19 (ID NOW RAPID 2021-02-28 23:45:00 Campos Bermudez [facility] TESTING) Medical Branch LAB ONLY COVID 2021-02-28 23:45:00 Campos Bermudez [facility] INTERPRETATION [facility] CT ABDOMEN PELVIS W 2021-02-28 21:59:05 Campos Bermudez [facility] CONTRAST Medical Branch CBC WITH DIFF 2021-02-28 21:23:00 Campos Bermudez [facility] URINALYSIS 2021-02-28 21:23:00 Aidan Campos [facility] LIPASE 2021-02-28 21:22:00 Aidan [facility] HEPATIC FUNCTION PANEL 2021-02-28 21:22:00 Campos Bermudez [facility] ([id number]) (ALB,T.PRO,BILI Medical Branch T,BU/BC,ALT,AST,ALK PHOS) BASIC METABOLIC PANEL 2021-02-28 21:22:00 Campos Bermudez [facility] (NA, K, CL, CO2, GLUCOSE, Medica l Branch BUN, CREATININE, CA) CONSENT/REFUSAL FOR 2021-02-28 20:18:27 Doctor Dane [facility] DIAGNOSIS AND TREATMENT [place] Medical Branch LIPASE 2021-02-02 00:14:00 Brenda Cristobal [facility] MAGNESIUM 2021-02-02 00:14:00 Brenda Cristobal [facility] COMP. METABOLIC PANEL 2021-02-02 00:14:00 Brenda Cristobal [facility] ([id number]) Medical Branch CBC WITH DIFF 2021-02-02 00:14:00 Brenda Cristobal [facility] CONSENT/REFUSAL FOR 2021-02-01 23:47:04 Doctor Dane [facility] DIAGNOSIS AND TREATMENT [place] Medical Branch CONSENT/REFUSAL FOR 2021-01-18 14:48:47 Doctor Dane [facility] DIAGNOSIS AND TREATMENT [place] Medical [facility] Encounters Start End Encounter Admission Attending Care Care Encounter Source Date/Time Date/Time Type Type Clinicians Facility Department ID 2021-06-27 Outpatient [facility] [id number] Univers 10:31:32 HAWA [facility] 2021-06-27 Emergency [facility] [id number] Univers 06:04:08 ity of [facility] 2021-06-26 Emergency [facility] [id number] Univers 23:59:53 ity of [facility] 2021-06-26 Emergency [facility] [id number] Univers 21:06:42 ity [facility] 2021-05-02 2021-05-02 Telephone RANULFO Hughes [id number] Univers 00:00:00 00:00:00 Radha RAMIREZ [id number] i ty of [facility] 4.2.7.2.686 Aron as [phone] [address] 2021-05-01 2021-05-01 Laboratory Only, Ang Db Test [facility] 1.2.8 40.114 [id number] Univers 19:42:58 19:52:58 Only Enrique Thorne [facility] [id number] ity [facility] [id number] Aron as Cassius?Blea [phone] [address] Medical Office Building 2021-05-01 2021-05-01 Outpatient [facility] [id number] Univers 19:40:00 19:40:00 [id number]01 2021-05-01 [facility] [id number] Univers 19:40:00 19:40:00 ENRIQUE [facility] 2021-04-15 2021-04-15 Outpatient [facility] [id number] Univers 08:30:00 08:30:00 [id number] [facility] 2021-04-15 2021-04-15 Outpatient [facility] [id number] Univers 08:30:00 08:30:00 HAWA [facility] 2021-04-15 2021-04-15 Telephone Everardo [facility] [id number] Univers 00:00:00 00:00:00 Hawa Sharpe [id number] i [place] [phone] Tn dical nal 188 [facility] 2021-03-14 2021-03-14 Prep For [facility] 1.2.840.114 [id number] Univers 00:00:00 00:00:00 Surgery Peg [place] [id number] [place] [phone] Tn dical nal 204 [facility] 2021-03-10 2021-03-10 Office [facility] [id number] Univers 08:49:19 09:34:06 Visit Hawa Sharpe 350.1.13.10 i ty [place] [phone] [facility] 188 [facility] 2021-03-10 2021-03-10 Outpatient [facility] [id number] Univers 08:30:00 08:30:00 HAWA [id number] [facility] 2021-03-10 2021-03-10 Outpatient R [facility] [id number] Univers 08:30:00 08:30:00 HAWA [facility] 2021-03-10 2021-03-10 Orders Doctor RANULFO 1.2.840.114 [id number] Univers 00:00:00 00:00:00 Only Unassigned, ASHLEY [id number] ity of [place] [facility] 4.2.7.2.686 Aron as [phone] [address] 2021-03-07 2021-03-07 Telephone [facility] 1.2.840.114 [id number] Univers 00:00:00 00:00:00 Hawa Sharpe 350.1.13.10 i [place] [phone] Tn dical nal 188 [facility] 2021-03-04 2021-03-04 Transition Amy Villafana 1.2.840.114 [id number] Univers 00:00:00 00:00:00 of Care Marisel Cabreray 350.1.13.10 i ty of [place] 4.2.7.2.686 [place] [phone] [facility] 403 Branch 2021-02-28 2021-03-03 Hospital Campos Bermudez [facility] 1.2.840.1 [id number] Univers 15:32:00 15:20:00 Encounter Chris Downey 350.1.13.10 ity of JuanalexaMonty [place] 4.2.7.2.686 [facility] [phone] [facility] 081 Branch 2021-02-01 2021-02-01 [facility] [id number] Univers 18:54:00 20:11:00 Brenda Sharpe 350.1.13.10 i ty of [place] 4.2.7.2.[address] [facility] [phone] [facility] 084 [place] 2021-01-18 2021-01-18 Emergency Singer [facility] [id number] Univers 09:51:00 10:57:00 Corona Sharpe 350.1.13.10 i ty of [place] 4.2.7.2.686 [facility] [phone] [place] [id number] [place] 2021-01-18 2021-01-18 Orders Doctor RANULFO 1.2.840.114 [id number] Univers 00:00:00 00:00:00 Only Unassigned, ASHLEY 350.1.13.10 ity of [place] [facility] 4.2.7.2.686 Aron as [phone] [facility] 009 Branch 2020-07-02 2020-07-02 Urgent Provider, [facility] Urgent Care [facility] 1.2.840.114 [id number] Univers 08:10:50 08:30:50 Care Brenda Hill 350.1.13.10 ity of [place] 4.2.7.2.686 Aron as Mel [phone] [facility] 044 Branch Office Building One 2020-07-02 2020-07-02 Urgent Provider, [facility] [id number] 08:10:50 08:30:50 Care R [facility] 350.1.13.10 Care [place] 4.2.7.2.686 Professio [phone] [place] [address] Office [address] One 2020-07-02 2020-07-02 Outpatient R [facility] [id number] Univers 08:00:00 08:00:00 [id number] [facility] 2020-07-02 2020-07-02 [facility] [id number] Univers 08:00:00 08:00:00 BRENDA [facility] 2020-02-11 2020-02-11 Urgent Pob1, Acute Care Clinic [facility] 1. 2.840.114 [id number] Univers 09:04:57 09:42:48 [facility].10 [facility] 4.2.7.2.686 Aron as Professio [phone] Tn dical [address] Office [facility] 2020-02-11 2020-02-11 Urgent Pob1, Acute [facility] 1.2.840.114 [id number] 09:04:57 09:42:48 [facility] 350.1.13.10 [place] 4.2.7.2.686 Professio [phone] [place] [address] Office [facility] 2020-02-11 2020-02-11 Outpatient [facility] [id number] Univers 09:00:00 09:00:00 JAIMEE [facility] Results Test Description Test Time Test Comments Results Result Comments Source BASIC METABOLIC PANEL (NA, K, CL, CO2, GLUCOSE, BUN, 2021-02 12:00:45 CREATININE, CA) Test Item Value Reference Range Interpretation Comme nts NA (test code = 7867805690) 137 mmol/L 135-145 K (test code = 8924541777) 4.0 mmol/L 3.5-5.0 CL (test code = 6994842128) 105 mmol/L 98-108 CO2 TOTAL (test code = 29 mmol/L 23-31 3207966655) AGAP (test code = 4936838798) 2-16 BUN (test code = 3085856048) 13 mg/dL 7-23 GLUCOSE (test code = 4440244152) 95 mg/dL 70-110 CREATININE (test code = 0.74 mg/dL 0.60-1.25 9218065022) CALCIUM (test code = 5701020026) 9.2 mg/dL 8.6-10.6 eGFR (test code = 8900663742) mL/min/1.73m2 MERVAT (test code = MERVAT) Association [...] or urine or abnormalities in imaging tests). [facility] WITH [id number] 11:43:23 Test Item Value Reference Range Interpretation Comments WBC (test code = See_Comment H [Automated 7247-2) message] The system which generated this result transmit lien reference range : 4.20 - 10.70 10*3/?L. The reference range was not used to interpret this result as normal/abnormal . RBC (test code = See_Comment [Automated 419-8) message] The system which generated this result [...] RDW-SD (test code = 39.7 fL 38.5-51.6 82619-0) RDW-CV (test code = 13.2 % 12.1-15.4 788-0) PLT (test code = See_Comment [Automated 777-3) message] The system which generated this result transmit lien reference range : 150 - 328 10*3/ ?L. The reference range was not u sed to interpret th is result as normal/abnormal . MPV (test code = 9.8 fL 9.8-13.0 08316-1) NRBC/100 WBC (test See_Comment [Automat ed code = 9218159906) message] The system which generated this result transmit lien reference range : 0.0 - 10.0 /100 WBCs. The reference range was not used to interpret this result as normal/abnormal . NRBC x10^3 (test code <0.01 See_Comment [Auto mated = 4008670922) message] The system which generated this result transmit lien reference range : 10*3/?L. The reference range was not used to interpret this result as normal/abnormal . GRAN MAT (NEUT) % 83.6 % (test code = 770-8) IMM GRAN % (test code 0.60 % = 7582001652) LYMPH % (test code = 10.6 % 736-9) MONO % (test code = 4.9 % 5905-5) EOS % (test code = 0.0 % 713-8) BASO % (test code = 0.3 % 706-2) GRAN MAT x10^3(ANC) 13.34 10*3/uL 1.99-6.95 H (test code = 3131616790) IMM GRAN x10^3 (test 0.10 10*3/uL 0.00-0.06 H code = 9657903361) LYMPH x10^3 (test code 1.69 10*3/uL 1.09-3.23 = 731-0) MONO x10^3 (test code 0.78 10*3/uL 0.36-1.02 = 742-7) EOS x10^3 (test code = <0.03 0.06-0.53 L 711-2) BASO x10^3 (test code 0.04 10*3/uL 0.01-0.09 = 704-7) Lab Interpretation Abnormal (test code = 59211-0) [facility] [id number] 19:22:00 Test Item Value Reference Range Interpretation Comments Occult (guaiac) Blood (test code = Negative Negative 2335-8) Lab Interpretation (test code = Normal 37674-6) [facility] COVID [id number] 15:53:57COVID DMT InterpretationInterpretation/Recommendations:Molecular NAAT Tests for Active [...] the patient has produced antibodies to the HJDS-BaE-3njnde. However, some patients may take longer to develop detectable antibodies, while some patients who were infected with SARS-CoV-2 may never develop antibodies. While antibodies to SARS-CoV-2 may provide some degree of immunity, at this time the strength and duration of the antibody response is unknown. Interpretation Result Comments:These interpretation comments are based upon all COVID-19 testing the patient has had at [facility], including molecular NAAT testing (more commonly known as PCR testing and Rapid ID Now testing) andantibody testing. It does not take into account any testing that a patient has had outside of the [facility] medical record. [facility] LABORATORY SERVICESCOVID UvvitqfTBNY-TpH-4 NAAT (no units) ? ? Date ? Value ? 07/02/2020 ? Not Detected ? ? ? 02/11/2020 ? Positive (A) ? SARS-CoV-2 Rapid ID NOW (no units) ? ? Date ? Value ? 02/28/2021 ? Not Detected ? [facility] METABOLIC PANEL (10008)2021-03-02 09:26:09 Test Item Value Reference Range Interpretation Comments NA (test code = 136 mmol/L 135-145 9520479230) K (test code = 4.1 mmol/L 3.5-5.0 9288346419) CL (test code = 103 mmol/L 98-108 2200086603) CO2 TOTAL (test code = 27 mmol/L 23-31 8940284665) AGAP (test code = 2-16 5704598759) BUN (test code = 17 mg/dL 7-23 6604403366) GLUCOSE (test code = 128 mg/dL 70-110 H 8491937807) CREATININE (test code = 0.79 mg/dL 0.60-1.25 9819722950) TOTAL BILI (test code = 0.7 mg/dL 0.1-1.7 4266732470) CALCIUM (test code = 9.3 mg/dL 8.6-10.6 3373423996) T PROTEIN (test code = 6.6 g/dL 6.3-8.2 5660822584) ALBUMIN (test code = 3.9 g/dL 3.5-5.0 0943363386) ALK PHOS (test code = 77 U/L 34-122 9919320492) ALTv (test code = 57 U/L 5-50 H 1742-6) AST(SGOT) (test code = 29 U/L 13-40 5741660824) eGFR (test code = mL/min/1.73m2 4670462430) MERVAT (test code = MERVAT) Association of [...] tests). Lab Interpretation Abnormal (test code = 77012-9) [facility] WITH [id number] 08:46:58 Test Item Value Reference Range Interpretation Comments WBC (test code = See_Comment H [Automated 3490-2) message] The system which generated this result [...] RDW-SD (test code = 39.4 fL 38.5-51.6 03213-1) RDW-CV (test code = 13.2 % 12.1-15.4 788-0) PLT (test code = See_Comment [Automated 777-3) message] The system which generated this result transmit lien reference range : 150 - 328 10*3/ ?L. The reference range was not u sed to interpret th is result as normal/abnormal . MPV (test code = 9.4 fL 9.8-13.0 L 42152-8) NRBC/100 WBC (test See_Comment [Automat ed code = 8405594357) message] The system which generated this result transmit lien reference range : 0.0 - 10.0 /100 WBCs. The reference range was not used to interpret this result as normal/abnormal . NRBC x10^3 (test code <0.01 See_Comment [Auto mated = 2466006303) message] The system which generated this result transmit lien reference range : 10*3/?L. The reference range was not used to interpret this result as normal/abnormal . GRAN MAT (NEUT) % 83.3 % (test code = 770-8) IMM GRAN % (test code 0.30 % = 1892971948) LYMPH % (test code = 11.0 % 736-9) MONO % (test code = 5.0 % 5905-5) EOS % (test code = 0.1 % 713-8) BASO % (test code = 0.3 % 706-2) GRAN MAT x10^3(ANC) 12.88 10*3/uL 1.99-6.95 H (test code = 4975683055) IMM GRAN x10^3 (test 0.04 10*3/uL 0.00-0.06 code = 3483886861) LYMPH x10^3 (test code 1.70 10*3/uL 1.09-3.23 = 731-0) MONO x10^3 (test code 0.78 10*3/uL 0.36-1.02 = 742-7) EOS x10^3 (test code = <0.03 0.06-0.53 L 711-2) BASO x10^3 (test code 0.05 10*3/uL 0.01-0.09 = 704-7) Lab Interpretation Abnormal (test code = 58202-1) [facility] CenterFECAL [id number] 00:37:23 Test Item Value Reference Range Interpretation Comments Fecal Leukocytes (test code = Positive Negative A 3429908650) Lab Interpretation (test code = Abnormal 61731-8) [facility] Center[facility]AT[facility]IS B SURFACE [id number] 17:59:51 Test Item Value Reference Range Interpretation Comments HBsAB (test code = Negative 1267065242) HBsAb mIU/mL Semi-Quantitative (test code = 8345043948) MERVAT (test code = Interpretation: MERVAT) ?Hepatitis B Surface Antibody ? Negative - Patient is considered to be not immune to infection with HBV. ? ? Positive - Anti-HBs detected at greater than or equal to 12 mIU/mL. ?Patient is considered to be immune to infection with HBV. ? [facility] ANTIBODY (IGG AND IGM)2021-03-01 17:59:51 Test Item Value Reference Range Interpretation Comments HAV Total (test code = 4352613848) Negative HAVT Semi-Quantitative (test code = 6389333601) [facility] CenterHCV [id number] 17:59:50 Test Item Value Reference Range Interpretation Comments HCV Ab (test code = 94984-4) Negative HCV Semi-Quantitative (test code = 51973-8) [facility] CenterHEPAT[facility]IS B SURFACE [id number] 17:43:34 Test Item Value Reference Range Interpretation Comments HBsAg Semi-Quantitative (test code = Negative Negative 5195-3) [facility] CenterCBC with [id number] 11:40:35 Test Item Value Reference Range Interpretation Comments WBC (test code = See_Comment H [Automated 8990-2) message] The sy stem which generated this result transmitted reference range : 4.20 - 10.70 10*3/?L. The reference range was not used to interpret this result as normal/abnormal . RBC (test code = See_Comment [Automated 229-8) message] The sy stem which generated this [...] RDW-SD (test code = 38.5 fL 38.5-51.6 51960-9) RDW-CV (test code = 12.9 % 12.1-15.4 788-0) PLT (test code = See_Comment [Automated 777-3) message] The sy stem which generated this result transmitted reference range : 150 - 328 10*3/ ?L. The reference r catalina was not used to interpret this result as normal/abnormal . MPV (test code = 10.2 fL 9.8-13.0 38530-5) IPF % (test code = 2.4 % 1.2-10.7 Platelet count 1870978754) measured by fluorescence method. NRBC/100 WBC (test See_Comment [Automat ed code = 4324399329) message] The system which generated this result transmitted reference range : 0.0 - 10.0 /100 WBCs. The refer ence range was not u sed to interpret th is result as normal/abnormal . NRBC x10^3 (test code <0.01 See_Comment [Auto mated = 0221839149) message] The s ystem which generated this result transmitted reference range : 10*3/?L. The reference range was not used to interpret this result as normal/abnormal . GRAN MAT (NEUT) % 91.2 % (test code = 770-8) IMM GRAN % (test code 0.50 % = 1431996153) LYMPH % (test code = 7.2 % 736-9) MONO % (test code = 0.9 % 5905-5) EOS % (test code = 0.0 % 713-8) BASO % (test code = 0.2 % 706-2) GRAN MAT x10^3(ANC) 13.95 10*3/uL 1.99-6.95 H (test code = 7589126856) IMM GRAN x10^3 (test 0.07 10*3/uL 0.00-0.06 H code = 1295690494) LYMPH x10^3 (test 1.10 10*3/uL 1.09-3.23 code [...] . Lab Interpretation Abnormal (test code = 84034-4) [facility] CenterLIPID PANEL (40773)(TOTAL CHOLESTEROL, TRIGLYCERIDES, HDL)2021-03-01 10:18:25 Test Item Value Reference Range Interpretation Comments CHOL (test code = 187 mg/dL 120-200 4744024853) HDL (test code = 38 mg/dL >40 L 8538837535) HDLC RATIO (test code = See_Comment [Au tomated message] 8416280687) The system Samesurf generated this result transmit lien reference range : <=5.0. The refe rence range was not u sed to interpret th is result as normal/abnormal . TRIG (test code = 91 mg/dL 30-170 5881882050) LDL CHOL (test code = 131 mg/dL See_Comment [Auto mated message] 67880-9) The system S[employer] generated this result transmit lien reference range : <=160. The refe rence range was not u sed to interpret th is result as normal/abnormal . VLDL (test code = 18 mg/dL 5-60 9048346160) Lab Interpretation (test Abnormal code = 59721-9) [facility] Metabolic Panel (NA, K, CL, CO2, GLUCOSE, BUN, CREATININE, CA)2021-03-01 10:17:39 Test Item Value Reference Range Interpretation Comments NA (test code = 138 mmol/L 135-145 8918370514) K (test code = 4.2 mmol/L 3.5-5.0 3703848288) CL (test code = 102 mmol/L 98-108 4100056736) CO2 TOTAL (test code = 27 mmol/L 23-31 2216888232) AGAP (test code = 2-16 6775841020) BUN (test code = 15 mg/dL 7-23 6906309236) GLUCOSE (test code = 144 mg/dL 70-110 H 1414436192) CREATININE (test code = 0.66 mg/dL 0.60-1.25 0971266557) CALCIUM (test code = 9.8 mg/dL 8.6-10.6 6232181387) eGFR (test code = mL/min/1.73m2 8575016961) MERVAT (test code = MERVAT) Association of [...] tests). Lab Interpretation Abnormal (test code = 94229-0) [facility] CenterHEPAT[facility] FUNCTION PANEL (21547) (ALB,T.PRO,BILI T,BU/BC,ALT,AST,ALK PHOS)2021-03-01 10:17:38 Test Item Value Reference Range Interpretation Comments TOTAL BILI (test code = 4998571520) 0.6 mg/dL 0.1-1.1 BILI UNCON (test code = 3228656055) 0.4 mg/dL 0.1-1.1 BILI CONJ (test code = 5442678776) 0.0 mg/dL 0.0-0.3 T PROTEIN (test code = 8440057063) 7.5 g/dL 6.3-8.2 ALBUMIN (test code = 8981107537) 4.2 g/dL 3.5-5.0 ALK PHOS (test code = 1673349786) 88 U/L 34-122 ALTv (test code = 1742-6) 76 U/L 5-50 H AST(SGOT) (test code = 4547253235) 41 U/L 13-40 H Lab Interpretation (test code = Abnormal 55313-8) [facility] CenterGLYCOSYLATED HEMOGLOBIN (A1C)2021-03-01 09:37:27 Test Item Value Reference Range Interpretation Comments HGB A1C (test code = 5.8 % 4.0-5.7 H 4548-4) MERVAT (test code = MERVAT) Reference RangesNormal: <5.7%Prediabetes: 5.7 - 6.4%Diabetes: > 6.5% Lab Interpretation (test Abnormal code = 42410-8) [facility] CenteraPTT2021-07-06 09:25:53 Test Item Value Reference Range Interpretation Comments APTT Patient (test See_Comment [Automat ed code = 3173-2) message] The system which generated this result transmitted reference range : 23 - 38 Seconds . The reference range was not used to interpr et this result as normal/abnormal . MERVAT (test code = MERVAT) The [facility] patient population mean normal value for aPTT is 30 seconds. Lab Interpretation Normal (test code = 41012-8) [facility] CenterProthrombin Time / [id number] 09:23:36 Test Item Value Reference Range Interpretation [...] tions. Lab Interpretation (test Normal code = 97395-7) [facility] CenterCOVID[facility] (ID NOW RAPID TESTING)2021-03-01 00:25:13 Test Item Value Reference Range Interpretation Comments SARS-CoV-2 Rapid ID NOW Not Detected Not Detected (test code = 82248-6) MERVAT (test code = MERVAT) ID NOW COVID-19 Assay is an isothermal nucleic acid amplification test intended for the qualitative detection of nucleic acid from SARS-CoV-2 viral RNA in nasopharyngeal (KICK PRESS SETTER) specimens. It is used under Emergency Use [...] indicated. Lab Interpretation Normal (test code = 75496-2) [facility] CenterCT ABDOMEN PELVIS W [id number] 00:23:52 Acute inflammation involving the cecum and [...] reviewed this study and agree with theabove report.[facility] (NA, K, CL, CO2, GLUCOSE, BUN, CREATININE, CA)2021-02-28 21:48:21 Test Item Value Reference Range Interpretation Comments NA (test code = 142 mmol/L 135-145 3909926919) K (test code = 3.7 mmol/L 3.5-5.0 0630418061) CL (test code = 103 mmol/L 98-108 1716884684) CO2 TOTAL (test code = 32 mmol/L 23-31 H 1231728221) AGAP (test code = 2-16 6809625286) BUN (test code = 16 mg/dL 7-23 3129879851) GLUCOSE (test code = 109 mg/dL 70-110 5932952534) CREATININE (test code = 0.82 mg/dL 0.60-1.25 5020488757) CALCIUM (test code = 9.5 mg/dL 8.6-10.6 2599334117) eGFR (test code = mL/min/1.73m2 0341239745) MERVAT (test code = MERVAT) Association of [...] tests). Lab Interpretation Abnormal (test code = 48772-6) [facility] CenterHep[facility] Function Panel (ALB, T.PRO, BILI T, BU/BC, ALT, AST, ALK PHOS)2021-02-28 21:48:20 Test Item Value Reference Range Interpretation Comments TOTAL BILI (test code = 1230514445) 0.5 mg/dL 0.1-1.1 BILI UNCON (test code = 9603905200) 0.3 mg/dL 0.1-1.1 BILI CONJ (test code = 5200953094) 0.0 mg/dL 0.0-0.3 T PROTEIN (test code = 0921184076) 7.8 g/dL 6.3-8.2 ALBUMIN (test code = 2225784554) 4.2 g/dL 3.5-5.0 ALK PHOS (test code = 3155681466) 95 U/L 34-122 ALTv (test code = 1742-6) 86 U/L 5-50 H AST(SGOT) (test code = 8799260511) 50 U/L 13-40 H Lab Interpretation (test code = Abnormal 64609-4) [facility] CenterLipase [id number] 21:47:55 Test Item Value Reference Range Interpretation Comments LIPASE (test code = 5083236307) 192 U/L 0-220 Lab Interpretation (test code = Normal 80045-4) [facility] CenterUrinalysis2021-07-05 21:47:39 Test Item Value Reference Range Interpretation Comments APPEARANCE (test code Clear Clear = 7279707479) COLOR (test code = Yellow Yellow 2361978866) PH (test code = 4.8-8.0 8452373746) SP GRAVITY (test code 1.003-1.030 = 5275683995) GLU U QUAL (test code Normal Normal = 8633417632) BLOOD (test code = Negative Negative 4556002854) KETONES (test code = Negative Negative 8906799200) PROTEIN (test code = Negative Negative 2887-8) UROBILIN (test code = Normal Normal 5240808683) BILIRUBIN (test code = Negative Negative 3627342091) NITRITE (test code = Negative Negative 0262044109) LEUK SHAREE (test code Negative Negative = 2864475453) RBC/HPF (test code = See_Comment [Autom ated message] 2430755907) The system S[employer] generated this result transmitted ref erence range: 0 - 3 HP F. The reference range was not used to interpr et this result as normal/abnormal . WBC/HPF (test code = See_Comment [Autom ated message] 5599958525) The system [employer] generated this result transmitted ref erence range: 0 - 5 HP F. The reference range was not used to interpr et this result as normal/abnormal . BACTERIA (test code = Negative Negative 9264199414) SQ EPITH (test code = <1 HPF 4397452802) [facility] with [id number] 21:37:14 Test Item Value Reference Range Interpretation [...] RDW-SD (test code = 40.2 fL 38.5-51.6 54271-0) RDW-CV (test code = 13.2 % 12.1-15.4 788-0) PLT (test code = See_Comment [Automated 777-3) message] The sy stem which generated this result transmitted reference range : 150 - 328 10*3/ ?L. The reference r catalina was not used to interpret this result as normal/abnormal . MPV (test code = 9.6 fL 9.8-13.0 L 14154-2) NRBC/100 WBC (test See_Comment [Automat ed code = 3915012232) message] The system which generated this result transmitted reference range : 0.0 - 10.0 /100 WBCs. The refer ence range was not u sed to interpret th is result as normal/abnormal . NRBC x10^3 (test code <0.01 See_Comment [Auto mated = 5022411357) message] The s ystem which generated this result transmitted reference range : 10*3/?L. The reference range was not used to interpret this result as normal/abnormal . GRAN MAT (NEUT) % 74.7 % (test code = 770-8) IMM GRAN % (test code 0.50 % = 0910813947) LYMPH % (test code = 17.6 % 736-9) MONO % (test code = 5.7 % 5905-5) EOS % (test code = 0.9 % 713-8) BASO % (test code = 0.6 % 706-2) GRAN MAT x10^3(ANC) 8.24 10*3/uL 1.99-6.95 H (test code = 5068642965) IMM GRAN x10^3 (test 0.05 10*3/uL 0.00-0.06 code = 5797175105) LYMPH x10^3 (test code 1.94 10*3/uL 1.09-3.23 = 731-0) MONO x10^3 (test code 0.63 10*3/uL 0.36-1.02 = 742-7) EOS x10^3 (test code = 0.10 10*3/uL 0.06-0.53 711-2) BASO x10^3 (test code 0.07 10*3/uL 0.01-0.09 = 704-7) Lab Interpretation Abnormal (test code = 55734-8) [facility] CenterCOM. METABOLIC PANEL (70993)2021-02-02 00:42:09 Test Item Value Reference Range Interpretation Comments NA (test code = 139 mmol/L 135-145 1770773349) K (test code = 3.8 mmol/L 3.5-5.0 8760530459) CL (test code = 101 mmol/L 98-108 7381658238) CO2 TOTAL (test code = 30 mmol/L 23-31 8809443656) AGAP (test code = 2-16 7982566862) BUN (test code = 17 mg/dL 7-23 5253587480) GLUCOSE (test code = 93 mg/dL 70-110 2020372859) CREATININE (test code = 0.92 mg/dL 0.60-1.25 2577651648) TOTAL BILI (test code = 0.8 mg/dL 0.1-1.0 8945085744) CALCIUM (test code = 9.6 mg/dL 8.6-10.6 0109149869) T PROTEIN (test code = 7.9 g/dL 6.3-8.2 9684241345) ALBUMIN (test code = 4.5 g/dL 3.5-5.0 1107609880) ALK PHOS (test code = 95 U/L 34-122 0258392513) ALTv (test code = 104 U/L 5-50 H 1742-6) AST(SGOT) (test code = 55 U/L 13-40 H 4670805366) eGFR (test code = mL/min/1.73m2 8870810377) MERVAT (test code = MERVAT) Association of [...] tests). Lab Interpretation Abnormal (test code = 15994-1) [facility] CenterMAGNESIUM2021-06-09 00:42:09 Test Item Value Reference Range Interpretation Comments MAGNESIUM (test code = 7346762892) 2.0 mg/dL 1.7-2.4 Lab Interpretation (test code = Normal 23863-7) [facility] CenterLIPASE2021-06-09 00:41:48 Test Item Value Reference Range Interpretation Comments LIPASE (test code = 5315895598) 101 U/L 0-220 Lab Interpretation (test code = Normal 31831-1) [facility] WITH [id number] 00:33:27 Test Item Value Reference Range Interpretation Comments WBC (test code = See_Comment [Automated 1767-2) message] The sy stem which generated this result transmitted reference range : 4.20 - 10.70 10*3/?L. The reference range was not used to interpret this result as normal/abnormal . RBC (test code = See_Comment H [Automated 827-8) message] The sy stem which generated this [...] RDW-SD (test code = 39.3 fL 38.5-51.6 87494-0) RDW-CV (test code = 13.2 % 12.1-15.4 788-0) PLT (test code = See_Comment [Automated 777-3) message] The sy stem which generated this result transmitted reference range : 150 - 328 10*3/ ?L. The reference r catalina was not used to interpret this result as normal/abnormal . MPV (test code = 9.3 fL 9.8-13.0 L 56611-3) NRBC/100 WBC (test See_Comment [Automat ed code = 1745184994) message] The system which generated this result transmitted reference range : 0.0 - 10.0 /100 WBCs. The refer ence range was not u sed to interpret th is result as normal/abnormal . NRBC x10^3 (test code <0.01 See_Comment [Auto mated = 4785855162) message] The s ystem which generated this result transmitted reference range : 10*3/?L. The reference range was not used to interpret this result as normal/abnormal . GRAN MAT (NEUT) % 73.6 % (test code = 770-8) IMM GRAN % (test code 0.20 % = 5748049789) LYMPH % (test code = 18.7 % 736-9) MONO % (test code = 6.2 % 5905-5) EOS % (test code = 0.8 % 713-8) BASO % (test code = 0.5 % 706-2) GRAN MAT x10^3(ANC) 7.22 10*3/uL 1.99-6.95 H (test code = 6849823064) IMM GRAN x10^3 (test <0.03 0.00-0.06 code = 8814232835) LYMPH x10^3 (test code 1.84 10*3/uL 1.09-3.23 = 731-0) MONO x10^3 (test code 0.61 10*3/uL 0.36-1.02 = 742-7) EOS x10^3 (test code = 0.08 10*3/uL 0.06-0.53 711-2) BASO x10^3 (test code 0.05 10*3/uL 0.01-0.09 = 704-7) Lab Interpretation Abnormal (test code = 88462-6) [facility]"
[2022-05-29] MEDS ORDERED: ALBUTEROL 2.5 MG/3 ML NEB SOL ONE (18:44)
[2022-05-29] MEDS ORDERED: IPRATROPIUM BROM 0.5MG/2.5ML ONE (18:44)
[2022-05-29] MEDS ORDERED: BUDESONIDE 0.5 MG/2 ML NEB IH ONE (19:00)
--- NOTE | 2022-05-29 19:25 | RAD REPORT ---
EXAM DESCRIPTION: RAD - Chest Pa And Lat (2 Views) - 05/29/2022 6:59 pm CLINICAL HISTORY: DYSPNEA COMPARISON: Portable 05/16/2022 TECHNIQUE: Frontal and lateral views of the chest were obtained. FINDINGS: The lungs are clear. Heart size is normal and central vasculature is within normal limit s. No pleural effusion or pneumothorax seen. No acute bony finding noted. No aortic abnormality. IMPRESSION: No acute cardiopulmonary process. No significant change from comparison study.
--- NOTE | 2022-05-29 20:11 | EDPHYS ---
Physician Documentation [facility] Name: Zafar Guerin Jr Age: 36 yrs Sex: Male : 1985 Arrival Date: 05/29/2022 Time: 18:17 Bed 20 Private MD: ED Physician Elder Hancock HPI: 05/29 18:46 This 36 yrs old Male presents to ER via Ambulatory with complaints of Cough, snw Breathing Difficulty. 18:46 The patient or guardian reports airway noise, cough, difficulty breathing, flu snw symptoms. Onset: The symptoms/episode began/occurred gradually, 1 week(s) ago, and became worse today. Severity of symptoms: At their worst the symptoms were moderate, severe. Associated signs and symptoms: The patient has no apparent associated signs or symptoms. The patient has experienced similar episodes in the past, multiple times. The patient has been recently seen at the [facility] Emergency Department, a couple of weeks ago, for similar complaints was given a prescription for antibiotics, steroids and an inhaler. Historical: - Allergies: 18:29 Amoxicillin; ap3 18:29 Iodine (Hives); ap3 18:29 PENICILLINS; ap3 - PMHx: 18:29 Asthma; ap3 - PSHx: 18:29 ear tubes; ap3 - Immunization history:: Client reports having NOT received the Covid vaccine. - Social history:: Smoking status: Patient denies any tobacco usage or history of. ROS: 18:45 Eyes: Negative for injury, pain, redness, and discharge, ENT: Negative for injury, snw pain, and discharge, Neck: Negative for injury, pain, and swelling, Cardiovascular: Negative for chest pain, palpitations, and edema. 18:45 Abdomen/GI: Negative for abdominal pain, nausea, vomiting, diarrhea, and constipation, Back: Negative for injury and pain, : Negative for injury, bleeding, discharge, and swelling, MS/Extremity: Negative for injury and deformity, Skin: Negative for injury, rash, and discoloration, Neuro: Negative for headache, weakness, numbness, tingling, and seizure, Psych: Negative for depression, anxiety, suicide ideation, homicidal ideation, and hallucinations. 18:45 Constitutional: Positive for fatigue, malaise, poor PO intake. 18:45 Respiratory: Positive for cough, shortness of breath, wheezing. Exam: 18:45 Constitutional: This is a well developed, well nourished patient who is awake, alert, snw and in no acute distress. Head/Face: Normocephalic, atraumatic. Eyes: Pupils equal round and reactive to light, extra-ocular motions intact. Lids and lashes normal. Conjunctiva and sclera are non-icteric and not injected. Cornea within normal limits. Periorbital areas with no swelling, redness, or edema. ENT: Nares patent. No nasal discharge, no septal abnormalities noted. Tympanic membranes are normal and external auditory canals are clear. Oropharynx with no redness, swelling, or masses, exudates, or evidence of obstruction, uvula midline. Mucous membranes moist. Neck: Trachea midline, no thyromegaly or masses palpated, and no cervical lymphadenopathy. Supple, full range of motion without nuchal rigidity, or vertebral point tenderness. No Meningismus. Chest/axilla: Normal chest wall appearance and motion. Nontender with no deformity. No lesions are appreciated. Cardiovascular: Regular rate and rhythm with a normal S1 and S2. No gallops, murmurs, or rubs. Normal PMI, no JVD. No pulse deficits. 18:45 Abdomen/GI: Soft, non-tender, with normal bowel sounds. No distension or tympany. No guarding or rebound. No evidence of tenderness throughout. Back: No spinal tenderness. No costovertebral tenderness. Full range of motion. Skin: Warm, dry with normal turgor. Normal color with no rashes, no lesions, and no evidence of cellulitis. MS/ Extremity: Pulses equal, no cyanosis. Neurovascular intact. Full, normal range of motion. Neuro: Awake and alert, GCS 15, oriented to person, place, time, and situation. Cranial nerves II-XII grossly intact. Motor strength 5/5 in all extremities. Sensory grossly intact. Cerebellar exam normal. Normal gait. Psych: Awake, alert, with orientation to person, place and time. Behavior, mood, and affect are within normal limits. 18:45 Respiratory: mild respiratory distress is noted, Respirations: shallow respirations, tachypnea, Breath sounds: wheezing: expiratory is heard diffusely. Vital Signs: 18:27 BP 138 / 93; Pulse 107; Resp 18; Temp 98.9; Pulse Ox 100% ; Weight 142.88 kg; Height 5 ap3 ft. 8 in. (172.72 cm); 19:10 BP 121 / 77; Pulse 96; Resp 20; Pulse Ox 100% on Nebulizer Mask; Pain 0/10; jj7 20:15 BP 119 / 87; Pulse 107; Resp 19; Pulse Ox 100% on Nebulizer Mask; Pain 0/10; jj7 20:54 BP 120 / 76; Pulse 101; Resp 20; Pulse Ox 99% ; jj7 18:27 Body Mass Index 47.90 (142.88 kg, 172.72 cm) ap3 MDM: 18:45 Patient medically screened. snw 20:17 Data reviewed: vital signs, nurses notes. Data interpreted: Pulse oximetry: on room air snw is 100 %. Interpretation: normal. Counseling: I had a detailed discussion with the patient and/or guardian regarding: the historical points, exam findings, and any diagnostic results supporting the discharge/admit diagnosis, lab results, radiology results, the need for outpatient follow up, to return to the emergency department if symptoms worsen or persist or if there are any questions or concerns that arise at home. Special discussion: Based on the history and exam findings, there is no indication for further emergent testing or inpatient evaluation. I discussed with the patient/guardian the need to see the die keeper for further evaluation of the symptoms. 05/29 18:39 Order name: Flu snw 05/29 18:39 Order name: SARS-COV-2 RT PCR (Document "Date of Onset" if Symptomatic) snw 05/29 18:39 Order name: Chest Pa And Lat (2 Views) XRAY snw 05/29 19:25 Order name: RAD; Complete Time: 19:28 EDMS 05/29 19:37 Order name: Influenza Screen (A ; Complete Time: 19:38 EDMS 05/29 19:49 Order name: SARS-COV-2 RT PCR; Complete Time: 20:10 EDMS Administered Medications: 18:54 Drug: Albuterol - atroVENT (ipratropium) (3:1) (2.5 mg - 0.5 mg) 3 ml Route: Nebulizer; mb8 20:31 Follow up: Response: No adverse reaction; Wheezing diminished jj7 20:31 Drug: Pulmicort 1 mg/2 mL 1 mg Route: Inhalation; jj7 20:55 Drug: Tussionex Pennkinetic ER (chlorpheniramine-hydrocodone) Suspension 5 ml Route: PO;jj7 Disposition: 05/30 07:27 PA/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 I agree with assessment jr11 and care plan and confirm the diagnosis (es) above. Attestation: The patient's history, exam findings, diagnostics, and a summary of any interventions or procedures was reviewed in detail with Tsering LUNA. Disposition Summary: 05/29/22 20:11 Discharge Ordered Location: Home snw Condition: Stable snw Diagnosis - Unspecified asthma with (acute) exacerbation snw Followup: snw - With: Emergency Department - When: As needed - Reason: Worsening of condition Followup: snw - With: Private Physician - When: 2 - 3 days - Reason: Recheck today's complaints, Continuance of care, Re-evaluation by your physician Discharge Instructions: - Discharge Summary Sheet snw - Asthma, Adult snw Forms: - Medication Reconciliation Form snw - Thank You Letter snw - Antibiotic Education snw - Prescription Opioid Use snw - Work release form snw Prescriptions: - Flovent HFA 220 mcg/actuation Inhalation HFA aerosol inhaler - inhale 1 puff by INHALATION route 2 times per day Rinse mouth after each use; 1 snw Pump; Refills: 0, Product Selection Permitted - Zyrtec 10 mg Oral Tablet - take 1 tablet by ORAL route once daily As needed; 20 tablet; Refills: 0, snw Product Selection Permitted - Pepcid 20 mg Oral Tablet - take 1 tablet by ORAL route once daily; 20 tablet; Refills: 0, Product snw Selection Permitted - albuterol sulfate 90 mcg/actuation Inhalation HFA aerosol inhaler - inhale 2 puff by INHALATION route every 6 hours; 1 Pump; Refills: 0, Product snw Selection Permitted Signatures: Dispatcher [employer] Tsering Manrique FNP-C FNP-Csnw Giovanna Wright RN RN ap3 Elder Hancock MD MD jr11 Tan Lund RN RN mb8 Roseanne Billings RN RN jj7
--- NOTE | 2022-05-29 20:11 | ER ---
Nurse's Notes [facility] Name: Zafar Guerin Jr Age: 36 yrs Sex: Male : 1985 Arrival Date: 05/29/2022 Time: 18:17 Bed 20 Private MD: Diagnosis: Unspecified asthma with (acute) exacerbation Presentation: 05/29 18:27 Chief complaint: Patient states: he was evaluated here in the ED approx 2 weeks ago for ap3 cough, and was diagnosed with an upper respiratory infection. patient states that his symptoms now, have increased in severity and he is feeling much worse. Coronavirus screen: Client presents with at least one sign or symptom that may indicate coronavirus-19. Ebola Screen: No symptoms or risks identified at this time. Initial Sepsis Screen: Does the patient meet any 2 criteria? No. Patient's initial sepsis screen is negative. Does the patient have a suspected source of infection? No. Patient's initial sepsis screen is negative. Risk Assessment: Do you want to hurt yourself or someone else? Patient reports no desire to harm self or others. Onset of symptoms was April 2022. 18:27 Method Of Arrival: Ambulatory ap3 18:27 Acuity: NUBIA 3 ap3 Triage Assessment: 18:29 General: Appears uncomfortable, Behavior is calm, cooperative. General: Reports chills ap3 for fever for feeling ill for fatigue for. Pain: Denies pain. Neuro: Level of Consciousness is awake, alert, obeys commands, Oriented to person, place, time, situation. Cardiovascular: Patient's skin is warm and dry. Respiratory: Reports cough that is Airway is patent Respiratory effort is even, unlabored, Respiratory pattern is regular, symmetrical, Onset: The symptoms/episode began/occurred gradually, the patient has mild shortness of breath. Historical: - Allergies: 18:29 Amoxicillin; ap3 18:29 Iodine (Hives); ap3 18:29 PENICILLINS; ap3 - PMHx: 18:29 Asthma; ap3 - PSHx: 18:29 ear tubes; ap3 - Immunization history:: Client reports having NOT received the Covid vaccine. - Social history:: Smoking status: Patient denies any tobacco usage or history of. Screenin:30 Abuse screen: Denies threats or abuse. Nutritional screening: No deficits noted. ap3 Tuberculosis screening: No symptoms or risk factors identified. Fall Risk None identified. Assessment: 18:55 Cardiovascular: No deficits noted. Respiratory: Reports cough that is dry, Airway is mb8 patent Respiratory effort is even, unlabored, Respiratory pattern is regular, symmetrical, Breath sounds with wheezes in left posterior upper lobe, right posterior upper lobe, left posterior lower lobe, right posterior middle lobe and right posterior lower lobe. 19:10 Reassessment: ASSUMED CARE OF PT. PT SITTING IN BED RECEIVING A NEB TREATMENT. PT jj7 STATES HE IS FEELING BETTER WITH THE NEB TREATMENT. VS STABLE. STATES A HX OF ASTHMA. . 20:49 Cardiovascular: Rhythm is sinus tachycardia. jj7 Vital Signs: 18:27 BP 138 / 93; Pulse 107; Resp 18; Temp 98.9; Pulse Ox 100% ; Weight 142.88 kg; Height 5 ap3 ft. 8 in. (172.72 cm); 19:10 BP 121 / 77; Pulse 96; Resp 20; Pulse Ox 100% on Nebulizer Mask; Pain 0/10; jj7 20:15 BP 119 / 87; Pulse 107; Resp 19; Pulse Ox 100% on Nebulizer Mask; Pain 0/10; jj7 20:54 BP 120 / 76; Pulse 101; Resp 20; Pulse Ox 99% ; jj7 18:27 Body Mass Index 47.90 (142.88 kg, 172.72 cm) ap3 ED Course: 18:17 Patient arrived in ED. rg4 18:29 Triage completed. ap3 18:30 Arm band placed on right wrist. ap3 18:32 Tsering More FNP-C [facility]. snw 18:32 Eledr Hancock MD is Attending Physician. snw 18:35 Tan Lund RN is Primary Nurse. mb8 18:54 SARS-COV-2 RT PCR (Document "Date of Onset" if Symptomatic) Sent. mb8 18:55 Patient has correct armband on for positive identification. Call light in reach. Side mb8 rails up X2. Client placed on continuous cardiac and pulse oximetry monitoring. NIBP monitoring applied. 18:55 No provider procedures requiring assistance completed. mb8 18:55 Patient did not have IV access during this emergency room visit. mb8 Administered Medications: 18:54 Drug: Albuterol - atroVENT (ipratropium) (3:1) (2.5 mg - 0.5 mg) 3 ml Route: Nebulizer; mb8 20:31 Follow up: Response: No adverse reaction; Wheezing diminished jj7 20:31 Drug: Pulmicort 1 mg/2 mL 1 mg Route: Inhalation; jj7 20:55 Drug: Tussionex Pennkinetic ER (chlorpheniramine-hydrocodone) Suspension 5 ml Route: PO;jj7 Medication: 18:30 VIS not applicable for this client. ap3 Outcome: 20:11 Discharge ordered by . zay 20:49 Condition: improved jj7 20:53 Discharged to home ambulatory. jj7 20:53 Discharge instructions given to patient. 20:54 Patient left the ED. jj7 Signatures: Tsering More, ELECTRONIC PUBLISHING SPECIALIST-C ELECTRONIC PUBLISHING SPECIALIST-Yojana Phillip4 Giovanna Wright RN RN ap3 Tan Lund RN RN mb8 Roseanne Billings RN RN jj7
[2022-05-29] MEDS ORDERED: HYDROCODONE/CHLORPHEN 5 ML/OSYR ONE (20:35)
[2022-05-29 21:05] VITALS: TEMP 98.9
[2022-05-29 21:09] VITALS: BP 120/76; O2SAT 99
== END 2022-05-29 20:54 | disposition home or self-care (01) ==
LOC: ER 18:16
DX: J45.901 Unspecified asthma with (acute) exacerbation (principal); Z88.0 Allergy status to penicillin; Z88.1 Allergy status to other antibiotic agents; Z91.09 Other allergy status, other than to drugs and biological substances; Z20.822 Contact with and (suspected) exposure to COVID-19
CPT/HCPCS: 71046; 87804; 94640; 99284; U0003

== ENCOUNTER 2024-04-03 02:24 | Emergency (ER) | payer SELFPAY ==
--- OUTSIDE RECORDS SUMMARY | 2024-04-03 02:29 | XMS REPORT | Continuity of Care Document ---
Author Name Unknown Address [address] [facility] [place] [address] [facility] thconnect Address [address] [facility] [address] [place] [address] Care Team Providers Care Mercerizing Range Feeder Name Role Phone Pcp, Patient Does Not Have A Primary Care Physic contreras JUANITA MCGEE Attending Clinician Unavailable DUC ROBLES Attending Clinician Unavailable LAB47 Attending Clinician Unavailable DEEPTI DAVIS Attending Clinician Unavailable MD HUGO Attending Clinician Unavailab le LAB90 Attending Clinician Unavailable GEMINI STREETER Attending Clinician Unavailable Gemini Streeter MD Attending Clinician [phone] ANJALI MO Attending Clinician Unavailable ANJALI MO Attending Clinician Unavailable Anjali Mo DO Attending Clinician [phone] Radha Hughes RN Attending Clinician Unavaila ble Only, Ang Db Test Attending Clinician UnavailGiovanna Kevin MD Attending Clinician [phone] GIOVANNA YOUNG Attending Clinician Unavailable Juanita Mcgee MD Attending Clinician +[phone] Peg Mooney Attending Clinician [phone] Doctor Unassigned, [place] Attending Clinician U andrew Villafana RN, Marisel Hay Attending Clinician Unavail zafar Bermudez MD, Campos Attending Clinician + Shayan MEHTA, Chris Attending Clinician + Monty Milner MD Attending Clinician + [phone] Brenda Perez Attending Clinician + Corona Reed DO Attending Clinician + Provider, [facility] Attending Clinician Un available Nica Headley Attending Clinician [phone] NICA NAVARRO Attending Clinician Unavailable [facility] Attending Clinician Unav Jaimee Coleman Attending Clinician + [phone] JAIMEE MANDUJANO Attending Clinician Unavailable JUANITA MCGEE Admitting Clinician Unavailable Monty Milner MD Admitting Clinician + [phone] Payers Payer Name Policy Type Policy Number Effective Date Expirati on Date Source [facility] [id number] 2018 00:00:00 [facility] 2 [id number] 2024 00:00:00 [facility] MARA DAUGHERTY COPAY FOCUS 9 [id number] 2023 00:00:00 [facility] [employer] 2 [id number] 2023 00:00:00 Problems Condition Name Condition Details Condition Category Status Onset Date Resolution Date Last Treatment Date Treating Clinician Comments Source Allergic rhinitis Allergic rhinitis Disease Active 11-21 00:00: 00 Lauar Marquesold - Externa satnam Prediabete s Prediabete s Disease Active 11-21 00:00: 00 Laura Marquesold - Externa l Obesity Obesity Disease Active 11-21 00:00: 00 Laura Marquesold - Externa l Asthma (HHS-HCC) Asthma (HHS-HCC) Disease Active 11-21 00:00: 00 Laura Jett - Externa satnam IBD (inflammat ory bowel disease) IBD (inflammat ory bowel disease) Disease Active 03-01 00:00: 00 [facility] Morbid obesity with body mass index of 40.0-49.9 Morbid obesity with body mass index of 40.0-49.9 Disease Active 02-28 00:00: 00 [facility] Acute appendicit is Acute appendicit is Disease Active 02-28 00:00: 00 [facility] Morbid obesity with body mass index of 40.0-49.9 Morbid obesity with body mass index of 40.0-49.9 Disease Active 02-28 00:00: 00 [facility] No known active problems No known active problems Disease [facility] Allergies, Adverse Reactions, Alerts Allergy Name Allergy Type Status Severity Reaction(s) Onset Date Inactive Date Treating Clinician Comments Source Amoxicil amando Propensi ty to adverse reaction s Active Nausea and Vomiting 11-19 00:00: 00 Laura Seybold - Externa l Penicill in G Propensi ty to adverse reaction s Active Nausea and Vomiting 11-19 00:00: 00 Laura Seybold - Externa l IODINE AND IODIDE CONTAINI NG PRODUCTS Drug Class Active Hives 02-28 00:00: 00 [facility] Iodine And Iodide Containi ng Products Propensi ty to adverse reaction s Active Hives 02-28 00:00: 00 [facility] Iodine Propensi ty to adverse reaction s Active Hives 02-28 00:00: 00 Laura Seybold - Externa l AMOXICIL AMANDO DRUG INGREDI Active Hives 02-26 00:00: 00 [facility] PENICILL INS Drug Class Active Hives 02-26 00:00: 00 [facility] Penicill ins Propensi ty to adverse reaction s Active Hives 02-26 00:00: 00 [facility] Amoxicil amando Propensi ty to adverse reaction s Active Hives 02-26 00:00: 00 [facility] Penicill ins Propensi ty to adverse reaction s Active Hives 02-26 00:00: 00 [facility] Social History Social Habit Start Date Stop Date Quantity Comments Source [facility] SARS[facility]CoV[facility]2 (event) Yes [facility] Sexual orientation Jacobo Jett - External Alcoholic beverage intake 2024-02-06 00:00:00 2024-02-06 00:00:00 .29 /d Laura Jett - External Education 2023-11-22 00:00:00 2023-11-22 00:00:00 17 Laura Marquesjason - External Alcohol Comment 2023-11-22 00:00:00 2023-11-22 00:00:00 seldomly Laura Maciasowenjason - External Alcohol intake 2023-11-22 00:00:00 2023-11-22 00:00:00 .29 /d Laura Jett - External History of Social function 2023-11-20 00:00:00 2023-11-20 00:00:00 Laura owenjason - External Tobacco use and exposure 2023-11-20 00:00:00 2023-11-20 00:00:00 Smokeless tobacco non-user Laura owenjason - External Sex assigned at 1985 00:00:00 1985 00:00:00 Alura Johnie - External Smoking Status Start Date Stop Date Source Never smoked tobacco Laura owenjason - External Medications Ordered Medication Name Filled Medication Name Start Date Stop Date Current Medication? Ordering Clinician Indication Dosage Frequency Signature (SIG) Comments Components Source Metformin HCl 1000 MG oral Tablet 02-05 00:00: 00 Yes [id number] 1000mg Take 1 tablet (1,000 mg total) by mouth in the morning and 1 tablet (1,000 mg total) in the evening. Take with meals. Laura hay Metformin HCl 500 MG oral Tablet 12-11 00:00: 00 02-05 00:00 :00 No [id number] 500mg Take 1 tablet (500 mg total) by mouth in the morning and 1 tablet (500 mg total) in the evening. Take with meals. Laura Mcdonough l Cetirizine HCl (ZyrTEC Allergy) 10 MG oral Capsule 11-21 00:00: 00 Yes [id number] 10mg Take 1 capsule (10 mg total) by mouth daily. Laura hay Montelukast (Singulair) 10 MG oral Tablet tablet 11-21 00:00: 00 Yes [id number] 10mg Take 1 tablet (10 mg total) by mouth nightly. Laura hay Albuterol HFA 108 (90 Base) MCG/ACT IN AERS 11-21 00:00: 00 Yes [id number] 2{puff} Q.25D Inhale 2 puffs into the lungs every 6 hours as needed for wheezing or shortness of breath. Laura hay ciprofloxac in-hydrocor tisone otic suspension 04-12 00:00: 00 Yes [id number] 3[drp] Place 3 Drops in left ear in the morning and 3 Drops in the evening. [facility] azithromyci n 250 mg tablet 04-06 00:00: 00 Yes [id number] Take 2 tablets Day 1, then 1 tablet once a day for the next 4 days. [facility] ibuprofen 600 mg tablet 04-06 00:00: 00 Yes [id number] 600mg Take 1 tablet by mouth every 6 (six) hours as needed for Pain (scale 1-3). [facility] predniSONE 20 mg tablet 03-04 00:00: 00 03-09 04:59 :00 No [id number] 40mg Take 2 tablets by mouth daily for 4 days. [facility] ALBUTEROL INHALE 03-03 20:37: 21 Yes 2{puff} Inhale 2 Puffs as needed for Other (Wheezing) . [facility] ALBUTEROL INHALE 03-03 15:37: 21 Yes 2{puff} Inhale 2 Puffs as needed for Other (Wheezing) . [facility] ciprofloxac in HCl 500 mg tablet 03-03 00:00: 00 03-11 04:59 :00 No [id number] 500mg Take 1 tablet by mouth every 12 (twelve) hours for 7 days. [facility] predniSONE 10 mg tablet 03-03 00:00: 00 03-09 04:59 :00 No [id number] 30mg Take 3 tablets by mouth daily for 5 days. [facility] predniSONE 20 mg tablet 03-03 00:00: 00 03-09 04:59 :00 No [id number] 20mg Take 1 tablet by mouth daily for 5 days. [facility] predniSONE 10 mg tablet 03-03 00:00: 00 03-09 04:59 :00 No [id number] 10mg Take 1 tablet by mouth daily for 5 days. [facility] predniSONE (DELTASONE) tablet 40 mg 03-02 20:15: 00 Yes 40mg 40 mg, Oral, DAILY, First dose on Sun03/02/21 at 1515, Until Discontinu ed, Routine [facility] morpHINE injection 4 mg 03-02 02:04: 31 Yes 4mg 4 mg, Slow IV Push, Q4HPRN, Starting Sun03/01/21 at 2104, Until Discontinu ed, Routine, Pain (scale 7-10) [facility] pantoprazol e (PROTONIX) EC tablet 40 mg 03-01 14:00: 00 Yes 40mg 40 mg, Oral, DAILY, First dose on Sun03/01/21 at 0900, Until Discontinu ed, Routine [facility] NaCl 0.9% (NS) IV infusion 1,000 mL 03-01 01:15: 00 Yes 1000mL at 125 mL/hr, IV Infusion, CONTINUOUS , Starting Sun02/28/21 at 2015, Until Discontinu ed, Routine [facility] ondansetron (ZOFRAN (PF)) injection 4 mg 03-01 01:03: 59 Yes 4mg 4 mg, Slow IV Push, Q6HPRN, Starting Sun02/28/21 at 2003, Until Discontinu ed, Routine, Nausea and Vomiting (N/V) [facility] morpHINE injection 4 mg 03-01 01:03: 56 03-02 01:02 :56 No 4mg 4 mg, Slow IV Push, Q4HPRN, Starting Sun02/28/21 at 2002, Until Sun03/01/21 at 2001, Routine, Pain (scale 7-10) [facility] HYDROcodone -acetaminop hen (NORCO 5) 5-325 mg tablet 1 tablet 03-01 01:03: 51 03-03 01:02 :51 No 1{tbl} 1 tablet, Oral, Q6HPRN, Starting Sun02/28/21 at 2002, Until Sun03/02/21 at 2001, Routine, Pain (scale 4-6) [facility] acetaminoph en (TYLENOL) tablet 650 mg 03-01 01:03: 47 Yes 650mg 650 mg, Oral, Q6HPRN, Starting Sun02/28/21 at 2002, Until Discontinu ed, Routine, Pain (scale 1-3) [facility] metroNIDAZO LE in NaCl (iso-os) (FLAGYL I.V.) RTU IV infusion 500 mg 03-01 01:00: 00 Yes 500mg 500 mg, IV Infusion, Q8H ABX, First dose on Sun02/28/21 at 1999, Until Discontinu ed, 100 mL
Reas on for Anti-Infec tive: Documented Infection< br>Documen lien Infection Site: Abdominal< br>Duratio n of Therapy: Other (see Comments) [facility] ciprofloxac in in 5 % dextrose (CIPRO) piggyback 400 mg 03-01 01:00: 00 Yes 400mg 400 mg, IV Piggyback, Administer over 60 Minutes, Q12H ABX, First dose on Sun02/28/21 at 1999, Until Discontinu ed, MERI
Re ason for Anti-Infec tive: Documented Infection< br>Documen lien Infection Site: Abdominal< br>Duratio n of Therapy: Other (see Comments) [facility] diphenhydrA MINE (BENADRYL) injection 25 mg 02-28 22:11: 00 02-28 22:11 :00 No 25mg 25 mg, Slow IV Push, ONCE, 1 dose, Sun02/28/21 at 1715, STAT [facility] methylpredn isolone sod succ (SOLU-MEDRO L) injection 125 mg 02-28 22:10: 00 02-28 22:11 :00 No 125mg 125 mg, Slow IV Push, ONCE, 1 dose, Sun02/28/21 at 1715, STAT [facility] iopamidol (ISOVUE 370-500 mL) injection 120 mL 02-28 21:51: 00 02-28 21:51 :00 No [id number] 120mL 120 mL, Intravenou s, ONCE, 1 dose, 02/28/21 at 1700, Routine [facility] ondansetron (ZOFRAN (PF)) injection 4 mg 02-02 01:15: 00 02-02 00:15 :00 No 4mg 4 mg, Slow IV Push, ONCE, 1 dose, 02/01/21 at 2015, [facility] NaCl 0.9% (NS) bolus infusion 1,000 mL 02-02 00:15: 00 02-02 01:09 :00 No 1000mL at 999 mL/hr, 1,000 mL, IV Infusion, ONCE, 1 dose, 02/01/21 at 1915, [facility] ondansetron (ZOFRAN ODT) 4 mg disintegrat ing tablet 02-01 00:00: 00 Yes [id number] 4mg Take 1 tablet by mouth every 8 (eight) hours as needed for Nausea and Vomiting (N/V). [facility] polymyxin B sulf-trimet hoprim 10,000 unit- 1 mg/mL ophthalmic drops 01-18 00:00: 00 Yes [id number] 1[drp] Place 1 Drop in right eye every 4 (four) hours. [facility] methylPREDN ISolone (MEDROL, SAMUEL,) 4 mg tablets 01-18 00:00: 00 03-03 00:00 :00 No [id number] Take by mouth SEE-INSTRU CTIONS. follow package directions [facility] clindamycin 150 mg capsule 01-18 00:00: 00 01-26 04:59 :00 No [id number] 300mg Take 2 capsules by mouth 4 (four) times daily for 7 days. [facility] olopatadine (PATANOL) 0.1 % ophthalmic solution 2019-08 00:00: 08-02 05:59 :00 No [id number] 1[drp] Place 1 Drop in both eyes 2 (two) times daily for 30 days. [facility] levocetiriz ine 5 mg tablet 2019-08 00:00: 08-02 05:59 :00 No [id number] 5mg Take 1 tablet by mouth every evening for 30 days. [facility] fluticasone propionate 50 mcg/actuati on nasal spray 2019-08 00:00: 08-02 05:59 :00 No [id number] 2{spray } Use 2 Sprays in each nostril daily for 30 days. [facility] ALBUTEROL INHALE 02-10 14:17: 56 Yes 2{puff} Inhale 2 Puffs as needed for Other (Wheezing) . [facility] albuterol 90 mcg/actuati on inhaler 02-10 00:00: 03-13 04:59 :00 No [id number] 2{puff} Inhale 2 Puffs every 6 (six) hours as needed for Wheezing or Shortness of Breath for up to 30 days. [facility] benzonatate 200 mg capsule 02-10 00:00: 00 02-21 04:59 :00 No [id number] 200mg Take 1 capsule by mouth 3 (three) times daily as needed for Cough for up to 10 days. [facility] omeprazole (PRILOSEC) 40 mg capsule 03-06 00:00: 00 Yes 40mg Take 1 capsule by mouth daily. [facility] traMADOL (ULTRAM) 50 mg tablet 02-26 00:00: 00 Yes 50mg Take 1 tablet by mouth every 6 (six) hours as needed for Pain (scale 4-6). Miguel Johansen PA-C / Nicolás Kellogg MD VIVIANA# [id number] DPS# [id number] x Lic.# [id number] NPI# [id number] [facility] Immunizations Ordered Immunization Name Filled Immunization Name Date Status Comments Source Tdap- (Boostrix, Adacel) Unknown Completed Laura Seybold - External Tdap- (Boostrix, Adacel) Unknown Completed Laura Seybold - External Vital Signs Vital Name Observation Time Observation Value Comments S ource Systolic blood pressure 2024-02-06 16:12:00 126 mm[Hg] Laura Seybold - External Diastolic blood pressure 2024-02-06 16:12:00 84 mm[Hg] Laura Seybold - External Heart rate 2024-02-06 16:12:00 70 /min Laura Seybold - External Body temperature 2024-02-06 16:12:00 36.5 Tami Laura Seybold - External Respiratory rate 2024-02-06 16:12:00 16 /min Laura Seybold - External Body height 2024-02-06 16:12:00 170.2 cm Laura Seybold - External Body weight 2024-02-06 16:12:00 149.687 kg Laura Seybold - External BMI 2024-02-06 16:12:00 51.69 kg/m2 Laura Seybold - External Oxygen saturation in Arterial blood by Pulse oximetry 2024-02-06 16:12:00 96 /min Laura Seybold - External Systolic blood pressure 2023-11-22 15:20:00 135 mm[Hg] Laura Seybold - External Diastolic blood pressure 2023-11-22 15:20:00 83 mm[Hg] Laura Seybold - External Heart rate 2023-11-22 15:20:00 69 /min Laura Seybold - External Body temperature 2023-11-22 15:20:00 36.5 Tami Laura Seybold - External Body height 2023-11-22 15:20:00 170.2 cm Laura Jett - External Body weight 2023-11-22 15:20:00 151.32 kg Laura Jett - External BMI 2023-11-22 15:20:00 52.25 kg/m2 Laura Jett - External Oxygen saturation in Arterial blood by Pulse oximetry 2023-11-22 15:20:00 94 /min Laura Jett - External Systolic blood pressure 2023-04-13 00:15:00 141 mm[Hg] [facility] Diastolic blood pressure 2023-04-13 00:15:00 96 mm[Hg] [facility] Heart rate 2023-04-13 00:15:00 79 /min [facility] Body temperature 2023-04-13 00:15:00 37.11 Tami [facility] Respiratory rate 2023-04-13 00:15:00 18 /min [facility] Body height 2023-04-13 00:15:00 170.2 cm [facility] Body weight 2023-04-13 00:15:00 142.883 kg [facility] BMI 2023-04-13 00:15:00 49.34 kg/m2 [facility] Oxygen saturation in Arterial blood by Pulse oximetry 2023-04-13 00:15:00 95 /min [facility] Systolic blood pressure 2023-04-06 21:40:00 157 mm[Hg] [facility] Diastolic blood pressure 2023-04-06 21:40:00 105 mm[Hg] [facility] Heart rate 2023-04-06 21:40:00 87 /min [facility] Respiratory rate 2023-04-06 21:40:00 18 /min [facility] Oxygen saturation in Arterial blood by Pulse oximetry 2023-04-06 21:40:00 98 /min [facility] Body temperature 2023-04-06 20:30:00 37 Tami [facility] Body height 2023-04-06 20:30:00 170.2 cm [facility] Body weight 2023-04-06 20:30:00 143.79 kg [facility] BMI 2023-04-06 20:30:00 49.65 kg/m2 [facility] Systolic blood pressure 2021-03-10 14:31:00 130 mm[Hg] [facility] Diastolic blood pressure 2021-03-10 14:31:00 88 mm[Hg] [facility] Heart rate 2021-03-10 14:31:00 80 /min [facility] Body temperature 2021-03-10 14:31:00 36.78 Tami [facility] Respiratory rate 2021-03-10 14:31:00 20 /min [facility] Body height 2021-03-10 14:31:00 167.6 cm [facility] Body weight 2021-03-10 14:31:00 128.549 kg [facility] BMI 2021-03-10 14:31:00 45.74 kg/m2 [facility] Oxygen saturation in Arterial blood by Pulse oximetry 2021-03-10 14:31:00 98 /min [facility] Systolic blood pressure 2021-03-03 17:20:00 132 mm[Hg] [facility] Diastolic blood pressure 2021-03-03 17:20:00 94 mm[Hg] [facility] Heart rate 2021-03-03 17:20:00 73 /min [facility] Body temperature 2021-03-03 17:20:00 36.17 Tami [facility] Respiratory rate 2021-03-03 17:20:00 20 /min [facility] Oxygen saturation in Arterial blood by Pulse oximetry 2021-03-03 17:20:00 95 /min [facility] Body height 2021-03-01 02:44:00 170 cm [facility] Body weight 2021-03-01 02:44:00 127 kg [facility] BMI 2021-03-01 02:44:00 43.94 kg/m2 [facility] Systolic blood pressure 2021-02-02 00:20:00 137 mm[Hg] [facility] Diastolic blood pressure 2021-02-02 00:20:00 84 mm[Hg] [facility] Heart rate 2021-02-02 00:20:00 80 /min [facility] Respiratory rate 2021-02-02 00:20:00 16 /min [facility] Oxygen saturation in Arterial blood by Pulse oximetry 2021-02-02 00:20:00 97 /min [facility] Body temperature 2021-02-01 23:52:00 37.28 Tami [facility] Body height 2021-02-01 23:52:00 172.7 cm [facility] Body weight 2021-02-01 23:52:00 120.203 kg [facility] BMI 2021-02-01 23:52:00 40.29 kg/m2 [facility] Systolic blood pressure 2021-01-18 14:52:00 184 mm[Hg] Just got done drinking a Monster [facility] Diastolic blood pressure 2021-01-18 14:52:00 103 mm[Hg] Just got done drinking a Monster [facility] Heart rate 2021-01-18 14:52:00 71 /min [facility] Body temperature 2021-01-18 14:52:00 36.78 Tami [facility] Respiratory rate 2021-01-18 14:52:00 18 /min [facility] Body weight 2021-01-18 14:52:00 124.739 kg [facility] BMI 2021-01-18 14:52:00 43.07 kg/m2 [facility] Oxygen saturation in Arterial blood by Pulse oximetry 2021-01-18 14:52:00 100 /min [facility] Systolic blood pressure 2020-07-02 14:31:00 140 mm[Hg] [facility] Diastolic blood pressure 2020-07-02 14:31:00 99 mm[Hg] [facility] Heart rate 2020-07-02 14:29:00 66 /min [facility] Body temperature 2020-07-02 14:29:00 36.83 Tami [facility] Respiratory rate 2020-07-02 14:29:00 18 /min [facility] Body height 2020-07-02 14:29:00 170.2 cm [facility] Body weight 2020-07-02 14:29:00 124.739 kg [facility] BMI 2020-07-02 14:29:00 43.07 kg/m2 [facility] Oxygen saturation in Arterial blood by Pulse oximetry 2020-07-02 14:29:00 97 /min [facility] Systolic blood pressure 2020-07-02 14:31:00 140 mm[Hg] [facility] Diastolic blood pressure 2020-07-02 14:31:00 99 mm[Hg] [facility] Heart rate 2020-07-02 14:29:00 66 /min [facility] Body temperature 2020-07-02 14:29:00 36.83 Tami [facility] Respiratory rate 2020-07-02 14:29:00 18 /min [facility] Body height 2020-07-02 14:29:00 170.2 cm [facility] Body weight 2020-07-02 14:29:00 124.739 kg [facility] BMI 2020-07-02 14:29:00 43.07 kg/m2 [facility] Oxygen saturation in Arterial blood by Pulse oximetry 2020-07-02 14:29:00 97 /min [facility] Systolic blood pressure 2020-02-11 14:15:00 131 mm[Hg] [facility] Diastolic blood pressure 2020-02-11 14:15:00 85 mm[Hg] [facility] Heart rate 2020-02-11 14:15:00 73 /min [facility] Body temperature 2020-02-11 14:15:00 37.17 Tami [facility] Respiratory rate 2020-02-11 14:15:00 20 /min [facility] Body height 2020-02-11 14:15:00 170.2 cm [facility] Body weight 2020-02-11 14:15:00 120.203 kg [facility] BMI 2020-02-11 14:15:00 41.50 kg/m2 [facility] Oxygen saturation in Arterial blood by Pulse oximetry 2020-02-11 14:15:00 96 /min [facility] Systolic blood pressure 2020-02-11 14:15:00 131 mm[Hg] [facility] Diastolic blood pressure 2020-02-11 14:15:00 85 mm[Hg] [facility] Heart rate 2020-02-11 14:15:00 73 /min [facility] Body temperature 2020-02-11 14:15:00 37.17 Tami [facility] Respiratory rate 2020-02-11 14:15:00 20 /min [facility] Body height 2020-02-11 14:15:00 170.2 cm [facility] Body weight 2020-02-11 14:15:00 120.203 kg [facility] BMI 2020-02-11 14:15:00 41.50 kg/m2 [facility] Oxygen saturation in Arterial blood by Pulse oximetry 2020-02-11 14:15:00 96 /min [facility] Procedures Procedure Date / Time Performed Performing Clinician Source REAGENT STRIP/BLOOD GLUCOSE 2024-02-06 16:16:00 Deepti Davis - External CONSENT/REFUSAL FOR DIAGNOSIS AND TREATMENT 2023-04-13 00:05:05 Doctor Unassigned, [place] [facility] ASSIGNMENT OF BENEFITS 2023-04-06 21:27:48 Docto r Unassigned, [place] [facility] NOTICE OF PRIVACY PRACTICES 2023-04-06 20:05:58 Doctor Unassigned, [place] [facility] CONSENT/REFUSAL FOR DIAGNOSIS AND TREATMENT 2023-04-06 20:05:25 Doctor Unassigned, [place] [facility] WORKERS COMPENSATION 2021-03-10 05:01:00 Doctor Unassigned, [place] [facility] BASIC METABOLIC PANEL (NA, K, CL, CO2, GLUCOSE, BUN, CREATININE, CA) 2021-03-03 08:44:00 Pamela Lindsey [facility] CBC WITH DIFF 2021-03-03 08:44:00 Pamela Lindsey [facility] COMP. METABOLIC PANEL ([id number]) 2021-03-02 08:30:00 Pamela Lindsey [facility] CBC WITH DIFF 2021-03-02 08:30:00 Pamela Lindsey [facility] FECES CULTURE 2021-03-01 19:10:00 Nica Cohn [facility] OCCULT (GUAIAC) BLOOD 2021-03-01 19:10:00 Quentin Cohn [facility] FECAL LEUKOCYTES 2021-03-01 19:10:00 Suki, Nica U [facility] LIPID PANEL (80343)(TOTAL CHOLESTEROL, TRIGLYCERIDES, HDL) 2021-03-01 07:28:00 Shayan [facility] GLYCOSYLATED HEMOGLOBIN (A1C) 2021-03-01 07:28:00 Shayan [facility] HEPATITIS B SURFACE ANTIBODY 2021-03-01 07:28:00 [facility]TIGEN 2021-03-01 07:28:00 [facility] HCV ANTIBODY 2021-03-01 07:28:00 Chris Downey [facility] HAV ANTIBODY (IGG AND IGM) 2021-03-01 07:28:00 Shayan [facility] HEPATIC FUNCTION PANEL (73957) (ALB,T.PRO,BILI T,BU/BC,ALT,AST,ALK PHOS) 2021-03-01 07:03:00 Shayan [facility] BASIC METABOLIC PANEL (NA, K, CL, CO2, GLUCOSE, BUN, CREATININE, CA) 2021-03-01 07:03:00 [facility] WITH DIFF 2021-03-01 07:03:00 Shayan [facility] PROTHROMBIN TIME / INR 2021-03-01 07:03:00 [facility] THRMPLAS PENNY 2021-03-01 07:03:00 Shayan [facility] COVID-19 (ID NOW RAPID TESTING) 2021-02-28 23:45:00 Campos Bermudez [facility] LAB ONLY COVID INTERPRETATION 2021-02-28 23:45:00 Campos Bermudez [facility] CT ABDOMEN PELVIS W CONTRAST 2021-02-28 21:59:05 Campos Bermudez [facility] CBC WITH DIFF 2021-02-28 21:23:00 Campos Bermudez [facility] URINALYSIS 2021-02-28 21:23:00 [facility] LIPASE 2021-02-28 21:22:00 Campos Bermudez [facility] HEPATIC FUNCTION PANEL (71174) (ALB,T.PRO,BILI T,BU/BC,ALT,AST,ALK PHOS) 2021-02-28 21:22:00 Campos Bermudez [facility] BASIC METABOLIC PANEL (NA, K, CL, CO2, GLUCOSE, BUN, CREATININE, CA) 2021-02-28 21:22:00 Campos Bermudez [facility] CONSENT/REFUSAL FOR DIAGNOSIS AND TREATMENT 2021-02-28 20:18:27 Doctor Unassigned, [place] [facility] LIPASE 2021-02-02 00:14:00 Brenda Cristobal [facility] MAGNESIUM 2021-02-02 00:14:00 Brenda Cristobal [facility] COMP. METABOLIC PANEL (24609) 2021-02-02 00:14:00 Brenda Cristobal [facility] CBC WITH DIFF 2021-02-02 00:14:00 Brenda Cristobal [facility] CONSENT/REFUSAL FOR DIAGNOSIS AND TREATMENT 2021-02-01 23:47:04 Doctor Unassigned, [place] [facility] CONSENT/REFUSAL FOR DIAGNOSIS AND TREATMENT 2021-01-18 14:48:47 Doctor Unassigned, [place] [facility] Encounters Start Date/Time End Date/Time Encounter Type Admission Type Attending [facility] Care Facility Care Department Encounter ID Source 2021-06-27 10:31:32 Outpatient JUANITA MCGEE [facility] FOSTER [id number] [facility] 2021-06-27 06:04:08 Emergency [facility] [id number] [facility] 2021-06-26 23:59:53 Emergency [facility] [id number] [facility] 2021-06-26 21:06:42 Emergency [facility] [id number] [facility] 2024-03-06 00:00:00 2024-03-06 00:00:00 Outpatient DUC ROBLES [id number] Laura Jett 2024-02-06 11:20:00 2024-02-06 11:20:00 Outpatient GODWIN ECHOLS [id number] Laura Jett 2024-02-06 10:30:00 2024-02-06 10:30:00 Outpatient DEEPTI DAVIS LAURA ECHOLS [id number] Laura Jett 2024-02-05 00:00:00 2024-02-05 00:00:00 Outpatient PREZADUC Rubi LAURA [id number] Laura Maciasybjason 2024-01-04 14:30:00 2024-01-04 14:30:00 Outpatient PREZAElicia, DUC ECHOLS LAURA [id number] Laura Jett 2023-12-24 00:00:00 2023-12-24 00:00:00 Outpatient MD LAURA DUMONT [id number] Laura Jett 2023-12-14 00:00:00 2023-12-14 00:00:00 Outpatient PREZAElicia, DUC LAURA ECHOLS [id number] Laura Jett 2023-12-12 00:00:00 2023-12-12 00:00:00 Outpatient PREZAS, DUC LAURA ECHOLS [id number] Laura Jett 2023-11-27 00:00:00 2023-11-27 00:00:00 Outpatient PREZAS, DUC LAURA LAURA [id number] Laura Maciasybjason 2023-11-26 00:00:00 2023-11-26 00:00:00 Outpatient PREZADUC Rubi LAURA ECHOLS [id number] Laura Jett 2023-11-23 08:40:00 2023-11-23 08:40:00 Outpatient LAB90 LAURA LAURA [id number] Laura Maciasybjason 2023-11-22 10:00:00 2023-11-22 10:00:00 Outpatient PREZASDUC LAURA ECHOLS [id number] [facility] 2023-04-12 19:17:00 2023-04-12 20:17:[address] [facility] ERT [id number] [facility] 2023-04-12 19:17:00 2023-04-12 20:17:00 Emergency Gemini Streeter [facility] 1.2.114 350.1.13.10 4.2.7.2.686 [id number] [facility] 2023-04-06 15:33:00 2023-04-06 16:42:00 Emergency X ANJALI MO HEE-KWANG [facility] ERT [id number] [facility] 2023-04-06 15:33:00 2023-04-06 16:42:00 Emergency Anjali Mo [facility] 1..114 350.1.13.10 4.2.7.2.686 [id number] [facility] 2021-05-02 00:00:00 2021-05-02 00:00:00 Telephone Radha Hughes [facility] 1.114 350.1.13.10 4.2.7.2.686 [id number] [facility] 2021-05-01 19:42:58 2021-05-01 19:52:58 Laboratory Only Only, Ang Db Test Mati Giovanna [facility]?Efraín boo [facility] Office Building 1.84.114 350.1.13.10 4.2.7.2.686 [id number] [facility] 2021-05-01 19:40:00 2021-05-01 19:40:00 Outpatient R GIOVANNA YOUNG [facility] [id number] [facility] 2021-04-15 08:30:00 2021-04-15 08:30:00 Outpatient R JUANITA MCGEE [facility] [id number] [facility] 2021-04-15 00:00:00 2021-04-15 00:00:00 Telephone Juanita Mcgee [facility] Professio nal Building 1.84.114 350.1.13.10 4.2.7.2.686 [id number] [facility] 2021-03-14 00:00:00 2021-03-14 00:00:00 Prep For Surgery Peg Cortes [facility] 1.2.840.114 350.1.13.10 4.2.7.2.686 [id number] [facility] 2021-03-10 08:49:19 2021-03-10 09:34:06 Office Visit Juanita Mcgee [facility] 1.2840.114 350.1.13.10 4.2.7.2.686 [id number] [facility] 2021-03-10 08:30:00 2021-03-10 08:30:00 Outpatient R MAIRELA JUANITA [facility] [id number] [facility] 2021-03-10 00:00:00 2021-03-10 00:00:00 Orders Only Doctor Unassigned, [place] [facility] 1.20.114 350.1.13.10 4.2.7.2.686 [id number] [facility] 2021-03-07 00:00:00 2021-03-07 00:00:00 Telephone Juanita Mcgee [facility] 1.20.114 350.1.13.10 4.2.7.2.686 [id number] [facility] 2021-03-04 00:00:00 2021-03-04 00:00:00 Transition of Care Marisel Villafana 1.2840.114 350.1.13.10 4.2.7.2.686 [id number] [facility] 2021-02-28 15:32:00 2021-03-03 15:20:00 Hospital Encounter Campos Bermudez Shayan, Monty Martinez [facility] 1.2.840.114 350.1.13.10 4.2.7.2.686 [id number] [facility] 2021-02-01 18:54:00 2021-02-01 20:11:00 Emergency Brenda Cristobal [facility] 1.2.840.114 350.1.13.10 4.2.7.2.686 [id number] [facility] 2021-01-18 09:51:00 2021-01-18 10:57:00 Emergency Corona Reed [facility] 1.2.840.114 350.1.13.10 4.2.7.2.686 [id number] [facility] 2021-01-18 00:00:00 2021-01-18 00:00:00 Orders Only Doctor Unassigned, [place] [facility] 1.2.840.114 350.1.13.10 4.2.7.2.686 [id number] [facility] 2020-07-02 08:10:50 2020-07-02 08:30:50 Urgent Care Provider, Jose Urgent Mechelle Sarabiathia [facility] Office [facility] 1.2840.114 350.1.13.10 4.2.7.2.686 [id number] [facility] 2020-07-02 08:10:50 2020-07-02 08:30:50 Urgent Care Provider, Jose Urgent Care [facility] 1.2840.114 350.1.13.10 4.2.7.2.686 [id number] 2020-07-02 08:00:00 2020-07-02 08:00:00 Outpatient NICA OLIVO [facility] [id number] [facility] 2020-02-11 09:04:57 2020-02-11 09:42:48 Urgent Care Pob1, Acute Care Clinic Jaimee Mandujano A [facility] 1.2.840.114 350.1.13.10 4.2.7.2.686 [id number] [facility] 2020-02-11 09:04:57 2020-02-11 09:42:48 Urgent Care Pob1, Acute Care Clinic [facility] 1.840.114 350.1.13.10 4.2.7.2.686 [id number] 2020-02-11 09:00:00 2020-02-11 09:00:00 Outpatient R JAIMEE MANDUJANO [facility] [id number] [facility] Results Test Description Test Time Test Comments Results Result Co mments Source Laura Jett - ExternalBASIC METABOLIC PANEL (NA, K, CL, CO2, GLUCOSE, BUN, CREATININE, CA)2021-03-03 12:00:45* Test Item Value Reference Range Interpretation Comme nts NA (test code = 5456400619) 137 mmol/L 135-145 K (test code = 2358298925) 4.0 mmol/L 3.5-5.0 CL (test code = 4351337295) 105 mmol/L 98-108 CO2 TOTAL (test code = 8165406253) 29 mmol/L 23-31 AGAP (test code = 4485729025) 2-16 BUN (test code = 7991679832) 13 mg/dL 7-23 GLUCOSE (test code = 5547006354) 95 mg/dL 70-110 CREATININE (test code = 7061209502) 0.74 mg/dL 0.60-1.25 CALCIUM (test code = 5624122965) 9.2 mg/dL 8.6-10.6 eGFR (test code = 3564421325) mL/min/1.73m2 MERVAT (test code = MERVAT) Association of Glomerular Filtration Rate (GFR) and Staging of Kidney Disease* + + +- +| GFR (mL/min/1.73 m2) ?| With Kidney Damage ?| ?Without Kidney Damage+ ------+ ----+ ------+| ?>90 ?| ?Stage one ?| ? Normal ?+ -+ + -+| ?60-89 ?| ?Stage two ?| ? Decreased GFR ? + + +- +| ?30-59 ?| ?Stage three ?| ? Stage three ? + + +- +| ?15-29 ?| ?Stage four ? | ? Stage four ?+ -+ + -+| ?<15 (or dialysis) ? ?| ?Stage five ? | ? Stage five ?+ -+ + -+ *Each stage assumes the associated GFR level [...] or urine or abnormalities in imaging tests). [facility] WITH [id number] 11:43:23* Test Item Value Reference Range Interpretation Comme nts WBC (test code = 6690-2) See_Comment H [Automated message] The system which generated this result transmitted reference range: 4.20 - 10.70 10*3/?L. The reference range was not used to interpret this result as normal/abnormal. RBC (test code = 789-8) See_Comment [Automated message] The system which generated this result transmitted reference range: 4.26 - 5.52 10*6/?L. The reference range was not used to interpret this result as normal/abnormal. HGB (test code = 718-7) 13.8 g/dL 12.2-16.4 HCT (test code = 4544-3) 41.7 % 38.4-49.3 MCV (test code = 787-2) 83.4 fL 81.7-95.6 MCH (test code = 785-6) 27.6 pg 26.1-32.7 MCHC (test code = 786-4) 33.1 g/dL 31.2-35.0 RDW-SD (test code = 01570-8) 39.7 fL 38.5-51.6 RDW-CV (test code = 788-0) 13.2 % 12.1-15.4 PLT (test code = 777-3) See_Comment [Automated message] The system which generated this result transmitted reference range: 150 - 328 10*3/?L. The reference range was not used to interpret this result as normal/abnormal. MPV (test code = 98513-8) 9.8 fL 9.8-13.0 NRBC/100 WBC (test code = 7944187340) See_Comment [Automated message] The system which generated this result transmitted reference range: 0.0 - 10.0 /100 WBCs. The reference range was not used to interpret this result as normal/abnormal. NRBC x10^3 (test code = 1627054736) <0.01 See_Comment [Automated message] The system which generated this result transmitted reference range: 10*3/?L. The reference range was not used to interpret this result as normal/abnormal. GRAN MAT (NEUT) % (test code = 770-8) 83.6 % IMM GRAN % (test code = 2876036591) 0.60 % LYMPH % (test code = 736-9) 10.6 % MONO % (test code = 5905-5) 4.9 % EOS % (test code = 713-8) 0.0 % BASO % (test code = 706-2) 0.3 % GRAN MAT x10^3(ANC) (test code = 8864913025) 13.34 10*3/uL 1.99-6.95 H IMM GRAN x10^3 (test code = 9288134469) 0.10 10*3/uL 0.00-0.06 H LYMPH x10^3 (test code = 731-0) 1.69 10*3/uL 1.09-3.23 MONO x10^3 (test code = 742-7) 0.78 10*3/uL 0.36-1.02 EOS x10^3 (test code = 711-2) <0.03 0.06-0.53 L BASO x10^3 (test code = 704-7) 0.04 10*3/uL 0.01-0.09 Lab Interpretation (test code = 02312-2) [facility] [id number] 19:22:00* Test Item Value Reference Range Interpretation Comme nts Occult (guaiac) Blood (test code = 2335-8) Negative Negative Lab Interpretation (test cod e = 43112-4) Normal [facility] COVID [id number] 15:53:57COVID DMT InterpretationInterpretation/Recommendations:Molecular NAAT Tests for Active Infection with the SARS-CoV-2 Virus:The patient has currently tested negative for the SARS-CoV-2 virus that causes COVID-19 illness. This most likely indicates that the patient does not have an active infection with the SARS-CoV-2 virus at this time. However, infection is not completely ruled out as the false negative rate for molecular NAAT testing using a nasopharyngeal sample can be up to 30%, mostly dependent on the timing of sample collection in relation to illness onset and any deficiencies in sampling techniques. If the patient has symptoms concerning for COVID-19 illness, a repeat NAAT test (PCR, R apid ID Now, etc.) should be performed, at which time the SARS-CoV-2 virus - if present - may have reached a detectable viral load (usually peaking by the end of the first week of symptoms). Tests for IgM and/or IgG Antibodies to the SARS-CoV-2 Virus:Testing for IgM and IgG antibodies approximately3 weeks after illness onset will likely indicate whether the patient has produced antibodies to azaGBNJ-QhP-3 virus. However, some patients may take longer to develop detectable antibodies, while some patients who were infected with SARS-CoV-2 may never develop antibodies. While antibodies to SARS-CoV-2 may provide some degree of immunity, at this time the strength and duration of the antibody response is unknown. Interpretation Result Comments:These interpretation comments are based upon all COVID-19 testing the patient has had at [facility], including molecular NAAT testing (more commonly known as PCR testing and Rapid IDNow testing) and antibody testing. It does not take into account any testing that a patient has hadoutside of the [facility] medical record. [facility] LABORATORY SERVICESCOVID GtwghcyVPQL-PwW-1 NAAT (no units)? ? Date ? Value ? 07/02/2020 ? Not Detected ? ? ? 02/11/2020 ? Positive (A) ? SARS-CoV-2 Rapid ID NOW (no units) ? ? Date ? Value ? 02/28/2021 ? Not Detected ? [facility] SERVICESUnSt[facility] CenterCOMP. METABOLIC PANEL (83390) 2021-03-02 09:26:09* Test Item Value Reference Range Interpretation Comme nts NA (test code = 9543177105) 136 mmol/L 135-145 K (test code = 4955113037) 4.1 mmol/L 3.5-5.0 CL (test code = 8820384750) 103 mmol/L 98-108 CO2 TOTAL (test code = 3850213282) 27 mmol/L 23-31 AGAP (test code = 0074521168) 2-16 BUN (test code = 0643634127) 17 mg/dL 7-23 GLUCOSE (test code = 9325335046) 128 mg/dL 70-110 H CREATININE (test code = 8631237788) 0.79 mg/dL 0.60-1.25 TOTAL BILI (test code = 7305332074) 0.7 mg/dL 0.1-1.1 CALCIUM (test code = 5537215212) 9.3 mg/dL 8.6-10.6 T PROTEIN (test code = 3542810156) 6.6 g/dL 6.3-8.2 ALBUMIN (test code = 1298122959) 3.9 g/dL 3.5-5.0 ALK PHOS (test code = 2962151157) 77 U/L 34-122 ALTv (test code = 1742-6) 57 U/L 5-50 H AST(SGOT) (test code = 6569907145) 29 U/L 13-40 eGFR (test code = 8277990997) mL/min/1.73m2 MERVAT (test code = MERVAT) Association [...] or abnormalities in imaging tests). Lab Interpretation (test code = 41274-6) Abnormal [facility] WITH [id number] 08:46:58* Test Item Value Reference Range Interpretation Comme nts WBC (test code = 6690-2) See_Comment H [Automated message] The system which generated this result transmitted reference range: 4.20 - 10.70 10*3/?L. The reference range was not used to interpret this result as normal/abnormal. RBC (test code = 789-8) See_Comment [Automated message] The system which generated this result transmitted reference range: 4.26 - 5.52 10*6/?L. The reference range was not used to interpret this result as normal/abnormal. HGB (test code = 718-7) 15.2 g/dL 12.2-16.4 HCT (test code = 4544-3) 45.4 % 38.4-49.3 MCV (test code = 787-2) 83.0 fL 81.7-95.6 MCH (test code = 785-6) 27.8 pg 26.1-32.7 MCHC (test code = 786-4) 33.5 g/dL 31.2-35.0 RDW-SD (test code = 59050-6) 39.4 fL 38.5-51.6 RDW-CV (test code = 788-0) 13.2 % 12.1-15.4 PLT (test code = 777-3) See_Comment [Automated message] The system which generated this result transmitted reference range: 150 - 328 10*3/?L. The reference range was not used to interpret this result as normal/abnormal. MPV (test code = 56615-1) 9.4 fL 9.8-13.0 L NRBC/100 WBC (test code = 1366572716) See_Comment [Automated message] The system which generated this result transmitted reference range: 0.0 - 10.0 /100 WBCs. The reference range was not used to interpret this result as normal/abnormal. NRBC x10^3 (test code = 0345316481) <0.01 See_Comment [Automated message] The system which generated this result transmitted reference range: 10*3/?L. The reference range was not used to interpret this result as normal/abnormal. GRAN MAT (NEUT) % (test code = 770-8) 83.3 % IMM GRAN % (test code = 1290087873) 0.30 % LYMPH % (test code = 736-9) 11.0 % MONO % (test code = 5905-5) 5.0 % EOS % (test code = 713-8) 0.1 % BASO % (test code = 706-2) 0.3 % GRAN MAT x10^3(ANC) (test code = 6898706650) 12.88 10*3/uL 1.99-6.95 H IMM GRAN x10^3 (test code = 7570583949) 0.04 10*3/uL 0.00-0.06 LYMPH x10^3 (test code = 731-0) 1.70 10*3/uL 1.09-3.23 MONO x10^3 (test code = 742-7) 0.78 10*3/uL 0.36-1.02 EOS x10^3 (test code = 711-2) <0.03 0.06-0.53 L BASO x10^3 (test code = 704-7) 0.05 10*3/uL 0.01-0.09 Lab Interpretation (test code = 35956-2) Abnormal [facility]ECAL [id number] 00:37:23* Test Item Value Reference Range Interpretation Comme nts Fecal Leukocytes (test code = 8625386217) Positive Negative A Lab Interpretation (test cod e = 88478-1) Abnormal [facility] [id number] 17:59:51* Test Item Value Reference Range Interpretation Comme nts HBsAB (test code = 4631093136) Negative HBsAb Semi-Quantitative (test code = 4925409293) mIU/mL MERVAT (test code = MERVAT) Interpretation: ?Hepatitis B Surface Antibody ? Negative - Patient is considered to be not immune to infection with HBV. ? ? Positive - Anti-HBs detected at greater than or equal to 12 mIU/mL. ?Patient is considered to be immune to infection with HBV. ? [facility] (IGG AND IGM)2021-03-01 17:59:51 * Test Item Value Reference Range Interpretation Comme nts HAV Total (test code = 3612994721) Negative HAVT Semi-Quantitative (test code = 8965514475) [facility] HospitalHCV [id number] 17:59:50* Test Item Value Reference Range Interpretation Comme nts HCV Ab (test code = 41341-8) Negative HCV Semi-Quantitative (test code = 39466-7) [facility] B SURFACE [id number] 17:43:34 * Test Item Value Reference Range Interpretation Comme nts HBsAg Semi-Quantitative (isak t code = 5195-3) Negative Negative [facility] HospitalCB with [id number] 11:40:35* Test Item Value Reference Range Interpretation Comme nts WBC (test code = 6690-2) See_Comment H [Automated BioSTLa ge] The system which generated this result transmitted reference range: 4.20 - 10.70 10*3/?L. The reference range was not used to interpret this result as normal/abnormal. RBC (test code = 789-8) See_Comment [Automated BioSTLa ge] The system which generated this result transmitted reference range: 4.26 - 5.52 10*6/?L. The reference range was not used to interpret this result as normal/abnormal. HGB (test code = 718-7) 14.4 g/dL 12.2-16.4 HCT (test code = 4544-3) 42.7 % 38.4-49.3 MCV (test code = 787-2) 82.4 fL 81.7-95.6 MCH (test code = 785-6) 27.8 pg 26.1-32.7 MCHC (test code = 786-4) 33.7 g/dL 31.2-35.0 RDW-SD (test code = 78615-4) 38.5 fL 38.5-51.6 RDW-CV (test code = 788-0) 12.9 % 12.1-15.4 PLT (test code = 777-3) See_Comment [Automated BioSTLa ge] The system which generated this result transmitted reference range: 150 - 328 10*3/?L. The reference range was not used to interpret this result as normal/abnormal. MPV (test code = 19534-1) 10.2 fL 9.8-13.0 IPF % (test code = 8996536325) 2.4 % 1.2-10.7 Platelet count measured by fluorescence method. NRBC/100 WBC (test code = 7832880932) See_Comment [Automated Pi-Cardia ssage] The system which generated this result transmitted reference range: 0.0 - 10.0 /100 WBCs. The reference range was not used to interpret this result as normal/abnormal. NRBC x10^3 (test code = 3281735224) <0.01 See_Comment [Automated BioSTLa ge] The system which generated this result transmitted reference range: 10*3/?L. The reference range was not used to interpret this result as normal/abnormal. GRAN MAT (NEUT) % (test code = 770-8) 91.2 % IMM GRAN % (test code = 5516845037) 0.50 % LYMPH % (test code = 736-9) 7.2 % MONO % (test code = 5905-5) 0.9 % EOS % (test code = 713-8) 0.0 % BASO % (test code = 706-2) 0.2 % GRAN MAT x10^3(ANC) (test code = 5840502812) 13.95 10*3/uL 1.99-6.95 H IMM GRAN x10^3 (test code = 9846264151) 0.07 10*3/uL 0.00-0.06 H LYMPH x10^3 (test code = 731-0) 1.10 10*3/uL 1.09-3.23 MONO x10^3 (test code = 742-7) 0.14 10*3/uL 0.36-1.02 L EOS x10^3 (test code = 711-2) <0.03 0.06-0.53 L BASO x10^3 (test code = 704-7) 0.03 10*3/uL 0.01-0.09 ROULEAUX (test code = 7797-4) Present See_Comment A [Automated BioSTLa ge] The system which generated this result transmitted reference range: (none). The reference range was not used to interpret this result as normal/abnormal. Lab Interpretation (test code = 59620-2) Abnormal [facility] HospitalLIPID PANEL (03446)(TOTAL CHOLESTEROL, TRIGLYCERIDES, HDL)2021-03-01 10:18:25* Test Item Value Reference Range Interpretation Comme nts CHOL (test code = 8726053914) 187 mg/dL 120-200 HDL (test code = 1186170139) 38 mg/dL >40 L HDLC RATIO (test code = 5869977592) See_Comment [Automated BioSTLa ge] The system which generated this result transmitted reference range: <=5.0. The reference range was not used to interpret this result as normal/abnormal. TRIG (test code = 6937932163) 91 mg/dL 30-170 LDL CHOL (test code = 73863-2) 131 mg/dL See_Comment [Automated RAP Index] The system which generated this result transmitted reference range: <=160. The reference range was not used to interpret this result as normal/abnormal. VLDL (test code = 1656103934) 18 mg/dL 5-60 Lab Interpretation (test code = 33980-7) Abnormal [facility] Metabolic Panel (NA, K, CL, CO2, GLUCOSE, BUN, CREATININE, CA)2021-03-01 10:17:39* Test Item Value Reference Range Interpretation Comme nts NA (test code = 7745661183) 138 mmol/L 135-145 K (test code = 4281784289) 4.2 mmol/L 3.5-5.0 CL (test code = 7618884486) 102 mmol/L 98-108 CO2 TOTAL (test code = 1478128907) 27 mmol/L 23-31 AGAP (test code = 6895393826) 2-16 BUN (test code = 0188631493) 15 mg/dL 7-23 GLUCOSE (test code = 7746535883) 144 mg/dL 70-110 H CREATININE (test code = 3887433182) 0.66 mg/dL 0.60-1.25 CALCIUM (test code = 2209026118) 9.8 mg/dL 8.6-10.6 eGFR (test code = 0332793257) mL/min/1.73m2 MERVAT (test code = MERVAT) Association [...] or abnormalities in imaging tests). Lab Interpretation (test code = 82824-6) [facility] (03893[facility] (ALB,T.PRO,BILI T,BU/BC,ALT,AST,ALK PHOS)2021-03-01 10:17:38* Test Item Value Reference Range Interpretation Comme nts TOTAL BILI (test code = 5702264406) 0.6 mg/dL 0.1-1.1 BILI UNCON (test code = 7557318472) 0.4 mg/dL 0.1-1.1 BILI CONJ (test code = 3699680455) 0.0 mg/dL 0.0-0.3 T PROTEIN (test code = 0911221645) 7.5 g/dL 6.3-8.2 ALBUMIN (test code = 3958599034) 4.2 g/dL 3.5-5.0 ALK PHOS (test code = 2024046394) 88 U/L 34-122 ALTv (test code = 1742-6) 76 U/L 5-50 H AST(SGOT) (test code = 5321500622) 41 U/L 13-40 H Lab Interpretation (test cod e = 73791-0) Abnormal [facility] HospitalGLYCOSYLATED HEMOGLOBIN (A1C)2021-03-01 09:37:27* Test Item Value Reference Range Interpretation Comme nts HGB A1C (test code = 4548-4) 5.8 % 4.0-5.7 H MERVAT (test code = MERVAT) Reference RangesNormal: <5.7%Prediabetes: 5.7 - 6.4%Diabetes: > 6.5% Lab Interpretation (test code = 89130-7) Abnormal [facility] HospitalaPTT2021-07-[facility] 09:25:53* Test Item Value Reference Range Interpretation Comme [facility] AP[facility] Patient (test code = 3173-2) See_Comment [Automated message] The system which generated this result transmitted reference range: 23 - 38 Seconds. The reference range was not used to interpret this result as normal/abnormal. MERVAT (test code = MERVAT) The [facility] [place] patient population mean normal value for aPTT is 30 seconds. Lab Interpretation (test code = 45251-6) Normal [facility] HospitalProthrombin Time / [id number] 09:23:36* Test Item Value Reference Range Interpretation Comme [facility] PROTIME PATIENT (test code = 5964-2) See_Comment [Automated messa ge] The system which generated this result transmitted reference range: 12.0 - 14.7 Seconds. The reference range was not used to interpret this result as normal/abnormal. INR (test code = 6301-6) Normal INR <1.1; Warfarin Therapeutic range 2.0 to 3.0 or 2.5 to 3.5, depending upon the indications. Lab Interpretation (test code = 33816-2) Normal [facility]COVID[facility] (ID NOW RAPID TESTING)2021-03-01 00:25:13* Test Item Value Reference Range Interpretation Comme [facility] SARS-CoV-2 Rapid ID NOW (test code = 92928-0) Not Detected Not Detected MERVAT (test code = MERVAT) ID NOW COVID-19 As say is an isothermal nucleic acid amplification test intended for the qualitative detection of nucleic acid from SARS-CoV-2 viral RNA in nasopharyngeal (SKYDIVING INSTRUCTOR) specimens. It is used under Emergency Use [...] patient testing if clinically indicated. Lab Interpretation (test code = 89509-7) Normal [facility] HospitalCT ABDOMEN PELVIS W [id number] 00:23:52Acute inflammation involving the cecum and extending into the ostium of theappendix. Right lower quadrant mesentery shows fat stranding and prominentreactive lymph nodes. No evidence of perforation or abscess formation. Preliminary Report Dictated by Resident: Mihaela Williamson ?MD. Marlene, yenni dumont reviewed this study and agree with theabove report.EXAM: CT ABDOMEN AND PELVIS WITH CONTRAST HISTORY: 35 years -old Male with Abdominal distension and pain COMPARISON: None available. TECHNIQUE AND FINDINGS: Contiguous axial imaging was performed from thelung bases to the proximal femurs after the administration of intravenousOmnipaque contrast in the portal venous phase. Coronal and sagittalreconstructions were obtained.Auto mA and/or iterative reconstruction were used to reduce radiation dose. FINDINGS: LOWER THORAX: Minimal dependent atelectasis. The lung bases are otherwiseclear. LIVER: No focal hepatic lesions. ?Normal contour. No intrahepatic ductaldilatation. The portal veins arepatent. GALLBLADDER AND BILIARY TREE: No extrahepatic biliary ductal dilation. ?Nohyperdense stones. No gallbladder wall thickening. SPLEEN: No splenomegaly. PANCREAS: No ductal dilation or masses. ADRENAL GLANDS: No adrenal nodules. KIDNEYS: The kidneys enhance symmetrically. No hydronephrosis, stones, ormasses. PERITONEUM AND RETROPERITONEUM: No free air or fluid. LYMPH NODES: Multiple prominent lymph nodes seen in the right lowerquadrant, along the appendix and cecum, measuring up to 1.0 cm.GI TRACT: Significant mucosal hyperenhancement and submucosal edema seenthroughout the cecum and inferior portion of the ascending colon withsurrounding fat stranding. The inflammatory changes extending to theproximal/ostium of the appendix. Right lower quadrant mesenteric lymphnodes are seen. No evidence of extraluminal free air or fluid collection. PELVIS/BLADDER: The urinary bladder appears normal. VESSELS: Unremarkable. BONES AND SOFT TISSUES: No suspicious lytic or sclerotic bony lesions. [facility], Radiant Results Inft User - 02/28/2021 7:24 PM CDT EXAM: CT ABDOMEN AND PELVIS WITH CONTRASTHISTORY: 35 years -old Male with Abdominaldistension and painCOMPARISON: None available.TECHNIQUE AND FINDINGS: Contiguous axial imaging was performed from thelung bases to the proximal femurs after the administration of intravenousOmnipaquecontrast in the portal venous phase. Coronal and sagittalreconstructions were obtained.Auto mA and/or iterative reconstruction were used to reduce radiation dose.FINDINGS:LOWER THORAX: Minimal dependent atelectasis. The lung bases are otherwiseclear. LIVER: No focal hepatic lesions. Normal contour.No intrahepatic ductaldilatation. The portal veins are patent.GALLBLADDER AND BILIARY TREE: No extrahepatic biliary ductal dilation. Nohyperdense stones. No gallbladder wall thickening.SPLEEN: No sple nomegaly.PANCREAS: No ductal dilation or masses.ADRENAL GLANDS: No adrenal nodules.KIDNEYS: The kidneys enhance symmetrically. No hydronephrosis, stones, ormasses.PERITONEUM AND RETROPERITONEUM: No free air or fluid.LYMPH NODES: Multiple prominent lymph nodes seen in the right lowerquadrant, along the appendix and cecum, measuring up to 1.0 cm. GI TRACT: Significant mucosal hyperenhancement and submucosal edema seenthroughout the cecum and inferior portion of the ascending colon withsurroundingfat stranding. The inflammatory changes extending to theproximal/ostium of the appendix. Right lower quadrant mesenteric lymphnodes are seen. No evidence of extraluminal free air or fluid collection.PELVIS/BLADDER: The urinary bladder appears normal.VESSELS: Unremarkable.BONES AND SOFT TISSUES: No suspicious lytic or sclerotic bony lesions.IMPRESSIONAcute inflammation involving the cecum and extending into the ostium of theappendix. Right lower quadrant mesentery shows fat stranding and prominentreactive lymph nodes. No evidence of perforation or abscess formation.Preliminary Report Dictated by Resident: Mihaela Rivas MD., have reviewed this study and agree with theabove report. [facility] HospitalBasi Metabolic Panel (NA, K, CL, CO2, GLUCOSE, BUN, CREATININE, CA)2021-02-28 21:48:21* Test Item Value Reference Range Interpretation Comme nts NA (test code = 9118372211) 142 mmol/L 135-145 K (test code = 6473418504) 3.7 mmol/L 3.5-5.0 CL (test code = 4148502206) 103 mmol/L 98-108 CO2 TOTAL (test code = 1199899814) 32 mmol/L 23-31 H AGAP (test code = 1841609228) 2-16 BUN (test code = 1274931892) 16 mg/dL 7-23 GLUCOSE (test code = 7152521372) 109 mg/dL 70-110 CREATININE (test code = 8199108522) 0.82 mg/dL 0.60-1.25 CALCIUM (test code = 7755584233) 9.5 mg/dL 8.6-10.6 eGFR (test code = 5588860094) mL/min/1.73m2 MERVAT (test code = MERVAT) Association [...] or abnormalities in imaging tests). Lab Interpretation (test code = 57204-0) Abnormal [facility] HospitalHepatic Function Panel (ALB, T.PRO, BILI T, BU/BC, ALT, AST, ALK PHOS)2021-02-28 21:48:20* Test Item Value Reference Range Interpretation Comme nts TOTAL BILI (test code = 4634488171) 0.5 mg/dL 0.1-1.1 BILI UNCON (test code = 6462546136) 0.3 mg/dL 0.1-1.1 BILI CONJ (test code = 6919437244) 0.0 mg/dL 0.0-0.3 T PROTEIN (test code = 9310966986) 7.8 g/dL 6.3-8.2 ALBUMIN (test code = 5036220307) 4.2 g/dL 3.5-5.0 ALK PHOS (test code = 4812931746) 95 U/L 34-122 ALTv (test code = 1742-6) 86 U/L 5-50 H AST(SGOT) (test code = 5875395411) 50 U/L 13-40 H Lab Interpretation (test cod e = 61235-0) Abnormal [facility] HospitalLipase [id number] 21:47:55* Test Item Value Reference Range Interpretation Comme nts LIPASE (test code = 7434732917) 192 U/L 0-220 Lab Interpretation (test cod e = 74074-4) Normal [facility] HospitalUrinalysis2021-07-05 21:47:39* Test Item Value Reference Range Interpretation Comme nts APPEARANCE (test code = 0715490295) Clear Clear COLOR (test code = 7156958394) Yellow Yellow PH (test code = 8722567719) 4.8-8.0 SP GRAVITY (test code = 6232672958) 1.003-1.030 GLU U QUAL (test code = 2443584263) Normal Normal BLOOD (test code = 1700326662) Negative Negative KETONES (test code = 6363120114) Negative Negative PROTEIN (test code = 2887-8) Negative Negative UROBILIN (test code = 9882646234) Normal Normal BILIRUBIN (test code = 6081311844) Negative Negative NITRITE (test code = 6623000225) Negative Negative LEUK SHAREE (test code = 2206526846) Negative Negative RBC/HPF (test code = 3903069475) See_Comment [Automated messa ge] The system which generated this result transmitted reference range: 0 - 3 HPF. The reference range was not used to interpret this result as normal/abnormal. WBC/HPF (test code = 0287285218) See_Comment [Automated messa ge] The system which generated this result transmitted reference range: 0 - 5 HPF. The reference range was not used to interpret this result as normal/abnormal. BACTERIA (test code = 5010929451) Negative Negative SQ EPITH (test code = 9309976513) <1 HPF [facility] with [id number] 21:37:14* Test Item Value Reference Range Interpretation Comme nts WBC (test code = 6690-2) See_Comment H [Automated messa ge] The system which generated this result transmitted reference range: 4.20 - 10.70 10*3/?L. The reference range was not used to interpret this result as normal/abnormal. RBC (test code = 789-8) See_Comment [Automated messa ge] The system which generated this result transmitted reference range: 4.26 - 5.52 10*6/?L. The reference range was not used to interpret this result as normal/abnormal. HGB (test code = 718-7) 15.0 g/dL 12.2-16.4 HCT (test code = 4544-3) 45.7 % 38.4-49.3 MCV (test code = 787-2) 84.5 fL 81.7-95.6 MCH (test code = 785-6) 27.7 pg 26.1-32.7 MCHC (test code = 786-4) 32.8 g/dL 31.2-35.0 RDW-SD (test code = 59532-4) 40.2 fL 38.5-51.6 RDW-CV (test code = 788-0) 13.2 % 12.1-15.4 PLT (test code = 777-3) See_Comment [Automated messa ge] The system which generated this result transmitted reference range: 150 - 328 10*3/?L. The reference range was not used to interpret this result as normal/abnormal. MPV (test code = 33250-8) 9.6 fL 9.8-13.0 L NRBC/100 WBC (test code = 0217082364) See_Comment [Automated me ssage] The system which generated this result transmitted reference range: 0.0 - 10.0 /100 WBCs. The reference range was not used to interpret this result as normal/abnormal. NRBC x10^3 (test code = 9186976700) <0.01 See_Comment [Automated messa ge] The system which generated this result transmitted reference range: 10*3/?L. The reference range was not used to interpret this result as normal/abnormal. GRAN MAT (NEUT) % (test code = 770-8) 74.7 % IMM GRAN % (test code = 2780800338) 0.50 % LYMPH % (test code = 736-9) 17.6 % MONO % (test code = 5905-5) 5.7 % EOS % (test code = 713-8) 0.9 % BASO % (test code = 706-2) 0.6 % GRAN MAT x10^3(ANC) (test code = 4279913058) 8.24 10*3/uL 1.99-6.95 H IMM GRAN x10^3 (test code = 9610882624) 0.05 10*3/uL 0.00-0.06 LYMPH x10^3 (test code = 731-0) 1.94 10*3/uL 1.09-3.23 MONO x10^3 (test code = 742-7) 0.63 10*3/uL 0.36-1.02 EOS x10^3 (test code = 711-2) 0.10 10*3/uL 0.06-0.53 BASO x10^3 (test code = 704-7) 0.07 10*3/uL 0.01-0.09 Lab Interpretation (test code = 19413-3) Abnormal [facility] HospitalCOMP. METABOLIC PANEL (41256)2021-02-02 00:42:09* Test Item Value Reference Range Interpretation Comme nts NA (test code = 0255398884) 139 mmol/L 135-145 K (test code = 4918427298) 3.8 mmol/L 3.5-5.0 CL (test code = 3939262620) 101 mmol/L 98-108 CO2 TOTAL (test code = 1549610071) 30 mmol/L 23-31 AGAP (test code = 2875024290) 2-16 BUN (test code = 4660965222) 17 mg/dL 7-23 GLUCOSE (test code = 7107840347) 93 mg/dL 70-110 CREATININE (test code = 6114441834) 0.92 mg/dL 0.60-1.25 TOTAL BILI (test code = 0845713195) 0.8 mg/dL 0.1-1.1 CALCIUM (test code = 6052786513) 9.6 mg/dL 8.6-10.6 T PROTEIN (test code = 2174791378) 7.9 g/dL 6.3-8.2 ALBUMIN (test code = 5350180247) 4.5 g/dL 3.5-5.0 ALK PHOS (test code = 7569958314) 95 U/L 34-122 ALTv (test code = 1742-6) 104 U/L 5-50 H AST(SGOT) (test code = 5335310365) 55 U/L 13-40 H eGFR (test code = 5675766747) mL/min/1.73m2 MERVAT (test code = MERVAT) Association [...] or abnormalities in imaging tests). Lab Interpretation (test code = 44612-0) Abnormal [facility] HospitalMAGNESIUM2021-06-09 00:42:09* Test Item Value Reference Range Interpretation Comme nts MAGNESIUM (test code = 0908739619) 2.0 mg/dL 1.7-2.4 Lab Interpretation (test cod e = 90217-2) Normal [facility] HospitalLIPASE2021-06-09 00:41:48* Test Item Value Reference Range Interpretation Comme nts LIPASE (test code = 2046202750) 101 U/L 0-220 Lab Interpretation (test cod e = 68242-4) Normal [facility] HospitalCBC WITH [id number] 00:33:27* Test Item Value Reference Range Interpretation Comme nts WBC (test code = 6690-2) See_Comment [Automated BioSTLa Veracode] The system which generated this result transmitted reference range: 4.20 - 10.70 10*3/?L. The reference range was not used to interpret this result as normal/abnormal. RBC (test code = 789-8) See_Comment H [Automated BioSTLa Veracode] The system which generated this result transmitted reference range: 4.26 - 5.52 10*6/?L. The reference range was not used to interpret this result as normal/abnormal. HGB (test code = 718-7) 15.7 g/dL 12.2-16.4 HCT (test code = 4544-3) 47.0 % 38.4-49.3 MCV (test code = 787-2) 82.6 fL 81.7-95.6 MCH (test code = 785-6) 27.6 pg 26.1-32.7 MCHC (test code = 786-4) 33.4 g/dL 31.2-35.0 RDW-SD (test code = 49867-2) 39.3 fL 38.5-51.6 RDW-CV (test code = 788-0) 13.2 % 12.1-15.4 PLT (test code = 777-3) See_Comment [Automated messa ge] The system which generated this result transmitted reference range: 150 - 328 10*3/?L. The reference range was not used to interpret this result as normal/abnormal. MPV (test code = 03290-2) 9.3 fL 9.8-13.0 L NRBC/100 WBC (test code = 6880872669) See_Comment [Automated me ssage] The system which generated this result transmitted reference range: 0.0 - 10.0 /100 WBCs. The reference range was not used to interpret this result as normal/abnormal. NRBC x10^3 (test code = 5265243517) <0.01 See_Comment [Automated messa ge] The system which generated this result transmitted reference range: 10*3/?L. The reference range was not used to interpret this result as normal/abnormal. GRAN MAT (NEUT) % (test code = 770-8) 73.6 % IMM GRAN % (test code = 3382072061) 0.20 % LYMPH % (test code = 736-9) 18.7 % MONO % (test code = 5905-5) 6.2 % EOS % (test code = 713-8) 0.8 % BASO % (test code = 706-2) 0.5 % GRAN MAT x10^3(ANC) (test code = 2524361394) 7.22 10*3/uL 1.99-6.95 H IMM GRAN x10^3 (test code = 2673104029) <0.03 0.00-0.06 LYMPH x10^3 (test code = 731-0) 1.84 10*3/uL 1.09-3.23 MONO x10^3 (test code = 742-7) 0.61 10*3/uL 0.36-1.02 EOS x10^3 (test code = 711-2) 0.08 10*3/uL 0.06-0.53 BASO x10^3 (test code = 704-7) 0.05 10*3/uL 0.01-0.09 Lab Interpretation (test code = 37574-1) Abnormal [facility] Notes Date/Time Note Provider Source 2024-02-06 11:12:53 No noted acute distress. Vital signs stable. [phone] (home) [facility] 2023-04-12 20:15:12 Formatting of this n ote might be different from the original. Pt given printed and verbal discharge instructions regarding perforation left tympanic membrain, otitis externa of left ear, encouraged hydration, Prescriptions provided: Cipro/dex ear drops Discussed ibuprofen and to take with food to avoid GI distress. Discussed antibiotic therapy and to take until all completed unless adverse reaction occurs - if occurs, discontinue medication and follow up with pcp/seek medical attention Pt verbalized understanding of instructions, pt awake alert oriented, resp reg unlabored, skin w/d, color appropriate for race, moves all ext well,pt encouraged to follow up with pcp and or ENT Advised to seek medical attention for new/prolonged/worsening of symptoms, Symptoms unchanged Awake, alert oriented, resp reg unlabored, skin w/d, pt leaving amb with steady gait, in no apparent distress, Holli Garcia RN [facility] 2023-04-12 19:13:25 Formatting of this n ote might be different from the original. Pt states that he was seen her last Sunday and dx with left ear infection and placed on Zpak, pt states that he finished the antibiotics on Sunday and on Sunday he began to have pain to the ear and he felt a pop and now has drainage. [facility] 2023-04-12 19:04:00 Formatting of this n ote is different from the original. [facility] [place] Emergency Department Note Patient Name: Ranulfo Gamboa Jr. Date of : 1985 37 year old male Treatment Room: [place] [address] Primary Care Physician: PATIENT DOES NOT HAVE A PCP Patient Escorted by: Family [5] Mode of Arrival: Personal means [1] EMS Treatment Prior to ED Arrival: ACLS SPECIALIST treatment: Medication (comment) [facility]S SPECIALIST treatment comments: manuelito @ 1400 Travel and Exposure Screening: Symptoms Does patient have any of these symptoms?: (not recorded) Exposure Screening Has patient had contact with someone with a communicable disease in the last month?: (not recorded) Diseases exposed to:: (not recorded) Is Patient ?: (not recorded) Exposure Date: (not recorded) Chief Complaint: Chief Complaint Patient presents with Ear Pain History of Present Illness: Ranulfo Gamboa Jr. is a 37 year old male who presents to the ED for evaluation of continuing ear pain X 1 week. Pt reports that he was seen about a week ago and was diagnosed with an ear infection and was prescribed Zithromax abx that seemed to resolve his symptoms after completion of the abx. No fever or chills. Last HS pt reports that the ear "popped" and he had drainage from the ear. No swimming , flying or trauma to the ear. 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: No Ear Pain Location: Left Behind ear: No abnormality Quality: Dull and pressure Severity: Mild Timing: Constant Chronicity: New Context: recent URI Context: not direct blow, not elevation change, not foreign body in ear, not loud noise and not water in ear Relieved by: OTC medications Worsened by: Nothing Associated symptoms: congestion and ear discharge Associated symptoms: no fever, no headaches, no hearing loss, no neck pain, no rash, no rhinorrhea, no sore throat, no tinnitus and no vomiting Risk factors: no recent travel, no chronic ear infection and no prior ear surgery Past Medical History/Immunizations: Past Medical History: Diagnosis Date Colitis Seasonal Allergies Recurrent Ear infections in childhood Tetanus received in last 5 years: No Childhood immunizations: Up-to-date Allergies: Allergies Allergen Reactions Amoxicillin Hives Iv Contrast [Iodine And Iodide Containing Products] Hives Pcn [Penicillins] Hives Past Social History: Tobacco Use Never smoked or used smokeless tobacco. Alcohol Use Yes. Drug Use Never. Past Surgical History: ET Tubes in Ears in childhood Review of Systems: Review of Systems Constitutional: Negative. Negative for chills, diaphoresis, fatigue and fever. HENT: Positive for congestion, ear discharge and ear pain. Negative for hearing loss, rhinorrhea, sore throat and tinnitus. Eyes: Negative. Respiratory: Negative. Breasts: Negative. Cardiovascular: Negative. Gastrointestinal: Negative. Negative for vomiting. Genitourinary: Negative. Musculoskeletal: Negative. Negative for neck pain. Skin: Negative. Negative for rash. Neurological: Negative. Negative for headaches. Psychiatric/Behavioral: Negative. Endocrine: Endocrine negative Physical Exam: ED Triage Vitals [04/12/235] Weight 142.9 kg (315 lb) Actual or estimated Height 1.702 m (5' 7") BP (!) 141/96 Pulse 79 Resp 18 Temp 37.1 ?C (98.8 ?F) Temp source Oral SpO2 95 % Measured on Room air Physical Exam Vitals and nursing note reviewed. Constitutional: General: He is not in acute distress. Appearance: Normal appearance. He is obese. He is not ill-appearing, toxic-appearing or diaphoretic. HENT: Head: Normocephalic and atraumatic. Right Ear: Tympanic membrane, ear canal and external ear normal. Ears: Comments: Perforated TM Canal erythematous,injected + Pain with movement of pinna on left Nose: Congestion present. Mouth/Throat: Mouth: Mucous membranes are moist. Pharynx: Oropharynx is clear. Eyes: Extraocular Movements: Extraocular movements intact. Conjunctiva/sclera: Conjunctivae normal. Pupils: Pupils are equal, round, and reactive to light. Cardiovascular: Rate and Rhythm: Normal rate and regular rhythm. Pulses: Normal pulses. Heart sounds: No murmur heard. Pulmonary: Effort: Pulmonary effort is normal. No respiratory distress. Breath sounds: No stridor. No wheezing, rhonchi or rales. Chest: Chest wall: No tenderness. Abdominal: General: Abdomen is flat. Bowel sounds are normal. There is no distension. Tenderness: There is no abdominal tenderness. There is no right CVA tenderness, left CVA tenderness or guarding. Musculoskeletal: General: No swelling, tenderness or deformity. Normal range of motion. Cervical back: Normal range of motion. No rigidity or tenderness. Lymphadenopathy: Cervical: No cervical adenopathy. Skin: General: Skin is warm. Capillary Refill: Capillary refill takes less than 2 seconds. Coloration: Skin is not jaundiced or pale. Findings: No bruising, erythema, lesion or rash. Neurological: General: No focal deficit present. Mental Status: He is alert and oriented to person, place, and time. Cranial Nerves: No cranial nerve deficit. Sensory: No sensory deficit. Motor: No weakness. Coordination: Coordination normal. Psychiatric: Mood and Affect: Mood normal. Behavior: Behavior normal. Thought Content: Thought content normal. Judgment: Judgment normal. Radiology: No orders to display Lab Results: Lab Results - No data to display Orders and Treatments: No orders of the defined types were placed in this encounter. Orders Placed This Encounter Medications ciprofloxacin-hydrocortison e otic suspension First Provider Eval: ED Events Date/Time Event User Comments 04/12/231933 Medical Screening Begins GEMINI STREETER MD -- 04/12/231933 First Provider Evaluation GEMINI STREETER MD -- No notes of EC Admission Criteria type on file. ED COURSE Diagnosis/Impression as of 04/12/231951 Perforation of left tympanic membrane Otitis externa of left ear, unspecified chronicity, unspecified type Procedures: Procedures MDM: Medical Decision Making Ranulfo Martebrynn Adhikari is a 37 year old male who presents to the ED with left ear ache, drainage from ear Problems Addressed: Otitis externa of left ear, unspecified chronicity, unspecified type: acute illness or injury Details: Will place on Otic Susp Continue Analgesics Counseled to keep ear clean, dry and nothing inserted ine ar except for abx Perforation of left tympanic membrane: acute illness or injury Details: Counseled regarding spontaneosu healing of rupture with time Risk OTC drugs. Prescription drug management. Flowsheet Documentation: Scoring Tools: No data recorded Disposition/Condition: ED Disposition ED Disposition Disch - Home Condition Stable Comment -- Discharge Medications: Patient's Medications START taking these medications CIPROFLOXACIN-HYDROCORTISON E OTIC SUSPENSION Place 3 Drops in left ear in the morning and 3 Drops in the evening. CONTINUE taking these medications which have NOT CHANGED ALBUTEROL INHALE Inhale 2 Puffs as needed for Other (Wheezing). AZITHROMYCIN 250 MG TABLET Take 2 tablets Day 1, then 1 tablet once a day for the next 4 days. IBUPROFEN 600 MG TABLET Take 1 tablet by mouth every 6 (six) hours as needed for Pain (scale 1-3). OMEPRAZOLE (PRILOSEC) 40 MG CAPSULE Take 1 capsule by mouth daily. POLYMYXIN B SULF-TRIMETHOPRIM 10,000 UNIT- 1 MG/ML OPHTHALMIC DROPS Place 1 Drop in right eye every 4 (four) hours. TRAMADOL (ULTRAM) 50 MG TABLET Take 1 tablet by mouth every 6 (six) hours as needed for Pain (scale 4-6). Miguel Johansen PA-C / Nicolás Kellogg MD VIVIANA# [id number] DPS# [id number] Pr Lic.# [id number] NPI# [id number] START taking Modified Medications as Prescribed No medications on file STOP taking these medications No medications on file Follow-up: Electronically signed by: Gemini Streeter MD 04/12/231951 [facility] [employer] 2023-04-06 16:41:38 Formatting of this n ote might be different from the original. Pt given printed and verbal discharge instructions regarding acute left sided otitis media, encouraged hydration. Prescriptions provided. Discussed ibuprofen and to take with food to avoid GI distress. Discussed rotation with tylenol for pain control. Discussed antibiotic therapy and to take until all completed unless adverse reaction occurs - if occurs, discontinue medication and follow up with pcp/seek medical attention. Pt verbalized understanding of instructions, pt awake alert oriented, resp reg unlabored, skin w/d, color appropriate for race, moves all ext well, pt encouraged to follow up with pcp. Advised to seek medical attention for new/prolonged/worsening of symptoms. Symptoms addressed. No meds given in ER noted upon discharge. Pt leaving amb with steady gait, in no apparent distress. [facility] [employer] 2023-04-06 15:29:40 Formatting of this n ote might be different from the original. CC: patient presents to the ER with complaints of left sided ear pain that began yesterday, states he took zyrtec without relief. PMHx: see history Awake, alert, oriented, resp reg unlabored, skin warm and dry, color appropriate for race, moves all ext without difficulty, amb without assistance. Appears in no distress. [facility] [employer] 2023-04-06 15:05:00 Formatting of this n ote is different from the original. [facility] [place] Emergency Department Note Patient Name: Ranulfo Gamboa Jr. Date of : 1985 37 year old male Treatment Room: [place] [address] Primary Care Physician: PATIENT DOES NOT HAVE A PCP Patient Escorted by: Family [5] Mode of Arrival: Personal means [1] EMS Treatment Prior to ED Arrival: Travel and Exposure Screening: Symptoms Does patient have any of these symptoms?: (not recorded) Exposure Screening Has patient had contact with someone with a communicable disease in the last month?: (not recorded) Diseases exposed to:: (not recorded) Is Patient ?: (not recorded) Exposure Date: (not recorded) Chief Complaint: Chief Complaint Patient presents with Ear Pain Left History of Present Illness: Patient here for left era pain and fullness since yesterday. Denies ear drainage. + nasal congestion. Hx of allergies and takes Zyrtec. Denies KHAN, dizziness, fevers, CP, SOB, abdominal pain, vomiting, diarrhea. Pain is fullness and achy, 6/10. Past Medical History/Immunizations: Past Medical History: Diagnosis Date Colitis Allergies: Allergies Allergen Reactions Amoxicillin Hives Iv Contrast [Iodine And Iodide Containing Products] Hives Pcn [Penicillins] Hives Past Social History: Tobacco Use Never smoked or used smokeless tobacco. Alcohol Use Yes. Drug Use Never. Past Surgical History: History reviewed. No pertinent surgical history. Review of Systems: Review of Systems Constitutional: Negative for activity change, appetite change, chills, diaphoresis, fatigue, fever, unexpected weight change, weight gain and weight loss. HENT: Positive for congestion, ear pain, rhinorrhea and sneezing. Negative for dental problem, drooling, ear discharge, facial swelling, hearing loss, mouth sores, nosebleeds, postnasal drip, sinus pressure, sore throat, tinnitus, trouble swallowing and voice change. Eyes: Negative for photophobia, pain, discharge, redness, itching and visual disturbance. Respiratory: Negative for apnea, cough, choking, chest tightness, shortness of breath, wheezing and stridor. Breasts: Negative for discharge, mass, pain and unequal size. Cardiovascular: Negative for chest pain, palpitations and leg swelling. Gastrointestinal: Negative for abdominal distention, abdominal pain, anal bleeding, blood in stool, constipation, diarrhea, nausea, rectal pain and vomiting. Genitourinary: Negative for bladder incontinence, dysuria, urgency, polyuria, frequency, hematuria, flank pain, decreased urine volume, discharge, penile swelling, scrotal swelling, enuresis, difficulty urinating, genital sores, penile pain, testicular pain and nocturia. Musculoskeletal: Negative for arthralgias, back pain, gait problem, joint swelling, myalgias, neck pain and neck stiffness. Skin: Negative for color change, pallor, rash and wound. Neurological: Negative for dizziness, tremors, seizures, syncope, facial asymmetry, speech difficulty, weakness, light-headedness, numbness and headaches. Psychiatric/Behavioral: Negative for agitation, behavioral problems, confusion, decreased concentration, dysphoric mood, hallucinations, self-injury, sleep disturbance and suicidal ideas. The patient is not nervous/anxious and is not hyperactive. Hematological: Negative for adenopathy, cold intolerance and heat intolerance. Does not bruise/bleed easily. Endocrine: Negative for goiter, hair loss, cold intolerance, heat intolerance, polydipsia, polyphagia, polyuria, weight gain and weight loss. Physical Exam: ED Triage Vitals [04/06/23 1530] Weight 143.8 kg (317 lb) Actual or estimated Estimated by patient/family report Height 1.702 m (5' 7") BP (!) 159/101 Pulse 97 Resp 20 Temp 37 ?C (98.6 ?F) Temp source Oral SpO2 93 % Measured on Room air Physical Exam Vitals and nursing note reviewed. Constitutional: General: He is not in acute distress. Appearance: Normal appearance. He is normal weight. He is not ill-appearing, toxic-appearing or diaphoretic. HENT: Head: Normocephalic and atraumatic. Right Ear: Tympanic membrane and ear canal normal. There is no impacted cerumen. Left Ear: Ear canal normal. There is no impacted cerumen. Ears: Comments: + Left TM bulging and cloudy. No drainage or perforation. Nose: Nose normal. No congestion or rhinorrhea. Mouth/Throat: Mouth: Mucous membranes are moist. Pharynx: Oropharynx is clear. No oropharyngeal exudate or posterior oropharyngeal erythema. Eyes: General: No scleral icterus. Right eye: No discharge. Left eye: No discharge. Extraocular Movements: Extraocular movements intact. Conjunctiva/sclera: Conjunctivae normal. Pupils: Pupils are equal, round, and reactive to light. Neck: Vascular: No carotid bruit. Cardiovascular: Rate and Rhythm: Normal rate and regular rhythm. Pulses: Normal pulses. Heart sounds: Normal heart sounds. No murmur heard. No friction rub. No gallop. Pulmonary: Effort: Pulmonary effort is normal. No respiratory distress. Breath sounds: Normal breath sounds. No stridor. No wheezing, rhonchi or rales. Chest: Chest wall: No tenderness. Abdominal: General: Abdomen is flat. Bowel sounds are normal. There is no distension. Palpations: Abdomen is soft. There is no mass. Tenderness: There is no abdominal tenderness. There is no right CVA tenderness, left CVA tenderness, guarding or rebound. Hernia: No hernia is present. Musculoskeletal: General: No swelling, tenderness, deformity or signs of injury. Normal range of motion. Cervical back: Normal range of motion and neck supple. No rigidity or tenderness. Right lower leg: No edema. Left lower leg: No edema. Lymphadenopathy: Cervical: No cervical adenopathy. Skin: General: Skin is warm and dry. Capillary Refill: Capillary refill takes less than 2 seconds. Coloration: Skin is not jaundiced or pale. Findings: No bruising, erythema, lesion or rash. Neurological: General: No focal deficit present. Mental Status: He is alert and oriented to person, place, and time. Mental status is at baseline. Cranial Nerves: No cranial nerve deficit. Sensory: No sensory deficit. Motor: No weakness. Coordination: Coordination normal. Gait: Gait normal. Deep Tendon Reflexes: Reflexes normal. Psychiatric: Mood and Affect: Mood normal. Behavior: Behavior normal. Thought Content: Thought content normal. Judgment: Judgment normal. Radiology: No orders to display Lab Results: Lab Results - No data to display EKG: If EKG completed, see Procedure Note. Orders and Treatments: No orders of the defined types were placed in this encounter. No orders of the defined types were placed in this encounter. First Provider Eval: ED Events Date/Time Event User Comments 04/06/231553 Medical Screening Begins DIONE MO DO -- 04/06/231553 First Provider Evaluation CHEPE GONZALEZ DIONE HARPER -- No notes of EC Admission Criteria type on file. ED COURSE Diagnosis/Impression as of 04/06/23 1614 Acute left otitis media Procedures: Procedures MDM: Medical Decision Making Patient here for left era pain and fullness since yesterday. Denies ear drainage. + nasal congestion. Hx of allergies and takes Zyrtec. Denies KHAN, dizziness, fevers, CP, SOB, abdominal pain, vomiting, diarrhea. Pain is fullness and achy, 6/10. Amount and/or Complexity of Data Reviewed Discussion of management or test interpretation with external provider(s): Patient with evidence of acute otitis media. Risk Prescription drug management. Flowsheet Documentation: Scoring Tools: No data recorded Dx: Left acute otitis media. Disposition/Condition: Discharged home. Anjali Mo D.O. EM Physician RTI Billing ID #[id number] Anjali Mo DO 04/06/23 1608 [facility]
--- NOTE | 2024-04-03 02:49 | EDPHYS ---
Physician Documentation [facility] Name: Zafar Guerin Jr Age: 38 yrs Sex: Male : 1985 Arrival Date: 04/03/2024 Time: 02:24 Bed 20 Private MD: ED Physician Flavio Guzman HPI: 04/03 02:45 This 38 yrs old Male presents to ER via Ambulatory with complaints of Sore sp3 Throat, Ear Pain, Jaw Pain. 02:45 38-year-old male with history of asthma that presents with left ear pain worse with sp3 movement of the ear. Pain extends into his pinna and left TMJ. 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 He does this regularly. He denies any fever, headache, oral lesions, neck pain, shortness of breath, chest pain, rash, or any other signs or symptoms on ROS at this time.. Historical: - Allergies: 02:41 Amoxicillin; jb4 02:41 Iodine (Hives); jb4 02:41 PENICILLINS; jb4 - PMHx: 02:41 Asthma; jb4 - PSHx: 02:41 ear tubes; jb4 - Immunization history:: Adult Immunizations unknown. - Infectious Disease History:: Denies. - Social history:: Smoking status: Patient denies any tobacco usage or history of. Patient uses alcohol, occasionally. ROS: 02:46 Constitutional: Negative for fever, chills, and weight loss, Eyes: Negative for injury, sp3 pain, redness, and discharge, Neck: Negative for injury, pain, and swelling, Cardiovascular: Negative for chest pain, palpitations, and edema, Respiratory: Negative for shortness of breath, cough, wheezing, and pleuritic chest pain, Abdomen/GI: Negative for abdominal pain, nausea, vomiting, diarrhea, and constipation, Back: Negative for injury and pain, 02:46 All other systems are negative, Exam: 02:47 Constitutional: This is a well developed, well nourished patient who is awake, alert, sp3 and in no acute distress. Head/Face: Normocephalic, atraumatic. Eyes: Pupils equal round and reactive to light, extra-ocular motions intact. Lids and lashes normal. Conjunctiva and sclera are non-icteric and not injected. Cornea within normal limits. Periorbital areas with no swelling, redness, or edema. Neck: Trachea midline, no thyromegaly or masses palpated, and no cervical lymphadenopathy. Supple, full range of motion without nuchal rigidity, or vertebral point tenderness. No Meningismus. Chest/axilla: Normal chest wall appearance and motion. Nontender with no deformity. No lesions are appreciated. Cardiovascular: Regular rate and rhythm with a normal S1 and S2. No gallops, murmurs, or rubs. Normal PMI, no JVD. No pulse deficits. Respiratory: Lungs have equal breath sounds bilaterally, clear to auscultation and percussion. No rales, rhonchi or wheezes noted. No increased work of breathing, no retractions or nasal flaring. Neuro: Awake and alert, GCS 15, oriented to person, place, time, and situation. Cranial nerves II-XII grossly intact. Motor strength 5/5 in all extremities. Sensory grossly intact. Cerebellar exam normal. Normal gait. Psych: Awake, alert, with orientation to person, place and time. Behavior, mood, and affect are within normal limits. 02:47 ENT: Left external auditory canal swollen and edematous with mild discharge. Tympanic membrane is normal.. Vital Signs: 02:39 BP 187 / 110; Pulse 80; Resp 16; Temp 98(TE); Pulse Ox 95% on R/A; Weight 142.43 kg jb4 (R); Height 5 ft. 7 in. (R); Pain 9/10; 03:14 BP 180 / 125; Pulse 73; Resp 17; Temp 98; Pulse Ox 95% on R/A; Pain 5/10; tm6 02:39 Body Mass Index 49.18 (142.43 kg, 170.18 cm) jb4 02:39 Pain Scale: Adult jb4 03:14 Pain Scale: Adult tm6 MDM: 02:31 Patient medically screened. sp3 02:48 Data reviewed: vital signs, nurses notes. ED course: 38-year-old male with left sp3 external ear pain. I believe patient has externa secondary to otitis his ear protection. Will place him on steroid and antibiotic drops and instructed him to use over the ear ear protection until he is improved. Follow-up with ENT and/or PCP as needed. No further intervention in the ED indicated.. Administered Medications: 03:16 Drug: Acetaminophen PO 1000 mg PO once Route: PO; tm6 03:16 Drug: predniSONE PO 40 mg PO once Route: PO; tm6 Disposition Summary: 04/03/24 02:49 Discharge Ordered Notes: Location: Home sp3 Condition: Stable sp3 Diagnosis - Acute actinic otitis externa, left ear sp3 Discharge Instructions: - Discharge Summary Sheet sp3 - Otitis Externa sp3 Forms: - Medication Reconciliation Form sp3 - Antibiotic Education sp3 - Prescription Opioid Use sp3 - Patient Portal Instructions sp3 - Leadership Thank You Letter sp3 - Work release form tm6 Prescriptions: - Ciprodex 0.3-0.1 % Otic drops, suspension - instill 4 drops OTIC route every 12 hours for 7 days , for ears ONLY; 10 sp3 milliliter; Refills: 0, Product Selection Permitted Signatures: Michael Serrano, RN RN jb4 Flavio Guzman MD MD sp3 Ryan Cline RN RN tm6
--- NOTE | 2024-04-03 02:49 | ER ---
Nurse's Notes [facility] Name: Zafar Guerin Jr Age: 38 yrs Sex: Male : 1985 Arrival Date: 04/03/2024 Time: 02:24 Bed 20 Private MD: Diagnosis: Acute actinic otitis externa, left ear Presentation: 04/03 02:39 Chief complaint: Patient states: I was at work and took my ear plug out and now my left jb4 ear is hurting terribly and now my jaw hurts and I cannot sleep. Coronavirus screen: At this time, the client does not indicate any symptoms associated with coronavirus-19. Ebola Screen: No symptoms or risks identified at this time. Initial Sepsis Screen: Does the patient meet any 2 criteria? No. Patient's initial sepsis screen is negative. Does the patient have a suspected source of infection? No. Patient's initial sepsis screen is negative. Risk Assessment: Do you want to hurt yourself or someone else? Patient reports no desire to harm self or others. Onset of symptoms was April 03, 2024. Transition of care: patient was not received from another setting of care. 02:39 Method Of Arrival: Ambulatory jb4 02:39 Acuity: NUBIA 4 jb4 Historical: - Allergies: 02:41 Amoxicillin; jb4 02:41 Iodine (Hives); jb4 02:41 PENICILLINS; jb4 - PMHx: 02:41 Asthma; jb4 - PSHx: 02:41 ear tubes; jb4 - Immunization history:: Adult Immunizations unknown. - Infectious Disease History:: Denies. - Social history:: Smoking status: Patient denies any tobacco usage or history of. Patient uses alcohol, occasionally. Screenin:45 [facility] ED Fall Risk Assessment (Adult) History of falling in the last 3 months, tm6 including since admission No falls in past 3 months (0 pts) Confusion or Disorientation No (0 pts) Intoxicated or Sedated No (0 pts) Impaired Gait No (0 pts) Mobility Assist Device Used No (0 pt) Altered Elimination No (0 pt) Score/Fall Risk Level 0 - 2 = Low Risk Oriented to surroundings, Maintained a safe environment, Educated pt \T\ family on fall prevention, incl call for assistance when getting out of bed. Abuse screen: Denies threats or abuse. Denies injuries from another. Nutritional screening: No deficits noted. Tuberculosis screening: No symptoms or risk factors identified. Assessment: 02:45 General: Appears in no apparent distress. uncomfortable, Behavior is calm, cooperative. tm6 Pain: Complains of pain in left ear Pain radiates to left jaw Pain currently is 8 out of 10 on a pain scale. Quality of pain is described as aching. Neuro: Level of Consciousness is awake, alert, obeys commands, Oriented to person, place, time, situation. Cardiovascular: Patient's skin is warm and dry. Respiratory: Airway is patent Respiratory effort is even, unlabored, Respiratory pattern is regular, symmetrical, Breath sounds are clear. GI: No signs and/or symptoms were reported involving the gastrointestinal system. Abdomen is round. : No signs and/or symptoms were reported regarding the genitourinary system. EENT: Throat is clear Reports pain in left ear. Derm: No signs and/or symptoms reported regarding the dermatologic system. Musculoskeletal: No signs and/or symptoms reported regarding the musculoskeletal system. 03:15 Reassessment: Patient appears in no apparent distress at this time. tm6 Vital Signs: 02:39 BP 187 / 110; Pulse 80; Resp 16; Temp 98(TE); Pulse Ox 95% on R/A; Weight 142.43 kg jb4 (R); Height 5 ft. 7 in. (R); Pain 9/10; 03:14 BP 180 / 125; Pulse 73; Resp 17; Temp 98; Pulse Ox 95% on R/A; Pain 5/10; tm6 02:39 Body Mass Index 49.18 (142.43 kg, 170.18 cm) jb4 02:39 Pain Scale: Adult jb4 03:14 Pain Scale: Adult tm6 ED Course: 02:30 Patient arrived in ED. gm2 02:31 Flavio Guzman MD is Attending Physician. sp3 02:35 Ryna Cline RN is Primary Nurse. tm6 02:41 Triage completed. jb4 02:41 Arm band placed on right wrist. jb4 02:45 Patient has correct armband on for positive identification. Bed in low position. Call tm6 light in reach. Side rails up X 1. Provided Education on: use of call benjamin. Client placed on continuous cardiac and pulse oximetry monitoring. NIBP monitoring applied. Pulse ox on. NIBP on. Door closed. Noise minimized. Lights dimmed. 03:15 No provider procedures requiring assistance completed. Patient did not have IV access tm6 during this emergency room visit. Administered Medications: 03:16 Drug: Acetaminophen PO 1000 mg PO once Route: PO; tm6 03:16 Drug: predniSONE PO 40 mg PO once Route: PO; tm6 Medication: 02:45 VIS not applicable for this client. tm6 Outcome: 02:49 Discharge ordered by MD. [email or web address] 03:16 Discharged to home ambulatory, tm6 03:16 Condition: stable 03:16 Discharge instructions given to patient, Instructed on discharge instructions, follow up and referral plans. medication usage, Demonstrated understanding of instructions, follow-up care, medications, Prescriptions given X 1, 03:16 Patient left the ED. tm6 Signatures: Michael Serrano, RN RN jb4 Flavio Guzman MD MD sp3 Lilian Alvarez 2 Ryan Cline RN RN tm6
[2024-04-03] MEDS ORDERED: ACETAMINOPHEN 500 MG TAB ONE (03:08)
[2024-04-03] MEDS ORDERED: predniSONE 20 MG TAB ONE (03:08)
[2024-04-03 03:21] VITALS: TEMP 98; O2SAT 95
[2024-04-03 03:22] VITALS: BP 180/125
== END 2024-04-03 03:16 | disposition home or self-care (01) ==
LOC: ER 02:24
DX: H60.512 Acute actinic otitis externa, left ear (principal)
CPT/HCPCS: 99284; J7512

== ENCOUNTER 2025-06-01 08:44 | Emergency (ER) | payer SELFPAY ==
--- OUTSIDE RECORDS SUMMARY | 2025-06-01 08:49 | XMS REPORT | Continuity of Care Document ---
Author Name Unknown Address [address] [facility] [address] [place] [address] [facility] [place] Address [address] [facility] [address] [place] [address] Care Team Providers Care Supplier Relationship Director Name Role Phone Pcp, Patient Does Not Have A Primary Care Physic contreras JUANITA MCGEE Attending Clinician Unavailable Campaigns, Generic Provider Attending Clinician Unavailable DAVID VELAZQUEZ Attending Clinician Unavailable DAVID VELAZQUEZ Attending Clinician Unavailable DUC ROBLES Attending Clinician Unavailable LAB47 Attending Clinician Unavailable DEEPTI DAVIS Attending Clinician Unavailable MD HUGO Attending Clinician Unavailab le LAB90 Attending Clinician Unavailable GEMINI STREETER Attending Clinician Unavailable Gemini Streeter MD Attending Clinician [phone] ANJALI MO Attending Clinician Unavailable ANJALI MO Attending Clinician Unavailable Anjali Mo DO Attending Clinician Radha Hughes RN Attending Clinician Unavaila ble Only, Ang Db Test Attending Clinician UnavailGiovanna Kevin MD Attending Clinician GIOVANNA THORNE Attending Clinician Unavailable Juanita Mcgee MD Attending Clinician + [phone] Gramm POLICE MATRON, Peg A Attending Clinician [phone] Doctor Unassigned, [place] Attending Clinician U andrew Villafana RN, Marisel Hay Attending Clinician Unavail zafar Bermudez MD, Campos Attending Clinician + [phone] Shayan MEHTA, Chris Attending Clinician +[phone] Monty Milner MD Attending Clinician + [phone] Brenda Perez Attending Clinician + Corona Reed DO Attending Clinician + [phone] Provider, [facility] Attending Clinician Un available Nica Headley Attending Clinician [phone] NICA NAVARRO Attending Clinician Unavailable [facility] Attending Clinician Unav ailable Jaimee Alejo Attending Clinician [phone] JAIMEE MANDUJANO Attending Clinician Unavailable JUANITA MCGEE Admitting Clinician Unavailable DAVID VELAZQUEZ Admitting Clinician Unavailable Monty Milner MD Admitting Clinician + [phone] Payers Payer Name Policy Type Policy Number Effective Date Expirati on Date Source [facility] [id number] 2018 00:00:00 [facility] 2 [id number] 2024 00:00:00 [facility] MARA DAUGHERTY COPAY FOCUS 9 [id number] 2023 00:00:00 [facility] 2 [id number] 2023 00:00:00 Problems Condition Name Condition Details Condition Category Status Onset Date Resolution Date Last Treatment Date Treating Clinician Comments Source Allergic rhinitis Allergic rhinitis Disease Active 11-21 00:00: 00 Laura Mancera Externa satnam Prediabete s Prediabete s Disease Active 11-21 00:00: 00 Laura Mancera Externa l Obesity Obesity Disease Active 11-21 00:00: 00 Laura Mancera Externa satnam Asthma ([facility]) Asthma ([facility]) Disease Active 11-21 00:00: 00 Laura Jett - Externa l IBD (inflammat ory bowel disease) IBD (inflammat ory bowel disease) Disease Active 03-01 00:00: 00 [facility] Morbid obesity with body mass index of 40.0-49.9 Morbid obesity with body mass index of 40.0-49.9 Disease Active 02-28 00:00: 00 [facility] Acute appendicit is Acute appendicit is Disease Active 02-28 00:00: 00 [facility] Morbid obesity with body mass index of 40.0-49.9 Morbid obesity with body mass index of 40.0-49.9 Disease Active 02-28 00:00: 00 [facility] No known active problems No known active problems Disease [facility] Allergies, Adverse Reactions, Alerts Allergy Name Allergy Type Status Severity Reaction(s) Onset Date Inactive Date Treating Clinician Comments Source Amoxicil amando Propensi ty to adverse reaction s Active Nausea and Vomiting 11-19 00:00: 00 Laura Marquesold - Externa l Penicill in G Propensi ty to adverse reaction s Active Nausea and Vomiting 11-19 00:00: 00 Laura Jett - Externa l IODINE AND IODIDE CONTAINI NG PRODUCTS Drug Class Active Hives 02-28 00:00: 00 [facility] Iodine And Iodide Containi ng Products Propensi ty to adverse reaction s Active Hives 02-28 00:00: 00 [facility] Iodine Propensi ty to adverse reaction s Active Hives 02-28 00:00: 00 Laura Marquesold - Externa l AMOXICIL AMANDO DRUG INGREDI Active Hives 02-26 00:00: 00 [facility] PENICILL INS Drug Class Active Hives 02-26 00:00: 00 [facility] Penicill ins Propensi ty to adverse reaction s Active Hives 02-26 00:00: 00 [facility] Penicill ins Propensi ty to adverse reaction s Active Hives 02-26 00:00: 00 [facility] Amoxicil amando Propensi ty to adverse reaction s Active Hives 02-26 00:00: 00 [facility] Penicill ins Propensi ty to adverse reaction s Active Hives 02-26 00:00: 00 [facility] Social History Social Habit Start Date Stop Date Quantity Comments Source Gender identity [facility] History of Occupation [employer] [facility] [facility] [employer] Exposure to SARS-CoV-2 (event) Yes [facility] Sexual orientation K naomie Jett - External Education 2023-11-22 00:00:00 2023-11-22 00:00:00 16 Laura Jett - External Alcohol Comment 2023-11-22 00:00:00 2023-11-22 00:00:00 seldomly Laura Marquesold - External Alcohol intake 2023-11-22 00:00:00 2023-11-22 00:00:00 .29 /d Laura Jett - External History of Social function 2023-11-20 00:00:00 2023-11-20 00:00:00 Laura Jeraldold - External Tobacco use and exposure 2023-11-20 00:00:00 2023-11-20 00:00:00 Smokeless tobacco non-user Laura Jeraldold - External Alcoholic beverage intake 2023-04-15 00:00:00 2023-04-15 00:00:00 Current drinker of alcohol (finding) [facility] Sex assigned at 1985 00:00:00 1985 00:00:00 Laura ybold - External Smoking Status Start Date Stop Date Source Never smoked tobacco Laura owenjason - External Medications Ordered Medication Name Filled Medication Name Start Date Stop Date Current Medication? Ordering Clinician Indication Dosage Frequency Signature (SIG) Comments Components Source ALBUTEROL INHALE 02-22 18:43: 10 Yes 2{puff} Inhale 2 Puffs as needed for Other (Wheezing) . [facility] methylPREDN ISolone (MEDROL, SAMUEL,) 4 mg tablets 02-22 00:00: 00 Yes [id number] Take by mouth SEE-INSTRU CTIONS. follow package directions [facility] benzonatate 100 mg capsule 02-22 00:00: 00 Yes [id number] 200mg Take 2 capsules by mouth 3 times daily as needed for Cough. [facility] azithromyci n 250 mg tablet 02-22 00:00: 00 02-28 04:59 :00 No [id number] 250mg Take 1 tablet by mouth SEE-INSTRU CTIONS for 5 days. Take 500 mg day 1, then 250 mg days 2 to 5. [facility] Metformin HCl 1000 MG oral Tablet 02-05 00:00: 00 Yes [id number] 1000mg Take 1 tablet (1,000 mg total) by mouth in the morning and 1 tablet (1,000 mg total) in the evening. Take with meals. Laura hay Metformin HCl 500 MG oral Tablet 12-11 00:00: 00 02-05 00:00 :00 No [id number] 500mg Take 1 tablet (500 mg total) by mouth in the morning and 1 tablet (500 mg total) in the evening. Take with meals. Laura hay Cetirizine HCl (ZyrTEC Allergy) 10 MG oral Capsule 11-21 00:00: 00 Yes [id number] 10mg Take 1 capsule (10 mg total) by mouth daily. Laura hay Montelukast (Singulair) 10 MG oral Tablet tablet 11-21 00:00: 00 Yes [id number] 10mg Take 1 tablet (10 mg total) by mouth nightly. Laura hay Albuterol HFA 108 (90 Base) MCG/ACT IN AERS 11-21 00:00: 00 Yes [id number] 2{puff} Q.25D Inhale 2 puffs into the lungs every 6 hours as needed for wheezing or shortness of breath. Laura hay ciprofloxac in-hydrocor tisone otic suspension 04-12 00:00: 00 Yes [id number] 02167 3[drp] Place 3 Drops in left ear in the morning and 3 Drops in the evening. [facility] ibuprofen 600 mg tablet 04-06 00:00: 00 Yes [id number] 600mg Take 1 tablet by mouth every 6 (six) hours as needed for Pain (scale 1-3). [facility] azithromyci n 250 mg tablet 04-06 00:00: 00 02-22 00:00 :00 No [id number] Take 2 tablets Day 1, then 1 tablet once a day for the next 4 days. [facility] predniSONE 20 mg tablet 03-04 00:00: 00 03-09 04:59 :00 No [id number] 40mg Take 2 tablets by mouth daily for 4 days. [facility] ALBUTEROL INHALE 03-03 20:37: 21 Yes 2{puff} Inhale 2 Puffs as needed for Other (Wheezing) . [facility] ALBUTEROL INHALE 03-03 15:37: 21 Yes 2{puff} Inhale 2 Puffs as needed for Other (Wheezing) . [facility] ciprofloxac in HCl 500 mg tablet 03-03 00:00: 00 03-11 04:59 :00 No [id number] 500mg Take 1 tablet by mouth every 12 (twelve) hours for 7 days. [facility] predniSONE 10 mg tablet 03-03 00:00: 00 03-09 04:59 :00 No [id number] 30mg Take 3 tablets by mouth daily for 5 days. [facility] predniSONE 20 mg tablet 03-03 00:00: 00 03-09 04:59 :00 No [id number] 20mg Take 1 tablet by mouth daily for 5 days. [facility] predniSONE 10 mg tablet 03-03 00:00: 00 03-09 04:59 :00 No [id number] 10mg Take 1 tablet by mouth daily for 5 days. [facility] predniSONE (DELTASONE) tablet 40 mg 03-02 20:15: 00 Yes 40mg 40 mg, Oral, DAILY, First dose on Sun03/02/21 at 1515, Until Discontinu ed, Routine [facility] morpHINE injection 4 mg 03-02 02:04: 31 Yes 4mg 4 mg, Slow IV Push, Q4HPRN, Starting Sun03/01/21 at 2104, Until Discontinu ed, Routine, Pain (scale 7-10) [facility] pantoprazol e (PROTONIX) EC tablet 40 mg 03-01 14:00: 00 Yes 40mg 40 mg, Oral, DAILY, First dose on Sun03/01/21 at 0900, Until Discontinu ed, Routine [facility] NaCl 0.9% (NS) IV infusion 1,000 mL 03-01 01:15: 00 Yes 1000mL at 125 mL/hr, IV Infusion, CONTINUOUS , Starting Sun02/28/21 at 2015, Until Discontinu ed, Routine [facility] ondansetron (ZOFRAN (PF)) injection 4 mg 03-01 01:03: 59 Yes 4mg 4 mg, Slow IV Push, Q6HPRN, Starting Sun02/28/21 at 2002, Until Discontinu ed, Routine, Nausea and Vomiting (N/V) [facility] morpHINE injection 4 mg 03-01 01:03: 56 03-02 01:02 :56 No 4mg 4 mg, Slow IV Push, Q4HPRN, Starting Sun02/28/21 at 2002, Until Sun03/01/21 at 2001, Routine, Pain (scale 7-10) [facility] HYDROcodone -acetaminop hen (NORCO 5) 5-325 mg tablet 1 tablet 03-01 01:03: 51 03-03 01:02 :51 No 1{tbl} 1 tablet, Oral, Q6HPRN, Starting Sun02/28/21 at 2002, Until Sun03/02/21 at 2001, Routine, Pain (scale 4-6) [facility] acetaminoph en (TYLENOL) tablet 650 mg 03-01 01:03: 47 Yes 650mg 650 mg, Oral, Q6HPRN, Starting Sun02/28/21 at 2002, Until Discontinu ed, Routine, Pain (scale 1-3) [facility] metroNIDAZO LE in NaCl (iso-os) (FLAGYL I.V.) RTU IV infusion 500 mg 03-01 01:00: 00 Yes 500mg 500 mg, IV Infusion, Q8H ABX, First dose on Sun02/28/21 at 1999, Until Discontinu ed, 100 mL
Reas on for Anti-Infec tive: Documented Infection< br>Documen lien Infection Site: Abdominal< br>Duratio n of Therapy: Other (see Comments) [facility] ciprofloxac in in 5 % dextrose (CIPRO) piggyback 400 mg 03-01 01:00: 00 Yes 400mg 400 mg, IV Piggyback, Administer over 60 Minutes, Q12H ABX, First dose on Sun02/28/21 at 1999, Until Discontinu ed, MERI
Re ason for Anti-Infec tive: Documented Infection< br>Documen lien Infection Site: Abdominal< br>Duratio n of Therapy: Other (see Comments) [facility] diphenhydrA MINE (BENADRYL) injection 25 mg 02-28 22:11: 00 02-28 22:11 :00 No 25mg 25 mg, Slow IV Push, ONCE, 1 dose, Sun02/28/21 at 1715, STAT [facility] methylpredn isolone sod succ (SOLU-MEDRO L) injection 125 mg 02-28 22:10: 00 02-28 22:11 :00 No 125mg 125 mg, Slow IV Push, ONCE, 1 dose, Sun02/28/21 at 1715, STAT [facility] iopamidol (ISOVUE 370-500 mL) injection 120 mL 02-28 21:51: 00 02-28 21:51 :00 No [id number] 120mL 120 mL, Intravenou s, ONCE, 1 dose, Sun02/28/21 at 1700, Routine [facility] ondansetron (ZOFRAN (PF)) injection 4 mg 02-02 01:15: 00 02-02 00:15 :00 No 4mg 4 mg, Slow IV Push, ONCE, 1 dose[facility] 0.[facility]% (NS) bolus infusion 1,000 mL 02-02 00:15: 00 02-02 01:09 :00 No 1000mL at 999 mL/hr, 1,000 mL, IV Infusion, ONCE, 1 dose, Sun02/01/21 at 1915, [facility] ondansetron (ZOFRAN ODT) 4 mg disintegrat ing tablet 02-01 00:00: 00 Yes [id number] 4mg Take 1 tablet by mouth every 8 (eight) hours as needed for Nausea and Vomiting (N/V). [facility] polymyxin B sulf-trimet hoprim 10,000 unit- 1 mg/mL ophthalmic drops 01-18 00:00: 00 Yes [id number] 1[drp] Place 1 Drop in right eye every 4 (four) hours. [facility] methylPREDN ISolone (MEDROL, SAMUEL,) 4 mg tablets 01-18 00:00: 00 03-03 00:00 :00 No [id number] Take by mouth SEE-INSTRU CTIONS. follow package directions [facility] clindamycin 150 mg capsule 01-18 00:00: 00 01-26 04:59 :00 No [id number] 300mg Take 2 capsules by mouth 4 (four) times daily for 7 days. [facility] olopatadine (PATANOL) 0.1 % ophthalmic solution 2019-08 00:00: 00 08-02 05:59 :00 No [id number] 1[drp] Place 1 Drop in both eyes 2 (two) times daily for 30 days. [facility] levocetiriz ine 5 mg tablet 2019-08 00:00: 08-02 05:59 :00 No [id number] 5mg Take 1 tablet by mouth every evening for 30 days. [facility] fluticasone propionate 50 mcg/actuati on nasal spray 2019-08 00:00: 00 08-02 05:59 :00 No [id number] 2{spray } Use 2 Sprays in each nostril daily for 30 days. [facility] ALBUTEROL INHALE 02-10 14:17: 56 Yes 2{puff} Inhale 2 Puffs as needed for Other (Wheezing) . [facility] albuterol 90 mcg/actuati on inhaler 02-10 00:00: 00 03-13 04:59 :00 No [id number] 2{puff} Inhale 2 Puffs every 6 (six) hours as needed for Wheezing or Shortness of Breath for up to 30 days. [facility] benzonatate 200 mg capsule 02-10 00:00: 00 02-21 04:59 :00 No [id number] 200mg Take 1 capsule by mouth 3 (three) times daily as needed for Cough for up to 10 days. [facility] omeprazole (PRILOSEC) 40 mg capsule 03-06 00:00: 00 Yes 40mg Take 1 capsule by mouth daily. [facility] traMADOL (ULTRAM) 50 mg tablet 02-26 00:00: 00 Yes 50mg Take 1 tablet by mouth every 6 (six) hours as needed for Pain (scale 4-6). Miguel Johansen PA-C / Nicolás Kellogg MD VIVIANA# [id number] DPS# [id number] x Lic.# [id number] NPI# [id number] [facility] Immunizations Ordered Immunization Name Filled Immunization Name Date Status Comments Source Tdap- (Boostrix, Adacel) Unknown Completed Laura Mancera External Tdap- (Boostrix, Adacel) Unknown Completed Laura Mancera External Vital Signs Vital Name Observation Time Observation Value Comments Elicia bach Systolic blood pressure 2025-02-22 23:42:21 132 mm[Hg] [facility] Diastolic blood pressure 2025-02-22 23:42:21 79 mm[Hg] [facility] Heart rate 2025-02-22 23:42:21 70 /min [facility] Body temperature 2025-02-22 23:42:21 37.28 Tami [facility] Respiratory rate 2025-02-22 23:42:21 18 /min [facility] Oxygen saturation in Arterial blood by Pulse oximetry 2025-02-22 23:42:21 98 /min [facility] Body height 2025-02-22 21:57:00 172.7 cm [facility] Body weight 2025-02-22 21:57:00 142.429 kg [facility] BMI 2025-02-22 21:57:00 47.74 kg/m2 [facility] Systolic blood pressure 2024-02-06 16:12:00 126 mm[Hg] Laura Seybold - External Diastolic blood pressure 2024-02-06 16:12:00 84 mm[Hg] Laura Seybold - External Heart rate 2024-02-06 16:12:00 70 /min Laura Seybold - External Body temperature 2024-02-06 16:12:00 36.5 Tami Laura Maciasybold - External Respiratory rate 2024-02-06 16:12:00 16 /min Laura Maciasybold - External Body height 2024-02-06 16:12:00 170.2 cm Laura Jett - External Body weight 2024-02-06 16:12:00 149.687 kg Laura Maciasybold - External BMI 2024-02-06 16:12:00 51.69 kg/m2 Laura Maciasybold - External Oxygen saturation in Arterial blood by Pulse oximetry 2024-02-06 16:12:00 96 /min Laura Seybold - External Systolic blood pressure 2023-11-22 15:20:00 135 mm[Hg] Laura Seybold - External Diastolic blood pressure 2023-11-22 15:20:00 83 mm[Hg] Laura Seybold - External Heart rate 2023-11-22 15:20:00 69 /min Laura Seybold - External Body temperature 2023-11-22 15:20:00 36.5 Tami Laura Maciasybold - External Body height 2023-11-22 15:20:00 170.2 cm Laura Jett - External Body weight 2023-11-22 15:20:00 151.32 kg Lauar Jett - External BMI 2023-11-22 15:20:00 52.25 kg/m2 Laura Jett - External Oxygen saturation in Arterial blood by Pulse oximetry 2023-11-22 15:20:00 94 /min Laura Jett - External Systolic blood pressure 2023-04-13 00:15:00 141 mm[Hg] [facility] Diastolic blood pressure 2023-04-13 00:15:00 96 mm[Hg] [facility] Heart rate 2023-04-13 00:15:00 79 /min [facility] Body temperature 2023-04-13 00:15:00 37.11 Tami [facility] Respiratory rate 2023-04-13 00:15:00 18 /min [facility] Body height 2023-04-13 00:15:00 170.2 cm [facility] Body weight 2023-04-13 00:15:00 142.883 kg [facility] BMI 2023-04-13 00:15:00 49.34 kg/m2 [facility] Oxygen saturation in Arterial blood by Pulse oximetry 2023-04-13 00:15:00 95 /min [facility] Systolic blood pressure 2023-04-06 21:40:00 157 mm[Hg] [facility] Diastolic blood pressure 2023-04-06 21:40:00 105 mm[Hg] [facility] Heart rate 2023-04-06 21:40:00 87 /min [facility] Respiratory rate 2023-04-06 21:40:00 18 /min [facility] Oxygen saturation in Arterial blood by Pulse oximetry 2023-04-06 21:40:00 98 /min [facility] Body temperature 2023-04-06 20:30:00 37 Tami [facility] Body height 2023-04-06 20:30:00 170.2 cm [facility] Body weight 2023-04-06 20:30:00 143.79 kg [facility] BMI 2023-04-06 20:30:00 49.65 kg/m2 [facility] Systolic blood pressure 2021-03-10 14:31:00 130 mm[Hg] [facility] Diastolic blood pressure 2021-03-10 14:31:00 88 mm[Hg] [facility] Heart rate 2021-03-10 14:31:00 80 /min [facility] Body temperature 2021-03-10 14:31:00 36.78 Taim [facility] Respiratory rate 2021-03-10 14:31:00 20 /min [facility] Body height 2021-03-10 14:31:00 167.6 cm [facility] Body weight 2021-03-10 14:31:00 128.549 kg [facility] BMI 2021-03-10 14:31:00 45.74 kg/m2 [facility] Oxygen saturation in Arterial blood by Pulse oximetry 2021-03-10 14:31:00 98 /min [facility] Systolic blood pressure 2021-03-03 17:20:00 132 mm[Hg] [facility] Diastolic blood pressure 2021-03-03 17:20:00 94 mm[Hg] [facility] Heart rate 2021-03-03 17:20:00 73 /min [facility] Body temperature 2021-03-03 17:20:00 36.17 Tami [facility] Respiratory rate 2021-03-03 17:20:00 20 /min [facility] Oxygen saturation in Arterial blood by Pulse oximetry 2021-03-03 17:20:00 95 /min [facility] Body height 2021-03-01 02:44:00 170 cm [facility] Body weight 2021-03-01 02:44:00 127 kg [facility] BMI 2021-03-01 02:44:00 43.94 kg/m2 [facility] Systolic blood pressure 2021-02-02 00:20:00 137 mm[Hg] [facility] Diastolic blood pressure 2021-02-02 00:20:00 84 mm[Hg] [facility] Heart rate 2021-02-02 00:20:00 80 /min [facility] Respiratory rate 2021-02-02 00:20:00 16 /min [facility] Oxygen saturation in Arterial blood by Pulse oximetry 2021-02-02 00:20:00 97 /min [facility] Body temperature 2021-02-01 23:52:00 37.28 Tami [facility] Body height 2021-02-01 23:52:00 172.7 cm [facility] Body weight 2021-02-01 23:52:00 120.203 kg [facility] BMI 2021-02-01 23:52:00 40.29 kg/m2 [facility] Systolic blood pressure 2021-01-18 14:52:00 184 mm[Hg] Just got done drinking a Monster [facility] Diastolic blood pressure 2021-01-18 14:52:00 103 mm[Hg] Just got done drinking a Monster [facility] Heart rate 2021-01-18 14:52:00 71 /min [facility] Body temperature 2021-01-18 14:52:00 36.78 Tami [facility] Respiratory rate 2021-01-18 14:52:00 18 /min [facility] Body weight 2021-01-18 14:52:00 124.739 kg [facility] BMI 2021-01-18 14:52:00 43.07 kg/m2 [facility] Oxygen saturation in Arterial blood by Pulse oximetry 2021-01-18 14:52:00 100 /min [facility] Systolic blood pressure 2020-07-02 14:31:00 140 mm[Hg] [facility] Diastolic blood pressure 2020-07-02 14:31:00 99 mm[Hg] [facility] Heart rate 2020-07-02 14:29:00 66 /min [facility] Body temperature 2020-07-02 14:29:00 36.83 Tami [facility] Respiratory rate 2020-07-02 14:29:00 18 /min [facility] Body height 2020-07-02 14:29:00 170.2 cm [facility] [facility] Body weight 2020-07-02 14:29:00 124.739 kg [facility] BMI 2020-07-02 14:29:00 43.07 kg/m2 [facility] Oxygen saturation in Arterial blood by Pulse oximetry 2020-07-02 14:29:00 97 /min [facility] Systolic blood pressure 2020-07-02 14:31:00 140 mm[Hg] [facility] Diastolic blood pressure 2020-07-02 14:31:00 99 mm[Hg] [facility] Heart rate 2020-07-02 14:29:00 66 /min [facility] Body temperature 2020-07-02 14:29:00 36.83 Tami [facility] Respiratory rate 2020-07-02 14:29:00 18 /min [facility] Body height 2020-07-02 14:29:00 170.2 cm [facility] Body weight 2020-07-02 14:29:00 124.739 kg [facility] BMI 2020-07-02 14:29:00 43.07 kg/m2 [facility] Oxygen saturation in Arterial blood by Pulse oximetry 2020-07-02 14:29:00 97 /min [facility] Systolic blood pressure 2020-02-11 14:15:00 131 mm[Hg] [facility] Diastolic blood pressure 2020-02-11 14:15:00 85 mm[Hg] [facility] Heart rate 2020-02-11 14:15:00 73 /min [facility] Body temperature 2020-02-11 14:15:00 37.17 Tami [facility] Respiratory rate 2020-02-11 14:15:00 20 /min [facility] Body height 2020-02-11 14:15:00 170.2 cm [facility] Body weight 2020-02-11 14:15:00 120.203 kg [facility] BMI 2020-02-11 14:15:00 41.50 kg/m2 [facility] Oxygen saturation in Arterial blood by Pulse oximetry 2020-02-11 14:15:00 96 /min [facility] Systolic blood pressure 2020-02-11 14:15:00 131 mm[Hg] [facility] Diastolic blood pressure 2020-02-11 14:15:00 85 mm[Hg] [facility] Heart rate 2020-02-11 14:15:00 73 /min [facility] Body temperature 2020-02-11 14:15:00 37.17 Tami [facility] Respiratory rate 2020-02-11 14:15:00 20 /min [facility] Body height 2020-02-11 14:15:00 170.2 cm [facility] Body weight 2020-02-11 14:15:00 120.203 kg [facility] BMI 2020-02-11 14:15:00 41.50 kg/m2 [facility] Oxygen saturation in Arterial blood by Pulse oximetry 2020-02-11 14:15:00 96 /min [facility] Procedures Procedure Date / Time Performed Performing Clinician Source RAPID STREP SCREEN FOR GROUP A 2025-02-22 22:07:00 David Velazquez [facility] INFLUENZA A/B RSV COVID NAAT 2025-02-22 22:07:00 David Velazquez [facility] REAGENT STRIP/BLOOD GLUCOSE 2024-02-06 16:16:00 Deepti Davis - External CONSENT/REFUSAL FOR DIAGNOSIS AND TREATMENT 2023-04-13 00:05:05 Doctor Unassigned, [place] [facility] ASSIGNMENT OF BENEFITS 2023-04-06 21:27:48 Docto r Unassigned, [place] [facility] NOTICE OF PRIVACY PRACTICES 2023-04-06 20:05:58 Doctor Unassigned, [place] [facility] CONSENT/REFUSAL FOR DIAGNOSIS AND TREATMENT 2023-04-06 20:05:25 Doctor Unassigned, [place] [facility] WORKERS COMPENSATION 2021-03-10 05:01:00 Doctor Unassigned, [place] [facility] BASIC METABOLIC PANEL (NA, K, CL, CO2, GLUCOSE, BUN, CREATININE, CA) 2021-03-03 08:44:00 Pamela Lindsey [facility] CBC WITH DIFF 2021-03-03 08:44:00 Pamela Lindsey [facility] COMP. METABOLIC PANEL (28040) 2021-03-02 08:30:00 Pamela Lindsey [facility] CBC WITH DIFF 2021-03-02 08:30:00 Pamela Lindsey [facility] FECES CULTURE 2021-03-01 19:10:00 Nica Cohn [facility] OCCULT (GUAIAC) BLOOD 2021-03-01 19:10:00 Quentin Cohn [facility] FECAL LEUKOCYTES 2021-03-01 19:10:00 Nica Cohn [facility] LIPID PANEL (74420)(TOTAL CHOLESTEROL, TRIGLYCERIDES, HDL) 2021-03-01 07:28:00 Shayan [facility] GLYCOSYLATED HEMOGLOBIN (A1C) 2021-03-01 07:28:00 Shayan [facility] HEPATITIS B SURFACE ANTIBODY 2021-03-01 07:28:00 Shayan [facility] HEPATITIS B SURFACE ANTIGEN 2021-03-01 07:28:00 Shayan [facility] HCV ANTIBODY 2021-03-01 07:28:00 Shayan [facility] HAV ANTIBODY (IGG AND IGM) 2021-03-01 07:28:00 Shayan [facility] HEPATIC FUNCTION PANEL (87963) (ALB,T.PRO,BILI T,BU/BC,ALT,AST,ALK PHOS) 2021-03-01 07:03:00 Shayan [facility] BASIC METABOLIC PANEL (NA, K, CL, CO2, GLUCOSE, BUN, CREATININE, CA) 2021-03-01 07:03:00 Shayan [facility] CBC WITH DIFF 2021-03-01 07:03:00 [facility] 2021-03-01 07:03:00 Raman Downey [facility] ACTIVATED PARTIAL THRMPLAS PENNY 2021-03-01 07:03:00 Shayan [facility] COVID-19 (ID NOW RAPID TESTING) 2021-02-28 23:45:00 Campos Bermudez [facility] LAB ONLY COVID INTERPRETATION 2021-02-28 23:45:00 Campos Bermudez [facility] CT ABDOMEN PELVIS W CONTRAST 2021-02-28 21:59:05 Campos Bermudez [facility] CBC WITH DIFF 2021-02-28 21:23:00 Campos Bermudez [facility] URINALYSIS 2021-02-28 21:23:00 Campos [facility]ermudez [facility] LIPASE 2021-02-28 21:22:00 Campos Bermudez [facility] HEPATIC FUNCTION PANEL (60689) (ALB,T.PRO,BILI T,BU/BC,ALT,AST,ALK PHOS) 2021-02-28 21:22:00 [facility] MET[facility]OLIC PANEL (NA, K, CL, CO2, GLUCOSE, BUN, CREATININE, CA) 2021-02-28 21:22:[address] [facility] CONSENT/REFUSAL FOR DIAGNOSIS AND TREATMENT 2021-02-28 20:18:27 Doctor Unassigned, [place] [facility] LIPASE 2021-02-02 00:14:00 Brenda Cristobal [facility] MAGNESIUM 2021-02-02 00:14:00 Brenda Cristobal [facility] COMP. METABOLIC PANEL (27031) 2021-02-02 00:14:00 Brenda Cristobal [facility] CBC WITH DIFF 2021-02-02 00:14:00 Brenda Cristobal [facility] CONSENT/REFUSAL FOR DIAGNOSIS AND TREATMENT 2021-02-01 23:47:04 Doctor Unassigned, [place] [facility] CONSENT/REFUSAL FOR DIAGNOSIS AND TREATMENT 2021-01-18 14:48:47 Doctor Unassigned, [place] [facility] Encounters Start Date/Time End Date/Time Encounter Type Admission Type Attending Clinicians Care Facility Care Department Encounter ID Source 2021-06-27 10:31:32 Outpatient JUANITA MCGEE [facility] [id number] [facility] 2021-06-27 06:04:08 Emergency [facility] [id number] [facility] 2021-06-26 23:59:53 Emergency [facility] [id number] [facility] 2021-06-26 21:06:42 Emergency [facility] [id number] [facility] 2025-03-04 00:00:00 2025-03-04 10:02:02 Letter (Out) Campaigns, Generic Provider Campaigns, Generic Provider [facility] ([facility]ANUL[facility]) 1.2.840.114 350.1.13.10 4.2.7.2.686 [id number] [facility] 2025-02-22 17:00:00 2025-02-22 18:43:00 Emergency X RENNY, DAVID VELAZQUEZ, DAVID [facility] [id number] [facility] 2024-05-22 00:00:00 2024-05-22 00:00:00 Outpatient DUC ROBLES [id number] [facility] 2024-04-03 00:00:00 2024-04-03 00:00:00 Outpatient DUC ROBLES [id number] [facility] 2024-03-06 00:00:00 2024-03-06 00:00:00 Outpatient DUC ROBLES [id number] [facility] 2024-02-06 11:20:00 2024-02-06 11:20:00 Outpatient GODWIN LAURA ECHOLS [id number] [facility] 2024-02-06 10:30:00 2024-02-06 10:30:00 Outpatient YUE DEEPTI LAURA ECHOLS [id number] [facility] 2024-02-05 00:00:00 2024-02-05 00:00:00 Outpatient DUC ROBLES [id number] [facility] 2024-01-04 14:30:00 2024-01-04 14:30:00 Outpatient DUC ROBLES [id number] [facility] 2023-12-24 00:00:00 2023-12-24 00:00:00 Outpatient MD LAURA DUMONT [id number] [facility] 2023-12-14 00:00:00 2023-12-14 00:00:00 Outpatient DUC ROBLES [id number] [facility] 2023-12-12 00:00:00 2023-12-12 00:00:00 Outpatient PREZASDUC [id number] [facility] 2023-11-27 00:00:00 2023-11-27 00:00:00 Outpatient PREZAS, DUC ECHOLS [id number] [facility] 2023-11-26 00:00:00 2023-11-26 00:00:00 Outpatient PREZAS, DUC ECHOLS [id number] [facility] 2023-11-23 08:40:00 2023-11-23 08:40:00 Outpatient LAB90 LAURA ECHOLS [id number] [facility] 2023-11-22 10:00:00 2023-11-22 10:00:00 Outpatient PREZAS, DUC ECHOLS [id number] [facility] 2023-04-12 19:17:00 2023-04-12 20:17:[address] [facility] [id number] [facility] 2023-04-12 19:17:00 2023-04-12 20:17:00 Emergency Gemini Streeter [facility] 1.2.840.114 350.1.13.10 4.2.7.2.686 [id number] [facility] 2023-04-06 15:33:00 2023-04-06 16:42:00 Emergency X ANJALI MO HEE-KWANG [facility] E[facility] [id number] [facility] 2023-04-06 15:33:00 2023-04-06 16:42:00 Emergency Anjali Mo [facility] 1.2.840.114 350.1.13.10 4.2.7.2.686 [id number] [facility] 2021-05-02 00:00:00 2021-05-02 00:00:00 [facility] 1.2.840.114 350.1.13.10 4.2.7.2.686 [id number] [facility] 2021-05-01 19:42:58 2021-05-01 19:52:58 Laboratory Only Only, Ang Db Test Giovanna Thorne [facility] 1.2.840.114 350.1.13.10 4.2.7.2.686 [id number] [facility] 2021-05-01 19:40:00 2021-05-01 19:40:00 Outpatient R GIOVANNA THORNE [facility] [id number] [facility] 2021-04-15 08:30:00 2021-04-15 08:30:00 Outpatient R JUANITA MCGEE [facility] [id number] [facility] 2021-04-15 00:00:00 2021-04-15 00:00:00 Telephone Juanita Mcgee [facility] 1.2.840.114 350.1.13.10 4.2.7.2.686 [id number] [facility] 2021-03-14 00:00:00 2021-03-14 00:00:00 Prep For Surgery Peg Cortes [facility] 1.2.840.114 350.1.13.10 4.2.7.2.686 [id number] [facility] 2021-03-10 08:49:19 2021-03-10 09:34:06 Office Visit Juanita Mcgee [facility] 1.2.840.114 350.1.13.10 4.2.7.2.686 [id number] [facility] 2021-03-10 08:30:00 2021-03-10 08:30:00 Outpatient R JUANITA MCGEE [facility] [id number] [facility] 2021-03-10 00:00:00 2021-03-10 00:00:00 Orders Only Doctor Unassigned, [place] [facility] 1.2.840.114 350.1.13.10 4.2.7.2.686 [id number] [facility] 2021-03-07 00:00:00 2021-03-07 00:00:00 Telephone Juanita Mcgee [facility] Professio [facility] 1.2.840.114 350.1.13.10 4.2.7.2.686 [id number] [facility] 2021-03-04 00:00:00 2021-03-04 00:00:00 [facility] 1.2.840.114 350.1.13.10 4.2.7.2.686 [id number] [facility] 2021-02-28 15:32:00 2021-03-03 15:20:00 Hospital Encounter Campos Bermudez Jelani Abdullah, Yaman [facility] 1.2.840.114 350.1.13.10 4.2.7.2.686 [id number] [facility] 2021-02-01 18:54:00 2021-02-01 20:11:00 Emergency Brenda Cristobal [facility] 1.2.840.114 350.1.13.10 4.2.7.2.686 [id number] [facility] 2021-01-18 09:51:00 2021-01-18 10:57:00 Emergency Corona Reed [facility] 1.2.840.114 350.1.13.10 4.2.7.2.686 [id number] [facility] 2021-01-18 00:00:00 2021-01-18 00:00:00 Orders Only Doctor Unassigned, [place] [facility] 1.114 350.1.13.10 4.2.7.2.686 [id number] [facility] 2020-07-02 08:10:50 2020-07-02 08:30:50 Urgent Care Provider, [facility] Altagraciayesenia Nica [facility] Office [facility] One 1.114 350.1.13.10 4.2.7.2.686 [id number] [facility] 2020-07-02 08:10:50 2020-07-02 08:30:50 Urgent Care Provider, [facility] 1.114 350.1.13.10 4.2.7.2.686 [id number] 2020-07-02 08:00:00 2020-07-02 08:00:00 Outpatient R NICA NAVARRO [facility] [id number] [facility] 2020-02-11 09:04:57 2020-02-11 09:42:48 Urgent Care Pob1, Acute Care Clinic Jaimee Mandujano [facility] 1.114 350.1.13.10 4.2.7.2.686 [id number] [facility] 2020-02-11 09:04:57 2020-02-11 09:42:48 Urgent Care Pob1, Acute Care Clinic [facility] One .114 350.1.13.10 4.2.7.2.686 [id number] 2020-02-11 09:00:00 2020-02-11 09:00:00 Outpatient R JAIMEE MANDUJANO [facility] [id number] [facility] Results Test Description Test Time Test Comments Results Result Co mments Source Laura Jett - ExternalBASIC METABOLIC PANEL (NA, K, CL, CO2, GLUCOSE, BUN, CREATININE, CA)2021-03-03 12:00:45* Test Item Value Reference Range Interpretation Comme nts NA (test code = 9139683896) 137 mmol/L 135-145 K (test code = 6764562131) 4.0 mmol/L 3.5-5.0 CL (test code = 8824107368) 105 mmol/L 98-108 CO2 TOTAL (test code = 9555487173) 29 mmol/L 23-31 AGAP (test code = 2545310245) 2-16 BUN (test code = 3928872724) 13 mg/dL 7-23 GLUCOSE (test code = 4045593925) 95 mg/dL 70-110 CREATININE (test code = 4758883587) 0.74 mg/dL 0.60-1.25 CALCIUM (test code = 1434311105) 9.2 mg/dL 8.6-10.6 eGFR (test code = 2124151264) mL/min/1.73m2 MERVAT (test code = MERVAT) Association [...] or urine or abnormalities in imaging tests). [facility] WITH [id number] 11:43:23* Test Item Value Reference Range Interpretation [...] 33.1 g/dL 31.2-35.0 RDW-SD (test code = 13784-4) 39.7 fL 38.5-51.6 RDW-CV (test code = 788-0) 13.2 % 12.1-15.4 PLT (test code = 777-3) See_Comment [Automated message] The system which generated this result transmitted reference range: 150 - 328 10*3/?L. The reference range was not used to interpret this result as normal/abnormal. MPV (test code = 56577-5) 9.8 fL 9.8-13.0 NRBC/100 WBC (test code = 2227892326) See_Comment [Automated message] The system which generated this result transmitted reference range: 0.0 - 10.0 /100 WBCs. The reference range was not used to interpret this result as normal/abnormal. NRBC x10^3 (test code = 6591819120) <0.01 See_Comment [Automated message] The system which generated this result transmitted reference range: 10*3/?L. The reference range was not used to interpret this result as normal/abnormal. GRAN MAT (NEUT) % (test code = 770-8) 83.6 % IMM GRAN % (test code = 9041141830) 0.60 % LYMPH % (test code = 736-9) 10.6 % MONO % (test code = 5905-5) 4.9 % EOS % (test code = 713-8) 0.0 % BASO % (test code = 706-2) 0.3 % GRAN MAT x10^3(ANC) (test code = 7090887135) 13.34 10*3/uL 1.99-6.95 H IMM GRAN x10^3 (test code = 7599376038) 0.10 10*3/uL 0.00-0.06 H LYMPH x10^3 (test code = 731-0) 1.69 10*3/uL 1.09-3.23 MONO x10^3 (test code = 742-7) 0.78 10*3/uL 0.36-1.02 EOS x10^3 (test code = 711-2) <0.03 0.06-0.53 L BASO x10^3 (test code = 704-7) 0.04 10*3/uL 0.01-0.09 Lab Interpretation (test code = 44105-1) Abnormal [facility] [id number] 19:22:00* Test Item Value Reference Range Interpretation Comme nts Occult (guaiac) Blood (test code = 2335-8) Negative Negative Lab Interpretation (test cod e = 59216-1) Normal [facility] COVID [id number] 15:53:57COVID DMT InterpretationInterpretation/Recommendations:Molecular NAAT Tests for Active [...] whether the patient has produced antibodies to joyTSUP-IdF-0 virus. However, some patients may take longer to develop detectable antibodies, while some patients who were infected with SARS-CoV-2 may never develop antibodies. While antibodies to SARS-CoV-2 may provide some degree of immunity, at this time the strength and duration of the antibody response is unknown. Interpretation Result Comments:These interpretation comments are based upon all COVID-19 testing the patient has had at [facility], including molecular NAAT testing (more commonly known as PCR testing and Rapid IDNow testing) and antibody testing. It does not take into account any testing that a patient has hadoutside of the [facility] medical record. [facility] LABORATORY SERVICESCOVID [id number]-6 NAAT (no units)? ? Date ? Value ? 07/02/2020 ? Not Detected ? ? ? 02/11/2020 ? Positive (A) ? SARS-CoV-2 Rapid ID NOW (no units) ? ? Date ? Value ? 02/28/2021 ? Not Detected ? [facility] METABOLIC PANEL (15924) 2021-03-02 09:26:09* Test Item Value Reference Range Interpretation Comme nts NA (test code = 6833029400) 136 mmol/L 135-145 K (test code = 2120664487) 4.1 mmol/L 3.5-5.0 CL (test code = 3201660560) 103 mmol/L 98-108 CO2 TOTAL (test code = 9161737061) 27 mmol/L 23-31 AGAP (test code = 8346267329) 2-16 BUN (test code = 5682075220) 17 mg/dL 7-23 GLUCOSE (test code = 1539929551) 128 mg/dL 70-110 H CREATININE (test code = 9979380637) 0.79 mg/dL 0.60-1.25 TOTAL BILI (test code = 7086505547) 0.7 mg/dL 0.1-1.1 CALCIUM (test code = 3845739787) 9.3 mg/dL 8.6-10.6 T PROTEIN (test code = 7986435336) 6.6 g/dL 6.3-8.2 ALBUMIN (test code = 1272719054) 3.9 g/dL 3.5-5.0 ALK PHOS (test code = 8707595711) 77 U/L 34-122 ALTv (test code = 1742-6) 57 U/L 5-50 H AST(SGOT) (test code = 2926055859) 29 U/L 13-40 eGFR (test code = 4913550228) mL/min/1.73m2 MERVAT (test code = MERVAT) Association [...] imaging tests). Lab Interpretation (test code = 89046-1) Abnormal [facility] WITH [id number] 08:46:58* Test Item Value Reference Range Interpretation [...] 33.5 g/dL 31.2-35.0 RDW-SD (test code = 84945-3) 39.4 fL 38.5-51.6 RDW-CV (test code = 788-0) 13.2 % 12.1-15.4 PLT (test code = 777-3) See_Comment [Automated message] The system which generated this result transmitted reference range: 150 - 328 10*3/?L. The reference range was not used to interpret this result as normal/abnormal. MPV (test code = 59181-4) 9.4 fL 9.8-13.0 L NRBC/100 WBC (test code = 1072830188) See_Comment [Automated message] The system which generated this result transmitted reference range: 0.0 - 10.0 /100 WBCs. The reference range was not used to interpret this result as normal/abnormal. NRBC x10^3 (test code = 5629995878) <0.01 See_Comment [Automated message] The system which generated this result transmitted reference range: 10*3/?L. The reference range was not used to interpret this result as normal/abnormal. GRAN MAT (NEUT) % (test code = 770-8) 83.3 % IMM GRAN % (test code = 4826705011) 0.30 % LYMPH % (test code = 736-9) 11.0 % MONO % (test code = 5905-5) 5.0 % EOS % (test code = 713-8) 0.1 % BASO % (test code = 706-2) 0.3 % GRAN MAT x10^3(ANC) (test code = 9722137164) 12.88 10*3/uL 1.99-6.95 H IMM GRAN x10^3 (test code = 7958646842) 0.04 10*3/uL 0.00-0.06 LYMPH x10^3 (test code = 731-0) 1.70 10*3/uL 1.09-3.23 MONO x10^3 (test code = 742-7) 0.78 10*3/uL 0.36-1.02 EOS x10^3 (test code = 711-2) <0.03 0.06-0.53 L BASO x10^3 (test code = 704-7) 0.05 10*3/uL 0.01-0.09 Lab Interpretation (test code = 83503-6) Abnormal [facility] [id number] 00:37:23* Test Item Value Reference Range Interpretation Comme nts Fecal Leukocytes (test code = 9674382529) Positive Negative A Lab Interpretation (test cod e = 56769-7) Abnormal [facility] Center[facility]AT[facility]IS B SURFACE [id number] 17:59:51* Test Item Value Reference Range Interpretation Comme nts HBsAB (test code = 0431963893) Negative HBsAb Semi-Quantitative (test code = 6842242998) mIU/mL MERVAT (test code = MERVAT) Interpretation: ?Hepatitis B Surface Antibody ? Negative - Patient is considered to be not immune to infection with HBV. ? ? Positive - Anti-HBs detected at greater than or equal to 12 mIU/mL. ?Patient is considered to be immune to infection with HBV. ? [facility]ODY (IGG AND IGM)2021-03-01 17:59:51 * Test Item Value Reference Range Interpretation Comme nts HAV Total (test code = 4144466920) Negative HAVT Semi-Quantitative (test code = 5168794946) [facility] CenterHCV [id number] 17:59:50* Test Item Value Reference Range Interpretation Comme nts HCV Ab (test code = 84329-6) Negative HCV Semi-Quantitative (test code = 65618-4) [facility] B SURFACE [id number] 17:43:34 * Test Item Value Reference Range Interpretation Comme nts HBsAg Semi-Quantitative (isak t code = 5195-3) Negative Negative [facility] Center[facility] with [id number] 11:40:35* Test Item Value Reference Range Interpretation Comme nts WBC (test code = 6690-2) See_Comment H [Automated [employer]] The system which generated this result [...] 33.7 g/dL 31.2-35.0 RDW-SD (test code = 38802-2) 38.5 fL 38.5-51.6 RDW-CV (test code = 788-0) 12.9 % 12.1-15.4 PLT (test code = 777-3) See_Comment [Automated [employer]] The system which generated this result transmitted reference range: 150 - 328 10*3/?L. The reference range was not used to interpret this result as normal/abnormal. MPV (test code = 04894-8) 10.2 fL 9.8-13.0 IPF % (test code = 4115151422) 2.4 % 1.2-10.7 Platelet count measured by fluorescence method. NRBC/100 WBC (test code = 2576180070) See_Comment [Automated [employer]] The system which generated this result transmitted reference range: 0.0 - 10.0 /100 WBCs. The reference range was not used to interpret this result as normal/abnormal. NRBC x10^3 (test code = 4345201083) <0.01 See_Comment [Automated [employer]] The system which generated this result transmitted reference range: 10*3/?L. The reference range was not used to interpret this result as normal/abnormal. GRAN MAT (NEUT) % (test code = 770-8) 91.2 % IMM GRAN % (test code = 1632249077) 0.50 % LYMPH % (test code = 736-9) 7.2 % MONO % (test code = 5905-5) 0.9 % EOS % (test code = 713-8) 0.0 % BASO % (test code = 706-2) 0.2 % GRAN MAT x10^3(ANC) (test code = 9353022665) 13.95 10*3/uL 1.99-6.95 H IMM GRAN x10^3 (test code = 8270859054) 0.07 10*3/uL 0.00-0.06 H LYMPH x10^3 (test code = 731-0) 1.10 10*3/uL 1.09-3.23 MONO x10^3 (test code = 742-7) 0.14 10*3/uL 0.36-1.02 L EOS x10^3 (test code = 711-2) <0.03 0.06-0.53 L BASO x10^3 (test code = 704-7) 0.03 10*3/uL 0.01-0.09 ROULEAUX (test code = 7797-4) Present See_Comment A [Automated messa ge] The system which generated this result transmitted reference range: (none). The reference range was not used to interpret this result as normal/abnormal. Lab Interpretation (test code = 91026-4) Abnormal [facility] (32881)(TOTAL CHOLESTEROL, TRIGLYCERIDES, HDL)2021-03-01 10:18:25* Test Item Value Reference Range Interpretation Comme nts CHOL (test code = 6335321521) 187 mg/dL 120-200 HDL (test code = 2123483535) 38 mg/dL >40 L HDLC RATIO (test code = 8427875873) See_Comment [Automated [employer]] The system which generated this result transmitted reference range: <=5.0. The reference range was not used to interpret this result as normal/abnormal. TRIG (test code = 9660340866) 91 mg/dL 30-170 LDL CHOL (test code = 75983-4) 131 mg/dL See_Comment [Automated [employer]] The system which generated this result transmitted reference range: <=160. The reference range was not used to interpret this result as normal/abnormal. VLDL (test code = 2267870212) 18 mg/dL 5-60 Lab Interpretation (test code = 06037-9) Abnormal [facility] CenterBasi Metabolic Panel (NA, K, CL, CO2, GLUCOSE, BUN, CREATININE, CA)2021-03-01 10:17:39* Test Item Value Reference Range Interpretation Comme nts NA (test code = 3045460108) 138 mmol/L 135-145 K (test code = 5448520801) 4.2 mmol/L 3.5-5.0 CL (test code = 8618047348) 102 mmol/L 98-108 CO2 TOTAL (test code = 4877828334) 27 mmol/L 23-31 AGAP (test code = 2752191469) 2-16 BUN (test code = 7672974398) 15 mg/dL 7-23 GLUCOSE (test code = 9359140267) 144 mg/dL 70-110 H CREATININE (test code = 9708882670) 0.66 mg/dL 0.60-1.25 CALCIUM (test code = 5522753417) 9.8 mg/dL 8.6-10.6 eGFR (test code = 1956387546) mL/min/1.73m2 MERVAT (test code = MERVAT) Association [...] imaging tests). Lab Interpretation (test code = 81841-3) Abnormal [facility] CenterHEPATIC FUNCTION PANEL (10066) (ALB,T.PRO,BILI T,BU/BC,ALT,AST,ALK PHOS)2021-03-01 10:17:38* Test Item Value Reference Range Interpretation Comme nts TOTAL BILI (test code = 0947888455) 0.6 mg/dL 0.1-1.1 BILI UNCON (test code = 8020741785) 0.4 mg/dL 0.1-1.1 BILI CONJ (test code = 0747975393) 0.0 mg/dL 0.0-0.3 T PROTEIN (test code = 2166691118) 7.5 g/dL 6.3-8.2 ALBUMIN (test code = 2199283292) 4.2 g/dL 3.5-5.0 ALK PHOS (test code = 5633643096) 88 U/L 34-122 ALTv (test code = 1742-6) 76 U/L 5-50 H AST(SGOT) (test code = 7623968410) 41 U/L 13-40 H Lab Interpretation (test cod e = 63243-6) Abnormal [facility] CenterGLYCOSYLATED HEMOGLOBIN (A1C)2021-03-01 09:37:27* Test Item Value Reference Range Interpretation Comme [facility] HGB A1C (test code = 4548-4) 5.8 % 4.0-5.7 H MERVAT (test code = MERVAT) Reference RangesNormal: <5.7%Prediabetes: 5.7 - 6.4%Diabetes: > 6.5% Lab Interpretation (test code = 14527-4) Abnormal [facility] CenteraPTT2021-07-06 09:25:53* Test Item Value Reference Range Interpretation Comme [facility] APTT Patient (test code = 3173-2) See_Comment [Automated message] The system which generated this result transmitted reference range: 23 - 38 Seconds. The reference range was not used to interpret this result as normal/abnormal. MERVAT (test code = MERVAT) The [facility] patient population mean normal value for aPTT is 30 seconds. Lab Interpretation (test code = 84362-6) Normal [facility] CenterProthrombin Time / [id number] 09:23:36* Test Item Value Reference Range Interpretation Comme [facility] PROTIME PATIENT (test code = 5964-2) See_Comment [Automated messa ge] The system which generated this result transmitted reference range: 12.0 - 14.7 Seconds. The reference range was not used to interpret this result as normal/abnormal. INR (test code = 6301-6) Normal INR <1.1; Warfarin Therapeutic range 2.0 to 3.0 or 2.5 to 3.5, depending upon the indications. Lab Interpretation (test code = 45493-5) Normal [facility] CenterCOVID-19 (ID NOW RAPID TESTING)2021-03-01 00:25:13* Test Item Value Reference Range Interpretation Comme nts SARS-CoV-2 Rapid ID NOW (test code = 74044-7) Not Detected Not Detected MERVAT (test code = MERVAT) ID NOW COVID-19 As say is an isothermal nucleic acid amplification test intended for the qualitative detection of nucleic acid from SARS-CoV-2 viral RNA in nasopharyngeal (RELOCATION SPECIALIST) specimens. It is used under Emergency Use [...] clinically indicated. Lab Interpretation (test code = 44318-8) Normal [facility] CenterCT ABDOMEN PELVIS W [id number] 00:23:52Acute inflammation involving the cecum and extending into the ostium of theappendix. Right lower quadrant mesentery shows fat stranding and prominentreactive lymph nodes. No evidence of perforation or abscess formation. Preliminary Report Dictated by Resident: Mihaela Williamson MD., h ave reviewed this study and agree with theabove [...] No suspicious lytic or sclerotic bony lesions. [facility], Radiant Results Inft User - 02/28/2021 7:24 [...] this study and agree with theabove report. [facility] Metabolic Panel (NA, K, CL, CO2, GLUCOSE, BUN, CREATININE, CA)2021-02-28 21:48:21* Test Item Value Reference Range Interpretation Comme nts NA (test code = 3695793493) 142 mmol/L 135-145 K (test code = 5332932099) 3.7 mmol/L 3.5-5.0 CL (test code = 9634796908) 103 mmol/L 98-108 CO2 TOTAL (test code = 5834221916) 32 mmol/L 23-31 H AGAP (test code = 3109114530) 2-16 BUN (test code = 7018554952) 16 mg/dL 7-23 GLUCOSE (test code = 3514827692) 109 mg/dL 70-110 CREATININE (test code = 2773334847) 0.82 mg/dL 0.60-1.25 CALCIUM (test code = 4053765535) 9.5 mg/dL 8.6-10.6 eGFR (test code = 3572984939) mL/min/1.73m2 MERVAT (test code = MERVAT) Association [...] imaging tests). Lab Interpretation (test code = 43841-9) Abnormal [facility] CenterHepatic Function Panel (ALB, T.PRO, BILI T, BU/BC, ALT, AST, ALK PHOS)2021-02-28 21:48:20* Test Item Value Reference Range Interpretation Comme nts TOTAL BILI (test code = 9971680732) 0.5 mg/dL 0.1-1.1 BILI UNCON (test code = 6265926973) 0.3 mg/dL 0.1-1.1 BILI CONJ (test code = 3061030572) 0.0 mg/dL 0.0-0.3 T PROTEIN (test code = 1744720006) 7.8 g/dL 6.3-8.2 ALBUMIN (test code = 9946776102) 4.2 g/dL 3.5-5.0 ALK PHOS (test code = 6036467853) 95 U/L 34-122 ALTv (test code = 1742-6) 86 U/L 5-50 H AST(SGOT) (test code = 0905735579) 50 U/L 13-40 H Lab Interpretation (test cod e = 71786-1) Abnormal [facility] CenterLipase [id number] 21:47:55* Test Item Value Reference Range Interpretation Comme nts LIPASE (test code = 6320174913) 192 U/L 0-220 Lab Interpretation (test cod e = 34715-3) Normal [facility] CenterUrinalysis2021-07-05 21:47:39* Test Item Value Reference Range Interpretation Comme nts APPEARANCE (test code = 3123114701) Clear Clear COLOR (test code = 8699946266) Yellow Yellow PH (test code = 9354932319) 4.8-8.0 SP GRAVITY (test code = 6632315654) 1.003-1.030 GLU U QUAL (test code = 7764325599) Normal Normal BLOOD (test code = 7484038308) Negative Negative KETONES (test code = 8309667468) Negative Negative PROTEIN (test code = 2887-8) Negative Negative UROBILIN (test code = 6444285220) Normal Normal BILIRUBIN (test code = 4986650165) Negative Negative NITRITE (test code = 8828975559) Negative Negative LEUK SHAREE (test code = 3168552505) Negative Negative RBC/HPF (test code = 6978858404) See_Comment [Automated messa ge] The system which generated this result transmitted reference range: 0 - 3 HPF. The reference range was not used to interpret this result as normal/abnormal. WBC/HPF (test code = 8566253830) See_Comment [Automated messa ge] The system which generated this result transmitted reference range: 0 - 5 HPF. The reference range was not used to interpret this result as normal/abnormal. BACTERIA (test code = 0380685002) Negative Negative SQ EPITH (test code = 4264152427) <1 HPF [facility] CenterCB with [id number] 21:37:14* Test Item Value Reference Range Interpretation [...] 32.8 g/dL 31.2-35.0 RDW-SD (test code = 07932-6) 40.2 fL 38.5-51.6 RDW-CV (test code = 788-0) 13.2 % 12.1-15.4 PLT (test code = 777-3) See_Comment [Automated [employer]] The system which generated this result transmitted reference range: 150 - 328 10*3/?L. The reference range was not used to interpret this result as normal/abnormal. MPV (test code = 86575-2) 9.6 fL 9.8-13.0 L NRBC/100 WBC (test code = 8424464578) See_Comment [Automated [employer]] The system which generated this result transmitted reference range: 0.0 - 10.0 /100 WBCs. The reference range was not used to interpret this result as normal/abnormal. NRBC x10^3 (test code = 2804230367) <0.01 See_Comment [Automated [employer]] The system which generated this result transmitted reference range: 10*3/?L. The reference range was not used to interpret this result as normal/abnormal. GRAN MAT (NEUT) % (test code = 770-8) 74.7 % IMM GRAN % (test code = 9271472525) 0.50 % LYMPH % (test code = 736-9) 17.6 % MONO % (test code = 5905-5) 5.7 % EOS % (test code = 713-8) 0.9 % BASO % (test code = 706-2) 0.6 % GRAN MAT x10^3(ANC) (test code = 4941284715) 8.24 10*3/uL 1.99-6.95 H IMM GRAN x10^3 (test code = 1410013154) 0.05 10*3/uL 0.00-0.06 LYMPH x10^3 (test code = 731-0) 1.94 10*3/uL 1.09-3.23 MONO x10^3 (test code = 742-7) 0.63 10*3/uL 0.36-1.02 EOS x10^3 (test code = 711-2) 0.10 10*3/uL 0.06-0.53 BASO x10^3 (test code = 704-7) 0.07 10*3/uL 0.01-0.09 Lab Interpretation (test code = 64458-5) Abnormal [facility] CenterCOMP. METABOLIC PANEL (22324)2021-02-02 00:42:09* Test Item Value Reference Range Interpretation Comme nts NA (test code = 5471849327) 139 mmol/L 135-145 K (test code = 5450737313) 3.8 mmol/L 3.5-5.0 CL (test code = 4256508602) 101 mmol/L 98-108 CO2 TOTAL (test code = 2252265700) 30 mmol/L 23-31 AGAP (test code = 5508727450) 2-16 BUN (test code = 3406031873) 17 mg/dL 7-23 GLUCOSE (test code = 1239137318) 93 mg/dL 70-110 CREATININE (test code = 8124988021) 0.92 mg/dL 0.60-1.25 TOTAL BILI (test code = 6927334608) 0.8 mg/dL 0.1-1.1 CALCIUM (test code = 2692279564) 9.6 mg/dL 8.6-10.6 T PROTEIN (test code = 6712324005) 7.9 g/dL 6.3-8.2 ALBUMIN (test code = 6114687760) 4.5 g/dL 3.5-5.0 ALK PHOS (test code = 1563770178) 95 U/L 34-122 ALTv (test code = 1742-6) 104 U/L 5-50 H AST(SGOT) (test code = 6758639476) 55 U/L 13-40 H eGFR (test code = 2017011323) mL/min/1.73m2 MERVAT (test code = MERVAT) Association [...] imaging tests). Lab Interpretation (test code = 00185-0) Abnormal [facility] CenterMAGNESIUM2021-06-09 00:42:09* Test Item Value Reference Range Interpretation Comme nts MAGNESIUM (test code = 8611337588) 2.0 mg/dL 1.7-2.4 Lab Interpretation (test cod e = 71379-8) Normal [facility] CenterLIPASE2021-06-09 00:41:48* Test Item Value Reference Range Interpretation Comme nts LIPASE (test code = 1976107201) 101 U/L 0-220 Lab Interpretation (test cod e = 87156-9) Normal [facility] CenterCB WITH [id number] 00:33:27* Test Item Value Reference Range Interpretation Comme nts WBC (test code = 6690-2) See_Comment [Automated messa ge] The system which generated this result transmitted reference range: 4.20 - 10.70 10*3/?L. The reference range was not used to interpret this result as normal/abnormal. RBC (test code = 789-8) See_Comment H [Automated messa ge] The system [...] 33.4 g/dL 31.2-35.0 RDW-SD (test code = 31187-3) 39.3 fL 38.5-51.6 RDW-CV (test code = 788-0) 13.2 % 12.1-15.4 PLT (test code = 777-3) See_Comment [Automated [employer]] The system which generated this result transmitted reference range: 150 - 328 10*3/?L. The reference range was not used to interpret this result as normal/abnormal. MPV (test code = 22329-7) 9.3 fL 9.8-13.0 L NRBC/100 WBC (test code = 2752573492) See_Comment [Automated [employer]] The system which generated this result transmitted reference range: 0.0 - 10.0 /100 WBCs. The reference range was not used to interpret this result as normal/abnormal. NRBC x10^3 (test code = 4786322394) <0.01 See_Comment [Automated [employer]] The system which generated this result transmitted reference range: 10*3/?L. The reference range was not used to interpret this result as normal/abnormal. GRAN MAT (NEUT) % (test code = 770-8) 73.6 % IMM GRAN % (test code = 2099666415) 0.20 % LYMPH % (test code = 736-9) 18.7 % MONO % (test code = 5905-5) 6.2 % EOS % (test code = 713-8) 0.8 % BASO % (test code = 706-2) 0.5 % GRAN MAT x10^3(ANC) (test code = 3292832346) 7.22 10*3/uL 1.99-6.95 H IMM GRAN x10^3 (test code = 8053865516) <0.03 0.00-0.06 LYMPH x10^3 (test code = 731-0) 1.84 10*3/uL 1.09-3.23 MONO x10^3 (test code = 742-7) 0.61 10*3/uL 0.36-1.02 EOS x10^3 (test code = 711-2) 0.08 10*3/uL 0.06-0.53 BASO x10^3 (test code = 704-7) 0.05 10*3/uL 0.01-0.09 Lab Interpretation (test code = 69221-5) Abnormal [facility] Notes Date/Time Note Provider Source 2025-02-22 18:42:50 Patient discharged to home. Patient given printed and verbal discharge instructions regarding diagnosis. Instructed to follow up with PCP. Patient verbalized understanding of instructions. Patient awake, alert, oriented, respirations even and unlabored, skin warm and dry, color appropriate for race. No adverse reaction to meds given in ER noted upon discharge. Discussed medications. Advised to seek medical attention for new/prolonged/worsening of symptoms, patient ambulated from unit with steady gait in no apparent distress. Sravan Lange RN [facility] 2025-02-22 16:55:37 Pt. Presents ambulatory with steady gait with C/O productive cough, congestion, sore throat, fever (100.4 F), headache x2 days; denies N/V/D; pt. 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 Does not appear to be in distress & denies CP & SOB @ this time Candy Betts RN [facility] 2024-02-06 11:12:53 No noted acute distress. Vital signs stable. [phone] (home) [facility] 2023-04-12 20:15:12 Formatting of this n ote [...] in no apparent distress, Holli Garcia RN [facility] 2023-04-12 19:13:25 Formatting of this n ote might be different from the original. Pt states that he was seen her last Sunday and dx with left ear infection and placed on Zpak, pt states that he finished the antibiotics on Sunday and on Sunday he began to have pain to the ear and he felt a pop and now has drainage. [facility] 2023-04-12 19:04:00 Formatting of this n ote is different from the original. [facility] Emergency Department Note Patient Name: Ranulfo Gamboa Jr. Date of : 1985 37 year old male Treatment Room: [place] [address] Primary Care Physician: PATIENT DOES NOT HAVE A PCP Patient Escorted by: Family [5] Mode of Arrival: Personal means [1] EMS Treatment Prior to ED Arrival: SCALLOP CUTTER treatment: Medication (comment) SCALLOP CUTTER treatment comments: manuelito @ 1400 Travel and [...] History provided by: Patient and significant other spanish interpreter used: No Ear Pain Location: Left Behind [...] Johansen PA-C / Nicolás Kellogg MD VIVIANA# [id number] DPS# [id number] Hi Lic.# [id number] NPI# [id number] START taking Modified Medications as Prescribed No medications on file STOP taking these medications No medications on file Follow-up: Electronically signed by: Gemini Streeter MD 04/12/231951 T [facility] 2023-04-06 16:41:38 Formatting of this n ote [...] with steady gait, in no apparent distress. [facility] 2023-04-06 15:29:40 Formatting of this n ote [...] amb without assistance. Appears in no distress. [facility] - Health 2023-04-06 15:05:00 Formatting of this n ote is different from the original. [facility] Emergency Department Note Patient Name: Ranulfo Gamboa Jr. Date of : 1985 37 year old male Treatment Room: [place] [address] Primary Care Physician: PATIENT DOES NOT HAVE [...] Eval: ED Events Date/Time Event User Comments 04/06/23 155 Medical Screening Begins DIONE MO DO -- 04/06/23 155 First Provider Evaluation CHEPE DIONE GONZALEZ -- No notes of EC Admission Criteria [...] ID #[id number] Anjali Mo DO 04/06/23 1608 [facility]
--- NOTE | 2025-06-01 10:20 | RAD REPORT ---
EXAM:Extremity Venous Uni Ltd HISTORY: Right leg pain TECHNIQUE: Sonographic evaluation right lower extremity performed.Grayscale, color and spectral jay sis performed on all vessels COMPARISON: None. FINDINGS: Right common femoral, superficial femoral, greater saphenous, popliteal and posterior tibial veins ar e compressible and demonstrate augmentation. Doppler demonstrates good flow. IMPRESSION: No evidence of deep venous thrombosis involving the right lower extremity.
--- NOTE | 2025-06-01 10:23 | EDPHYS ---
Physician Documentation [facility] Name: Zafar Guerin Jr Age: 39 yrs Sex: Male : 1985 Arrival Date: 06/01/2025 Time: 08:44 Bed 13 Private MD: ED Physician Flavio Guzman HPI: 06/01 09:03 This 39 yrs old Male presents to ER via Ambulatory with complaints of Knee kb Pain - and swelling. 09:03 Pt is a 39 year old male who presents for pain to right knee, tightness in right calf kb that started last night. 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 States he felt a pop behind right knee last night and started having pain.. Historical: - Allergies: 09:00 Amoxicillin; jl7 09:00 Iodine (Hives); jl7 09:00 PENICILLINS; jl7 - Home Meds: 09:00 Metformin Oral [Active]; jl7 - PMHx: 09:00 Asthma; Diabetes mellitus; PRE; jl7 - PSHx: 09:00 ear tubes; jl7 - Immunization history:: Adult Immunizations unknown. - Infectious Disease History:: Denies. - Social history:: Smoking status: Patient denies any tobacco usage or history of. ROS: 09:01 Constitutional: As per HPI kb Exam: 09:01 Constitutional: This is a well developed, well nourished patient who is awake, alert, kb and in no acute distress. Head/Face: Normocephalic, atraumatic. ENT: Moist Mucous membranes Cardiovascular: Regular rate Respiratory: Respirations even and unlabored. No increased work of breathing. Talking in full sentences Skin: Warm, dry with normal turgor. Normal color. Neuro: Awake and alert, GCS 15, oriented to person, place, time, and situation. 09:01 Musculoskeletal/extremity: Extremities: grossly normal except: noted in the right calf: pain, tenderness, ROM: intact in all extremities, Circulation is intact in all extremities. Sensation intact. Weight bearing: able to fully bear weight, Vital Signs: 08:58 BP 139 / 90; Pulse 69; Resp 17; Temp 97; Pulse Ox 95% ; Weight 145.15 kg; Height 5 ft. jl7 8 in. ; Pain 6/10; 10:43 BP 116 / 67; Pulse 64; Resp 18; Pulse Ox 96% ; bp 08:58 Body Mass Index 48.66 (145.15 kg, 172.72 cm) jl7 08:58 Pain Scale: Adult jl7 MDM: 08:51 Medical Screening Exam initiated kb 09:03 Data reviewed: vital signs, nurses notes. kb 10:22 Differential diagnosis: fracture, sprain, strain, dvt, bakers cyst. Counseling: I had a kb detailed discussion with the patient and/or guardian regarding the historical points, exam findings, and any diagnostic results supporting the discharge/admit diagnosis, radiology results, the need for outpatient follow up, a family practitioner, to return to the emergency department if symptoms worsen or persist or if there are any questions or concerns that arise at home. 06/01 08:55 Order name: US Extremity Venous Unilateral Ltd; Complete Time: 10:21 kb Administered Medications: No medications were administered Disposition Summary: 06/01/25 10:22 Discharge Ordered Notes: Location: Home kb Condition: Stable kb Diagnosis - Pain in right leg kb Followup: kb - With: Emergency Department - When: As needed - Reason: Worsening of condition Followup: kb - With: Private Physician - When: 2 - 3 days - Reason: Recheck today's complaints, Continuance of care, Re-evaluation by your physician Discharge Instructions: - Discharge Summary Sheet kb - Muscle Strain, [id number]-vm-Nlwl kb Forms: - Work release form kb - Medication Reconciliation Form kb - Antibiotic Education kb - Prescription Opioid Use kb - Patient Portal Instructions kb - Leadership Thank You Letter kb Prescriptions: - Diclofenac Sodium 75 mg Oral tablet, delayed release (enteric coated) - take 1 tablet ORAL route 2 times per day As needed; 30 tablet; Refills: 0, kb Product Selection Permitted - orphenadrine citrate 100 mg Oral Tablet Sustained Release - take 1 tablet ORAL route 2 times per day As needed; 20 tablet; Refills: 0, kb Product Selection Permitted Signatures: Dispatcher [employer] Yoana Jacques FNP-C FNP-Ckb Leal, Jahala, RN RN jl7
--- NOTE | 2025-06-01 10:23 | ER ---
Nurse's Notes [facility] Name: Zafar Guerin Jr Age: 39 yrs Sex: Male : 1985 Arrival Date: 06/01/2025 Time: 08:44 Bed 13 Private MD: Diagnosis: Pain in right leg Presentation: 06/01 08:58 Chief complaint: Patient states: Right knee pain, felt a pop last night. Coronavirus jl7 screen: At this time, the client does not indicate any symptoms associated with coronavirus-19. Ebola Screen: No symptoms or risks identified at this time. Initial Sepsis Screen: Does the patient meet any 2 criteria? No. Patient's initial sepsis screen is negative. Does the patient have a suspected source of infection? No. Patient's initial sepsis screen is negative. Risk Assessment: Do you want to hurt yourself or someone else? Patient reports no desire to harm self or others. Onset of symptoms was May 01, 2025. 08:58 Method Of Arrival: Ambulatory [facility] 08:58 Acuity: NUBIA 4 jl7 Triage Assessment: 09:00 General: Appears in no apparent distress. uncomfortable, Behavior is calm, cooperative, jl7 appropriate for age. Pain: Complains of pain in right knee Pain currently is 6 out of 10 on a pain scale. Historical: - Allergies: 09:00 Amoxicillin; jl7 09:00 Iodine (Hives); jl7 09:00 PENICILLINS; jl7 - Home Meds: 09:00 Metformin Oral [Active]; jl7 - PMHx: 09:00 Asthma; Diabetes mellitus; PRE; jl7 - PSHx: 09:00 ear tubes; jl7 - Immunization history:: Adult Immunizations unknown. - Infectious Disease History:: Denies. - Social history:: Smoking status: Patient denies any tobacco usage or history of. Screenin:00 [facility] ED Fall Risk Assessment (Adult) History of falling in the last 3 months, bp including since admission No falls in past 3 months (0 pts) Confusion or Disorientation No (0 pts) Intoxicated or Sedated No (0 pts) Impaired Gait No (0 pts) Mobility Assist Device Used No (0 pt) Altered Elimination No (0 pt) Score/Fall Risk Level 0 - 2 = Low Risk Oriented to surroundings. Abuse screen: Denies threats or abuse. Denies injuries from another. Nutritional screening: No deficits noted. Tuberculosis screening: No symptoms or risk factors identified. Assessment: 09:00 General: SEE TRIAGE NOTE. bp Vital Signs: 08:58 BP 139 / 90; Pulse 69; Resp 17; Temp 97; Pulse Ox 95% ; Weight 145.15 kg; Height 5 ft. jl7 8 in. ; Pain 6/10; 10:43 BP 116 / 67; Pulse 64; Resp 18; Pulse Ox 96% ; bp 08:58 Body Mass Index 48.66 (145.15 kg, 172.72 cm) jl7 08:58 Pain Scale: Adult 7 ED Course: 08:50 Patient arrived in ED. al6 08:51 [facility]C [facility] kb 08:51 Flavio Guzman MD is Attending Physician. kb 08:56 Edgar Steward, RN is Primary Nurse. bp 09:00 Triage completed. jl7 09:00 Arm band placed on right wrist. jl7 09:00 Patient has correct armband on for positive identification. bp 09:29 US Extremity Venous Unilateral Ltd In Process Unspecified. EDMS 10:44 No provider procedures requiring assistance completed. Patient did not have IV access bp during this emergency room visit. Administered Medications: No medications were administered Medication: 09:00 VIS not applicable for this client. bp Outcome: 10:22 Discharge ordered by MD. kb 10:44 Discharged to home ambulatory, bp 10:44 Condition: stable 10:44 Discharge instructions given to patient, Instructed on discharge instructions, follow up and referral plans. medication usage, Demonstrated understanding of instructions, follow-up care, medications, Prescriptions given X 2, 10:45 Patient left the ED. bp Signatures: Dispatcher [employer] EDMS Yoana Garcia FNP-C FNP-Ckb Leal, Jahala, RN RN jlEdgar Butts, RN RN Ada Loyola al6
[2025-06-01 10:49] VITALS: TEMP 97
[2025-06-01 10:51] VITALS: BP 116/67; O2SAT 96
== END 2025-06-01 10:45 | disposition home or self-care (01) ==
LOC: ER 08:44
DX: M79.661 Pain in right lower leg (principal); E11.9 Type 2 diabetes mellitus without complications; J45.909 Unspecified asthma, uncomplicated; Z88.0 Allergy status to penicillin
CPT/HCPCS: 93971; 99283